=== PATIENT | male | born 1965 | race African-American/Black ===

== ENCOUNTER 2019-07-28 14:30 | Emergency (ER) | payer SELFPAY ==
--- NOTE | ~2019-07-28 | XR_ITS ---
EXAMINATION: XR abdomen obstructive series DATE: 07/28/2019 17:07 INDICATION: Nausea and vomiting TECHNIQUE: Supine and upright views of the abdomen. FINDINGS: No prior studies for comparison. The visualized lung parenchyma is normal.. There is a nonobstructive bowel gas pattern. Gas and stool are seen throughout the colon to the level of the rectum. There is no free air. IMPRESSION: 1. No acute abdominal abnormality. Reviewed, dictated and finalized at location A. [facility]
[2019-07-28 14:32] VITALS: BP 134/88; PULSE 85; RESP 20; TEMP 36.7; O2SAT 99
[2019-07-28 14:47] LABS: Basophils Percent Auto 0.5 % (0.2-1.2); Eosinophils Absolute Auto 0.1 K/mm3 (0-0.3); Eosinophils Percent Auto 2.2 % (0-4.4); Hemoglobin 13.9 g/dL (14.0-18.0); Immature Granulocyte Absolute 0.02 K/mm3 (0.00-0.031); Immature Granulocyte Percent A 0.3 % (0-0.5); Lymphocytes Absolute Auto 1.84 K/mm3 (0.9-3.2); Lymphocytes Percent Auto 28.5 % (18.3-44.2); Mean Corpuscular HGB Conc 33.1 g/dl (32-36); Mean Corpuscular Hemoglobin 27.6 pg (26-34); Mean Corpuscular Volume 83.5 fl (80-100); Mean Platelet Volume 11.1 fl (7.4-10.4); Monocytes Absolute Auto 0.5 K/mm3 (0.1-0.6); Neutrophils Percent Auto 61.5 % (45.5-73.1); Platelet Count Result 258 k/mm3 (150-375); Red Blood Count 5.03 M/mm3 (4.6-6.20); Red Cell Distribution Width 13.1 % (11.5-14.5); White Blood Count 6.5 K/mm3 (4.5-10.0)
[2019-07-28 15:00] LABS: Alanine Aminotransferase 13 U/L (4-50); Albumin Level 4.5 g/dL (3.5-5.1); Alkaline Phosphatase 86 U/L (38-126); Aspartate Amino Transferase 81 U/L (17-59); Bilirubin,Total 0.4 mg/dL (0.2-1.3); Blood Urea Nitrogen 22 mg/dL (9-20); Calcium 9.4 mg/dL (8.4-10.2); Carbon Dioxide 24 mmol/L (22-30); Chloride 97 mmol/L (98-107); Estimated CRCL calculation 64 ml/min; Estimated Glomerular Filt Rate 53; Glucose 100 mg/dL (75-110); Lipase 19 U/L (23-300); Potassium 3.5 mmol/L (3.4-5.0); Sodium 138 mmol/L (137-145)
--- NOTE | 2019-07-28 16:30 | ED.GENADULT ---
HPI - General Adult General Chief complaint: Nausea/Vomiting/Diarrhea <Erica Crews PA-C - Last Filed: 07/28/19 18:17> Stated complaint: nausea/vomiting <Erica Crews PA-C - Last Filed: 07/28/19 18:17> Time Seen by Provider: 07/28/19 16:27 <Erica Crews PA-C - Last Filed: 07/28/19 18:17> Source: patient <GLENNA Kathleen Last Filed: 07/28/19 18:17> Mode of arrival: ambulatory <GLENNA Kathleen Last Filed: 07/28/19 18:17> Limitations: no limitations <Erica Crews PA-C - Last Filed: 07/28/19 18:17> History of Present Illness HPI narrative: Patient is here for evaluation of vomiting, he had one episode after he ate his salad for lunch. He states that last week he had a similar episode, his understanding from his doctor is that his blood pressure medicine may have been causing him to vomit so they changed him to lisinopril. He states that is been his only medication change and he vomited today once. He has no pain, no fever, he is having normal bowel movements the last one was 3 hours prior to coming to the emergency room. He states incidentally that he is also been have any having more trouble with his vision, but he has not seen an eye doctor. <Erica Crews PA-C - Last Filed: 07/28/19 18:17> Onset (ago): hour(s) <Erica Crews PA-C - Last Filed: 07/28/19 18:17> Exacerbating factors: eating <GLENNA Kathleen Last Filed: 07/28/19 18:17> Associated symptoms: denies other symptoms <Erica Crews PA-C - Last Filed: 07/28/19 18:17> Treatments prior to arrival: none <GLENNA Kathleen Last Filed: 07/28/19 18:17> Related Data Home medications: Home Medications Medication Instructions Recorded Confirmed aspirin 81 mg PO DAILY 07/28/19 atorvastatin 07/28/19 hydrochlorothiazide 07/28/19 lisinopril 07/28/19 metformin 1,000 mg PO DAILY 07/28/19 <Erica Crews PA-C - Last Filed: 07/28/19 18:17> Allergies/adverse reactions: Allergies Allergy/AdvReac Type Severity Reaction Status Date / Time No Known Allergies Allergy Verified 07/28/19 17:17 <Erica Crews PA-C - Last Filed: 07/28/19 18:17> Review of Systems Review of Systems: All systems reviewed & are unremarkable except as noted in HPI and below <Erica Crews PA-C - Last Filed: 07/28/19 18:17> [facility] Social History Social History: Social History (Updated 07/28/19 @ 17:58 by Erica Crews PA-C) Smoking status: Never smoker Alcohol intake: never Substance use: never Occupation/Education: occupation 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 <Erica Crews PA-C - Last Filed: 07/28/19 18:17> Exam Const: General: healthy appearing and no acute distress <Erica Crews PA-C - Last Filed: 07/28/19 18:17> HENMT: Head: normal to inspection <Erica Crews PA-C - Last Filed: 07/28/19 18:17> Eyes: Conjunctivae: conjunctivae normal <Erica Crews PA-C - Last Filed: 07/28/19 18:17> Pupils: Equal, round and reactive pupils present <Erica Crews PA-C - Last Filed: 07/28/19 18:17> Neck: Neck: no lymphadenopathy <Erica Crews PA-C - Last Filed: 07/28/19 18:17> Resp: Effort & Inspection: normal respiratory effort <Erica Crews PA-C - Last Filed: 07/28/19 18:17> Auscultation: clear to auscultation bilaterally <Erica Crews PA-C - Last Filed: 07/28/19 18:17> Cardio: Rate: regular rate <Erica Crews PA-C - Last Filed: 07/28/19 18:17> Rhythm: regular rhythm <Erica Crews PA-C - Last Filed: 07/28/19 18:17> GI: Inspection: normal to inspection <Erica Crews PA-C - Last Filed: 07/28/19 18:17> GI Palp: Yes Soft to palpation <Erica Crews PA-C - Last Filed: 07/28/19 18:17> Auscultation: normal bowel sounds <Erica Crews PA-C - Last Filed: 07/28/19 18:17> Skin: General skin exam: normal color <GLENNA Kathleen Last Filed: 07/28
[2019-07-28 16:38] VITALS: BP 143/93; PULSE 89; RESP 18; O2SAT 97
--- NOTE | 2019-07-28 16:38 | PC.NURSE ---
pedro barker at bedside states that she does not want iv placed.
[2019-07-28 16:46] VITALS: BP 125/88; BP 140/91; PULSE 82; PULSE 89
[2019-07-28 16:48] VITALS: BP 143/94; PULSE 91
[2019-07-28 16:49] VITALS: BP 143/94; PULSE 98; RESP 18; O2SAT 97
[2019-07-28 16:59] LABS: Add Urine Microscopic? YES; Appearance Urine Clear (Clear); Bilirubin Urine Negative (Negative); Blood Urine Negative (Negative); Color Urine Yellow (Yellow); Glucose Urine UA Negative (Negative); Ketones Urine Trace mg/dL (Negative); Leukocyte Esterase Ur Negative LEU/UL (Negative); Mucus Urine Rare /lpf; Nitrate Urine Negative (Negative); Protein Urine Negative (Negative); Specific Grav Ur 1.017 (1.001-1.035); Squamous Epithelial Cell Urine Occasional /hpf (Few); Urobilinogen Urine Negative mg/dL (<2.0); WBC Urine 0-3 /hpf
[2019-07-28 17:16] VITALS: BP 147/84; PULSE 90; RESP 18; O2SAT 98
== END 2019-07-28 17:16 | disposition home or self-care (01) ==
PROVIDERS: Family Medicine; Emergency Provider General Practice; PCP Family Medicine
DX: R11.2 Nausea with vomiting, unspecified (principal); T38.3X5A Adverse effect of insulin and oral hypoglycemic [antidiabetic] drugs, initial encounter; Z79.82 Long term (current) use of aspirin; I10 Essential (primary) hypertension
CPT/HCPCS: 36415; 74019; 80053; 81001; 83690; 85025; 99283

== ENCOUNTER 2023-11-25 13:35 | Emergency (ER) | payer BC, SELFPAY ==
[2023-11-25] VITALS (24 sets, daily range): BP systolic 153–166; BP diastolic 92–114; PULSE 97–108; RESP 17–26; TEMP 37.8; O2SAT 92–100
--- NOTE | ~2023-11-25 | XR_ITS ---
XR chest 1V portable Ordering provider: Josh Brown MD History: 58 years Male with . HTN . Comparison: None. FINDINGS: MEDIASTINUM: The cardiac silhouette is slightly enlarged. Slightly prominent left hilum. LUNGS: No infiltrates, effusions or pneumothorax. Prominent markings bilaterally. OTHER: No free air under the diaphragm. Degenerative the spine. IMPRESSION: No acute cardiopulmonary pathology. Reviewed, dictated and finalized at location A.
--- NOTE | 2023-11-25 13:37 | ECG_ITS ---
Test Date: 2023-11-25 13:47:55 Measurements Intervals [place] Rate: 102 P: 59 RI: 152 QRS: 51 QRSD: 73 T: 36 QT: 307 QTc: 400 Interpretive Statements SINUS TACHYCARDIA POSSIBLE LEFT ATRIAL ENLARGEMENT [-0.1mV P WAVE IN V1/V2] LEFT VENTRICULAR HYPERTROPHY AND ST-T CHANGE [VOLTAGE CRITERIA PLUS ST/T ABNORMALITY] ABNORMAL ECG No previous ECG available for comparison Electronically Signed On 11-26-2023 11:28:52 CDT by Keorn Orr M.D.
[2023-11-25] MEDS: ACETAMINOPHEN 500 MG TABLET 1000 MG PO (14:04)
[2023-11-25] MEDS: amLODIPine BESYLATE 5 MG TABLET 10 MG PO (14:05)
[2023-11-25] MEDS: carvediloL 3.125 MG TABLET PO (14:05)
[2023-11-25] MEDS: hydroCHLOROthiazide 25 MG TABLET PO (14:05)
--- NOTE | 2023-11-25 14:05 | ED.GENADULT ---
HPI - General Adult General Chief complaint: Recheck/Abnormal Lab/Rx Stated complaint: high blood pressure Time Seen by Provider: 11/25/23 13:37 History of Present Illness HPI narrative: 58-year-old male present to the emergency department for evaluation of increased generalized weakness cough congestion and hypertension. Patient states he has been out of his blood pressure meds for approximately last 2 weeks. Patient has attempted to reach out to his primary care physician but he has not yet had the meds filled. Patient states over the last few days he has had increasing generalized weakness with worsening cough. Related Data Home Medications Medication Instructions Recorded Confirmed aspirin 81 mg tablet,delayed 81 mg PO DAILY 07/28/19 release atorvastatin 40 mg tablet 07/28/19 hydrochlorothiazide 25 mg tablet 07/28/19 lisinopril 20 mg tablet 07/28/19 metformin 500 mg tablet,extended 1,000 mg PO DAILY 07/28/19 release 24hr (osmotic) amlodipine 10 mg tablet 10 mg PO DAILY 08/18/22 08/18/22 atorvastatin 40 mg tablet 40 mg PO DAILY 08/18/22 08/18/22 carvedilol 3.125 mg tablet 3.125 mg PO Q12H 08/18/22 08/18/22 hydrochlorothiazide 25 mg tablet 25 mg PO DAILY 08/18/22 08/18/22 lisinopril 20 mg tablet 20 mg PO DAILY 08/18/22 08/18/22 pioglitazone 30 mg tablet 30 mg PO DAILY 08/18/22 08/18/22 Allergies Allergy/AdvReac Type Severity Reaction Status Date / Time No Known Allergies Allergy Verified 09/05/22 12:50 Review of Systems Review of Systems: All systems reviewed & are unremarkable except as noted in HPI and below PMFSH Past Medical History Medical History (Updated 11/25/23 @ 15:59 by Josh Brown MD) Atrial fibrillation with rapid ventricular response Benign essential hypertension Hyperlipidemia Morbid obesity Paroxysmal atrial fibrillation Type 2 diabetes mellitus without complications Social History Social History (System 09/05/22 @ 12:50 by Sejal Walter) Smoking status: Never smoker Tobacco type: cigarettes Second hand tobacco smoke exposure: No Alcohol intake: never Substance use: never Substance use type: does not use Lack of Transportation: No Lack of Food: Never True Current Housing: I Have Housing Concerned About Future Housing: No Difficulty Paying Gas/Electric Bills: No Difficulty Paying for Meds: No Currently Unemployed: No Difficulty w/ Childcare or Family Care: No Living arrangements: with family Occupation/Education: occupation 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 EYES: PERRLA/EOMI, conjunctivae clear. NOSE: Normal no drainage EARS:TMS clear with good light reflex. THROAT: Pharynx clear, no exudate. NECK: Supple. No adenopathy, no masses. RESPIRATORY: Airway patent, respirations nonlabored. Clear to auscultation bilaterally, no rales, rhonchi, wheezing. CARDIOVASCULAR: Regular rate and rhythm without murmurs rubs or gallops. ABDOMINAL: Soft, nontender, nondistended, normal bowel sounds MUSCULOSKELETAL: Moves all extremities. Strength/ROM intact, No edema, No calf tenderness. NEURO: Alert. Cranial nerves II through XII intact. Grossly intact SKIN: Warm, dry. Normal Color Course Vital Signs Vital signs: Vital Signs Temperature 100.0 F H 11/25/23 13:39 Pulse Rate 106 H 11/25/23 13:39 Respiratory Rate 20 11/25/23 13:39 Blood Pressure 163/102 H 11/25/23 13:39 Pulse Oximetry 99 11/25/23 13:39 Oxygen Delivery Room Air 11/25/23 13:39 Temperature 100.0 F H 11/25/23 13:39 Pulse Rate 102 H 11/25/23 15:24 Respiratory Rate 20 11/25/23 15:24 Blood Pressure 154/96 H 11/25/23 15:24 Pulse Oximetry 94 11/25/23 15:24 Oxygen Delivery Room
[2023-11-25 14:09] LABS: Basophils Percent Auto 0.3 % (0.2-1.2); Eosinophils Percent Auto 0.3 % (0-4.4); Hematocrit 41.1 % (42.0-52.0); Hemoglobin 13.2 g/dL (14.0-18.0); Immature Granulocyte Absolute 0.02 K/mm3 (0.00-0.031); Immature Granulocyte Percent A 0.3 % (0-0.5); Lymphocytes Absolute Auto 0.29 K/mm3 (0.9-3.2); Lymphocytes Percent Auto 4.7 % (18.3-44.2); Mean Corpuscular HGB Conc 32.1 g/dl (32-36); Mean Corpuscular Hemoglobin 27.6 pg (26-34); Mean Corpuscular Volume 85.8 fl (80-100); Monocytes Absolute Auto 0.7 K/mm3 (0.1-0.6); Monocytes Percent Auto 11.9 % (2.6-8.5); Neutrophils Absolute Auto 5.1 K/mm3 (1.3-6.7); Neutrophils Percent Auto 82.5 % (45.5-73.1); Platelet Count Result 185 k/mm3 (150-375); Red Blood Count 4.79 M/mm3 (4.6-6.20); Red Cell Distribution Width 14.3 % (11.5-14.5); White Blood Count 6.2 K/mm3 (4.5-10.0)
[2023-11-25 14:20] LABS: Alanine Aminotransferase 8 U/L (6-50); Albumin Level 4.7 g/dL (3.5-5.1); Alkaline Phosphatase 101 U/L (38-126); Anion Gap 8 mmol/L (4-12); Aspartate Amino Transferase 40 U/L (17-59); Bilirubin,Total 0.8 mg/dL (0.2-1.3); Blood Urea Nitrogen 9 mg/dL (9-20); Carbon Dioxide 25 mmol/L (22-30); Chloride 104 mmol/L (98-107); Estimated CRCL calculation 61 ml/min; Estimated Glomerular Filt Rate > 60; Glucose 109 mg/dL (65-110); Potassium 3.9 mmol/L (3.4-5.0); Sodium 137 mmol/L (137-145)
[2023-11-25 14:29] LABS: NT Pro B Type Natriuretic Pept 506 pg/mL (19.9-100)
[2023-11-25 14:41] LABS: INR 1.1; Partial Thromboplastin Time 29.1 Seconds (22.3-36.8); Prothrombin Time 14.5 Seconds (11.1-14.7)
[2023-11-25 15:53] LABS: Influenza A QL RT-PCR Negative (Negative); Influenza B QL RT-PCR Negative (Negative); RSV RNA, RT-PCR Negative (Negative); SARS-CoV-2 RNA PCR Positive (Negative)
== END 2023-11-25 16:41 | disposition home or self-care (01) ==
PROVIDERS: Emergency Provider Emergency Medicine; PCP Family Medicine
DX: U07.1 COVID-19 (principal); I48.91 Unspecified atrial fibrillation; E78.5 Hyperlipidemia, unspecified; E11.9 Type 2 diabetes mellitus without complications
CPT/HCPCS: 36415; 71045; 80053; 83880; 85025; 85610; 85730; 87637; 93005; 99283; A9270

== ENCOUNTER 2024-12-26 07:21 | Outpatient (CLI) | payer OTHER, SELFPAY ==
--- NOTE | ~2024-12-26 | MR_ITS ---
MRI of the brain Clinical History: Lack of coordination Technique: Axial and sagittal T1-weighted images were acquired. These were followed by axial T2-weigh wes, diffusion weighted, gradient, and FLAIR images. Findings: There is no acute infarct, intracranial hemorrhage, or mass lesion. Chronic infarct noted i n the right axilla/right posterior temporal lobe. There is extensive chronic white matter ischemic ch amanda at the periventricular white matter bilaterally. Ventricles and subarachnoid spaces are mildly dilated. Orbits are unremarkable. Paranasal sinuses and mastoid air cells are clear. Major intracranial flow voids appear intact. Sagittal midline structures are intact. IMPRESSION: No acute abnormality. Chronic right occipital/right posterior temporal infarct. Extensive chronic microvascular ischemic change and mild to moderate generalized atrophy. Reviewed, dictated and finalized at location . IMPRESSION: No acute abnormality. Chronic right occipital/right posterior temporal infarct. Extensive chronic microvascular ischemic change and mild to moderate generalize d atrophy.
--- OUTSIDE RECORDS SUMMARY | 2024-12-26 07:23 | XMS_ITS | Clinical Summary ---
Author Organization [facility] Address [address] [address] Care Team Providers Care Stone Polisher Hand Name Role Phone Peterson Oneal MD Primary Care Provider [phone] Source Comments [facility],non-owned Affiliates and Associated Physician Practices is amultiple site organization consisting of ambulatory clinics and hospital sitesin [place], [place], [place] and [place]. This disclosure is being madepursuant to the Care Everywhere program and may not contain all information available regarding this patient. Last updated 18.[facility] Allergies No known active allergies Medications * Be aware that medications may not be up to date on this document. Alwaysverify current medications with the patient. HYDROcodone-acet aminophen ([place]) 5-325 MG tablet Take 1 (one) tablet by mouth every 6 hours as needed for Pain 8 tablet 03/01/2022 Active Social History Tobacco Use Types Packs/Day Years Used Date Smoking Tobacco: Never Smokeless Tobacco: Never Alcohol Use Standard Drinks/Week Comments Never 0 (1 standard drink = 0.6 oz pur e alcohol) AUDIT-C Answer Date Recorded Q1: How often do you have a drink containing alcohol? Never 03/01/2022 Q2: How many drinks containi ng alcohol do you have on a typical day when you are drinking? Patient does not drink Frequency of Binge Drinking Not on file 02/10 Sex and Gender Information Value Date Recorded Sex Assigned at Not on file Legal Sex Male 6:24 PM CDT Gender Identity Not on file Sexual Orientation Not on file Last Filed Vital Signs Vital Sign Reading Time Taken Comments Blood Pressure 138/84 03/01/2022 6:29 PM CDT Pulse 90 03/01/2022 6:29 PM CDT Temperature 37.3 C (99.1 F) 03/01/2022 6:29 PM CDT Respiratory Rate 22 03/01/2022 6:29 PM CDT Oxygen Saturation 96% 03/01/2022 6:29 PM CDT Inhaled Oxygen Concentration - - Weight 106.6 kg (235 lb) 03/01/2022 6:29 PM CDT Height 167.6 cm (5' 6) 03/01/2022 6:29 PM CDT Body Mass Index 37.93 03/01/2022 6:29 PM CDT Plan of Treatment Health Maintenance Due Date Last Done Comments COLOGUARD (AGES 45-75) - COL ON CA SCREENING 1966 COLON MONITORING 1966 COLONOSCOPY - COLON CA SCREENING 1966 CT COLONOGRAPHY - COLON CA SCREENING 1966 Colorectal Cancer Screening 1966 FIT - COLON CA SCREENING 1966 FLEX SIG - COLON CA SCREENING 1966 LIPID TESTING 1966 HIV SCREENING 1981 HEPATITIS C SCREENING 09/22/1984 DTAP/TDAP/TD VACCINES (1 - Tdap) 1985 HEPATITIS B VACCINE (1 of 3 - 19+ 3-dose series) 1985 PNEUMOCOCCAL VACCINE 50+ (1 of 1 - PCV) 2016 ZOSTER VACCINE (1 of 2) 2016 COVID-19 VACCINE (2 - 2023-2 5 season) 2024 08/15/2020 DEPRESSION SCREENING 06/11/2024 INFLUENZA VACCINE (#1) 2025 8, 03/11/2014 HIB VACCINE Aged Out No longer eligi ble based on patient's age to complete this topic HPV VACCINE Aged Out No longer eligi ble based on patient's age to complete this topic MENINGOCOCCAL (Group B) VACCINE SHARED DECISION-MAKING Aged Out No longer eligible based on patient's age to complete this topic MENINGOCOCCAL GROUPS A/C/Y/W VACCINE Aged Out No longer eligible b ased on patient's age to complete this topic Insurance ANTHEM PAYOR GENERIC ANTHEM Care Teams Stone Polisher Hand Relationship Specialty Start Date End Date Peterson Oneal MD [address] [place] [id number] PCP - General Family Medicine 03/01/22
--- OUTSIDE RECORDS SUMMARY | 2024-12-26 07:23 | XMS_ITS | Referral Summary ---
Author Organization [facility] [address] Address [address] [place] [address] Care Team Providers Care Mechanical Striper Name Role Phone Peterson Oneal MD Primary Care Provider [phone] Allergies No known active allergies Medications metFORMIN XR (GLUCOPHAGE XR) 500 mg 24 hr tablet TAKE 2 TABLETS BY MOUTH EVERY MORNING AND 1 TABLET EVERY EVENING 07/10/2020 Active hydroCHLOROthia zide (HYDRODIURIL) 25 mg tablet Take 25 mg by mouth every morning 08/16/2020 Active aspirin 81 mg enteric coated tablet aspirin 81 mg tablet,delay ed release One po daily Active lisinopriL (PRINIVIL,ZESTR [place]) 20 mg tablet Take 20 mg by mouth daily 08/16/2020 Active atorvastatin (LIPITOR) 40 mg tablet Take 40 mg by mouth daily 08/16/2020 Active pioglitazone (ACTOS) 30 mg tabletIndicatio ns:type 2 diabetes mellitus Take 30 mg by mouth daily Active apixaban (Eliquis) 5 mg tablet Take 1 tablet (5 mg total) by mouth 2 (two) times a day 180 tablet 1 11/25/2020 Active carvediloL (COREG) 3.125 mg tabletIndicatio ns:PAF (paroxysmal atrial fibrillation) (HCC) Take 1 tablet (3.125 mg total) by mouth 2 (two) times a day with meals 180 tablet 1 11/25/2020 Active Active Problems Problem Noted Date Diagnosed Date Nonrheumatic aortic valve stenosis 11/01/2020 Essential hypertension 09/26/2020 Obesity, Class III, BMI 40-49.9 (morbid obesity) 09/26/2020 Hyperlipidemia associated with type 2 diabetes m ellitus 09/26/2020 PAF (paroxysmal atrial fibrillation) 09/20/2020 Social History Tobacco Use Types Packs/Day Years Used Date Smoking Tobacco: Never Smokeless Tobacco: Never Personal Safety Answer Date Recorded Getting School Help Needed Not on file 08/05 Sex and Gender Information Value Date Recorded Sex Assigned at Not on file Legal 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 Gender Identity Not on file Sexual Orientation Not on file Last Filed Vital Signs Vital Sign Reading Time Taken Comments Blood Pressure 110/70 04/14/2021 7:50 AM CDT Pulse 94 04/14/2021 7:50 AM CDT Temperature - - Respiratory Rate - - Oxygen Saturation 98% 04/14/2021 7:50 AM CDT Inhaled Oxygen Concentration - - Weight 112 kg (246 lb 14.4 oz) 04/14/2021 7:50 A M CDT Height 167.6 cm (5' 6) 04/14/2021 7:50 AM CDT Body Mass Index 39.85 04/14/2021 7:50 AM CDT Plan of Treatment Not on file Insurance Care Teams Mechanical Striper Relationship Specialty Start Date End Date Peterson Oneal MD [address] [place] [id number] PCP - General Family Medicine 09/15/20
--- OUTSIDE RECORDS SUMMARY | 2024-12-26 07:23 | XMS_ITS | Continuity of Care Document ---
Author Organization formerly [facility] Address [address] [place] [address] [place] [address] Phone Care Team Providers Care Decay Control Operator Name Role Phone Justo De La Garza Unavailable Unavailable Procedures Procedure Date Office/outpatient Visit, [facility] Advance Directives Directive Yes / No Effective Date File Name No Information Encounters Encounter Description Practice Location Reason(s) For Visit Diagnoses Date Provider Providers Copied on Encounter Office/outpat ient Visit, [facility], [address], [place], [place], [id number], tel:[phone] [facility] No Information Aug-3 0-201 0 Frederic Justo. [address], [place], [address], [place]. tel:[phone] Family History Family Member Type Diagnosis Age At Onset No Information Payers Payer name Insurance type Covered libertarian ID Authoriza tion(s) No Information Social History Type Description Quantity Date Captured Comments Sex Male Smoking Status No Information Chief Complaint And Reason For Visit No Information Reason For Referral Reason For Referral No Information History Of Present Illness Encounter Date Complaint History Of Prese nt Illness No Information Functional Status Date Functional Assessmen t No Information Instructions Date Instruction Additional Infor mation No Information Assessments Type Assessment Date No Information Patient Care Teams Name Effective Dates (start - stop) Status Members No Information
--- OUTSIDE RECORDS SUMMARY | 2024-12-26 07:24 | XMS_ITS | Clinical Summary ---
Author Organization [facility] [address] Address [address] [place] [address] Care Team Providers Care Manager Fleet Name Role Phone Peterson Oneal MD Primary Care Provider [phone] Allergies No known active allergies Medications metFORMIN [...] Hyperlipidemia associated with type 2 diabetes m nicole 09/26/2020 PAF (paroxysmal atrial fibrillation) 09/20/2020 Medical History Medical History Date Comments Hypertension Diabetes mellitus (HCC) Stroke (HCC) Family History Medical History Relation Name Comments No Known Problems Daughter Diabetes Mother Relation Name Status Comments Daughter Alive Father (Age 84) Mother (Age 68) Social History Tobacco Use Types Packs/Day Years Used Date Smoking Tobacco: Never Smokeless Tobacco: Never Personal Safety Answer Date Recorded Getting School Help Needed Not on file 08/05 Sex and Gender Information Value Date Recorded Sex Assigned at Not on file 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 Care Teams Manager Fleet Relationship Specialty Start Date End Date Peterson Oneal MD [address] [place] [address] PCP - General Family Medicine 09/15/20
--- OUTSIDE RECORDS SUMMARY | 2024-12-26 07:24 | XMS_ITS | Clinical Summary ---
Author Organization [facility] Address [address] [place] [id number] Care Team Providers Care [employer] Designer Name Role Phone None, Provider Primary Care Provider Unavaila ble Allergies No known active allergies Encounters Date Type Department Care Team Description 11/21/2024 10:33 AM CDT - 11/21/2024 6:31 PM CDT Emergency [facility] Emergency Room [place], [place] [id number] Tc Hill, Blurred Vision Discharge Disposition: Home or Self Care (Routine Discharge) 11/21/2024 Travel from Last 3 Months Social History Tobacco Use Types Packs/Day Years Used Date Smoking Tobacco: Former Cigarettes Smokeless Tobacco: Never Tobacco Cessation:Counseling Given: Not Answered Alcohol Use Standard Drinks/Week Comments Not Currently 0 (1 standard drink = 0.6 oz pur e alcohol) Sex and Gender Information Value Date Recorded Sex Assigned at Male 11/21/2024 10:29 AM CDT Legal Sex Male 10:07 AM CDT Gender Identity Not on file Sexual Orientation Not on file Last Filed Vital Signs Vital Sign Reading Time Taken Comments Blood Pressure 174/95 11/21/2024 4:15 PM CDT Pulse 67 11/21/2024 10:11 AM CDT Temperature 36.7 C (98 F) 11/21/2024 10:11 AM CDT Respiratory Rate 16 11/21/2024 10:11 AM CDT Oxygen Saturation 98% 11/21/2024 4:15 PM CDT Inhaled Oxygen Concentration - - Weight 106.6 kg (235 lb) 11/21/2024 10:11 AM CDT Height 170.2 cm (5' 7) 11/21/2024 10:11 AM CDT Body Mass Index 36.81 11/21/2024 10:11 AM CDT Plan of Treatment Health Maintenance Due Date Last Done Comments ASCVD LDL 1966 ASCVD Statin 1965 Colorectal Cancer Screening Colonoscopy (10 Years) 1966 Annual Physical 1969 Hepatitis C 1984 Hepatitis B Vaccines (1 of 3 - 19+ 3-dose series) 1985 Pneumococcal Vaccine: 50+ Years (2 of 2 - PCV) 2016 03/11/2014 Zoster Vaccines (1 of 2) 2016 COVID-19 Vaccine (3 - 2023-2 5 season) 2024 05/15/2021, 08/15/2020 DTaP, Tdap and Td Vaccines ( 3 - Td or Tdap) 05/01/2028 05/01/2018, 04/30/2008 Meningococcal B Vaccine Aged Out No l onger eligible based on patient's age to complete this topic Meningococcal Vaccine Aged Out No tank gisela eligible based on patient's age to complete this topic RSV Immunizations Under 20 Months Aged Out No longer eligible b ased on patient's age to complete this topic Procedures Procedure Name Priority Date/Time Associated Diagnosis Comments CTA HEAD+NECK STAT 11/21/2024 4:[address] HEAD WO CON STAT 11/21/2024 11:21 AM CDT ECG 12-LEAD Routine 11/21/2024 10:51 AM CDT ELECTROCARDIOGRAM REPORT Routine 025 10:51 AM CDT XR CHEST PORTABLE STAT 11/21/2024 10: 43 AM CDT TSH W/REFLEX STAT 11/21/2024 10:41 AM CDT MAGNESIUM STAT 11/21/2024 10:41 AM CDT TROPONIN, QUANT STAT 11/21/2024 10:41 AM CDT COMPREHENSIVE METABOLIC PANEL STAT 11/21/2024 10:41 AM CDT PARTIAL THROMBOPLASTIN TIME,PTT STAT 11/21/2024 10:41 AM CDT PROTHROMBIN TIME, VENOUS STAT 025 10:41 AM CDT CBC W/DIFF AUTOMATED STAT 11/21/2024 10:41 AM CDT from Last 3 Months Results * CTA HEAD+NECK (11/21/2024 4:02 PM CDT) Anatomical Region Laterality Modality Head, Neck Computed Tomogra phy 11/21/2024 4:34 PM CDT Impressions 11/21/2024 4:43 PM CDT IMPRESSION: 1. No evidence of large vessel occlusion identified in the [place]. 2. No significant stenosis in the major neck arteries. Referred By: Interpreted By: Marco Grey MD, 11/21/2024 4:34 PM Narrative 11/21/2024 4:[address]T [address] [address] INDICATION: Blurry vision, ataxia EXAMINATION: CTA HEAD+NECK TECHNIQUE: CT angiography of the head and neck was performed after uneventful intravenous injection of 80mL Isovue 370. Stenoses are graded using NASCET criteria. 3D Post-processed images were reconstructed on an independent workstation. A radiation dose lowering technique was used for this procedure, which may include, but is not limited to, dose reduction technique, automated exposure control, the use of iterative reconstruction, ALARA (As Low As Reasonably Achievable) techniques, and Image Gently techniques. DATE/TIME: 11/21/2024 3:49 PM COMPARISON: Head CT, same date FINDINGS: NECK: There is ectasia of the ascending thoracic aorta, 3.9 cm. Coronary artery calcifications are noted. Normal 3 vessel aortic arch anatomy. No significant stenosis in the great vessel origins. No significant stenosis in either common carotid artery or internal carotid artery. No significant stenosis identified in either vertebral artery. No evidence of arterial dissection. Cervical spondylosis is noted with bridging anterior osteophytes. HEAD: Basilar artery is patent. Intracranial ICA segments are patent. No definite significant stenosis or occlusion identified in the major proximal portions of the anterior, middle or posterior cerebral arteries. No intracranial aneurysm identified. Procedure Note Marco Grey MD - 11/21/2024 [facility] [address] [place], [place] [address] INDICATION: Blurry vision, ataxia EXAMINATION: CTA HEAD+NECK TECHNIQUE: CT angiography of the head and neck was performed after uneventfulintravenous injection of 80mL Isovue 370. Stenoses are graded using NASCETcriteria. 3D Post-processed images were reconstructed on an independentworkstation. A radiation dose lowering technique was used for thisprocedure, which may include, but is not limited to, dose reductiontechnique, automated exposure control, the use of iterativereconstruction, ALARA (As Low As Reasonably Achievable) techniques, andImage Gently techniques. DATE/TIME: 11/21/2024 3:49 PM COMPARISON: Head CT, same date FINDINGS: NECK: There is ectasia of the ascending thoracic aorta, 3.9 cm. Coronary arterycalcifications are noted. Normal 3 vessel aortic arch anatomy. Nosignificant stenosis in the great vessel origins. No significant stenosisin either common carotid artery or internal carotid artery. Nosignificant stenosis identified in either vertebral artery. No evidenceof arterial dissection. Cervical spondylosis is noted with bridginganterior osteophytes. HEAD: Basilar artery is patent. Intracranial ICA segments are patent. Nodefinite significant stenosis or occlusion identified in the majorproximal portions of the anterior, middle or posterior cerebral arteries.No intracranial aneurysm identified. IMPRESSION: 1. No evidence of large vessel occlusion identified in the [place]. 2. No significant stenosis in the major neck arteries. Referred By: Interpreted By: Marco Grey MD, 11/21/2024 4:34 PM us Tc Catalina Heberer DO CT Final Res ult * CT HEAD WO CON (11/21/2024 11:21 AM CDT) Anatomical Region Laterality Modality Head Computed Tomogra phy 11/21/2024 11:2 6 AM CDT Impressions 11/21/2024 11:30 AM CDT IMPRESSION: 1. No acute intracranial process identified. 2. Moderate global volume loss and moderately severe chronic small vessel ischemic change. Superimposed small vessel ischemic change cannot be excluded. 3. Chronic right occipital infarct. (CT has limited sensitivity for detection of acute ischemia). If acute ischemia is of clinical concern MRI can be considered. Ordered By: CATALINA HALL Interpreted By: Kaveh Kapadia MD, 11/21/2024 11:26 AM Narrative 11/21/2024 11:30 AM CDT [address] [address] Exam: CT head without contrast Exam Date/Time: 11/21/2024 11:14 AM Indication: 59 male. Pleural effusion. Confusion Comparison: No existing relevant imaging study available. Technique: Computed tomography of the head performed without contrast from the vertex to the skull base. A dose lowering technique was used for this procedure, which may include, but is not limited to, dose reduction technique, automated exposure control, the use of iterative reconstruction, and ALARA (As Low As Reasonably Achievable) / Image Gently techniques. CT findings: Moderate global volume loss with commensurate prominence of the ventricles and sulci.. No intracranial hemorrhage, extra-axial collection, mass effect or midline shift. The right occipital chronic infarct related encephalomalacia in the right posterior tibial artery distribution. No other established cortical or vascular territorial infarct. Pepper-white association elsewhere is preserved. Bilateral cerebral periventricular and patchy and confluent subcortical white matter prominent hypoattenuation the, nonspecific but likely related to moderately severe chronic small vessel ischemic change. Superimposed acute ischemia cannot be excluded. Couple of prominent focal hypodensities left basal ganglia may represent prominent perivascular spaces versus a lacunar infarcts. Patent basilar cisterns. Visualized posterior fossa is grossly unremarkable. Visualized orbits and orbital structures are unremarkable. Imaged portions of the paranasal sinuses and mastoid air cells are clear. No scalp soft tissue swelling or hematoma identified. Calvarium is unremarkable. Procedure Note Kaveh Kapadia MD - 11/21/[address] [address] Exam: CT head without contrast Exam Date/Time: 11/21/2024 11:14 AM Indication: 59 male. Pleural effusion. Confusion Comparison: No existing relevant imaging study available. Technique: Computed tomography of the head performed without contrast fromthe vertex to the skull base. A dose lowering technique was used for thisprocedure, which may include, but is not limited to, dose reductiontechnique, automated exposure control, the use of iterativereconstruction, and ALARA (As Low As Reasonably Achievable) / Image Gentlytechniques. CT findings: Moderate global volume loss with commensurate prominence of the ventriclesand sulci.. No intracranial hemorrhage, extra-axial collection, mass effect or midlineshift. The right occipital chronic infarct related encephalomalacia in the rightposterior tibial artery distribution. No other established cortical orvascular territorial infarct. Pepper-white association elsewhere ispreserved. Bilateral cerebral periventricular and patchy and confluent subcorticalwhite matter prominent hypoattenuation the, nonspecific but likely relatedto moderately severe chronic small vessel ischemic change. Superimposedacute ischemia cannot be excluded. Couple of prominent focal hypodensities left basal ganglia may representprominent perivascular spaces versus a lacunar infarcts. Patent basilar cisterns. Visualized posterior fossa is grosslyunremarkable. Visualized orbits and orbital structures are unremarkable. Imaged portionsof the paranasal sinuses and mastoid air cells are clear. No scalp soft tissue swelling or hematoma identified. Calvarium isunremarkable. IMPRESSION: 1. No acute intracranial process identified. 2. Moderate global volume loss and moderately severe chronic small vesselischemic change. Superimposed small vessel ischemic change cannot beexcluded. 3. Chronic right occipital infarct. (CT has limited sensitivity for detection of acute ischemia). If acuteischemia is of clinical concern MRI can be considered. 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: : 1965 Requested By: CATALINA HALL Order Number: [id number] Reading : Girma Yuan Measurements Intervals [place] Rate: 73 P: 57 CA: 153 QRS: 40 QRSD: 75 T: 27 QT: 375 QTc: 415 Interpretive Statements SINUS RHYTHM WITH OCCASIONAL SUPRAVENTRICULAR PREMATURE COMPLEXES NONSPECIFIC T-WAVE ABNORMALITY No previous ECG available for comparison Other ischemic changes, not STEMI Preliminary EKG Interpretation by Hermilo Amezquita Procedure Note Girma Yuan MD - 11/21/[address] Test Date: 2024-11-21 Pat Name: TAI RAY Department: 41 Room: EXAM14 Gender: M Mortgage Specialist: : 1965 Requested By: CATALINA HALL Order Number: [id number] Reading BRITNEY Yuan Measurements Intervals [place] Rate: 73 P: 57 CA: 153 QRS: 40 QRSD: 75 T: 27 QT: 375 QTc: 415 Interpretive Statements SINUS RHYTHM WITH OCCASIONAL SUPRAVENTRICULAR PREMATURE COMPLEXES NONSPECIFIC T-WAVE ABNORMALITY No previous ECG available for comparison Other ischemic changes, not STEMI Preliminary EKG Interpretation by Hermilo Amezquita Catalina Hall PA-C ECG ORDERABLES Final Resul t [facility] * EKG Reading (11/21/2024 10:51 AM CDT) Narrative Tc Hill DO - 11/21/2024 10:51 AM CDT Tc Hill DO 11/21/2024 7:44 PM EKG Reading Date/Time: 11/21/2024 10:51 AM Performed by: Tc Hill DO Authorized by: Tc Hill DO Interpreted by ED physician Rhythm: sinus rhythm Rate: normal BPM: 73 QRS axis: normal Conduction: conduction normal Clinical impression: non-specific ECG Comments: Nonspecific ST segment changes Tc Hill DO [facility] Final Result * XR CHEST PORTABLE (11/21/2024 10:43 AM CDT) Anatomical Region Laterality Modality Chest Radiographic Ashley ging 11/21/2024 10:4 5 AM CDT Impressions 11/21/2024 10:45 AM CDT IMPRESSION: No acute findings Ordered By: CATALINA HALL Interpreted By: Gavin Fowler MD, 11/21/2024 10:45 AM Narrative 11/21/2024 10:45 AM CDT [address] [address] SINGLE VIEW OF THE CHEST Clinical history: Confusion Comparison: None A single view of the chest demonstrates the cardiac silhouette to be normal in size and appearance. The pulmonary vessels appear normal. The Lungs are clear. No consolidations or effusions are seen. Procedure Note Gavin Fowler MD - 11/21/2024 [facility] [address] [place], [place] [address] SINGLE VIEW OF THE CHEST Clinical history: Confusion Comparison: None A single view of the chest demonstrates the cardiac silhouette to benormal in size and appearance. The pulmonary vessels appear normal. TheLungs are clear. No consolidations or effusions are seen. IMPRESSION: No acute findings Ordered By: CATALINA HALL Interpreted By: Gavin Fowler MD, 11/21/2024 10:45 AM Catalina Hall PA-C GENERAL IMAGING Final Resul t * TSH W/REFLEX (11/21/2024 10:41 AM CDT) TSH 1.200 0.358 - 3.74 uIU/ML 11/21/2024 11:20 AM CDT [facility] Comment: HIGH DOSES OF BIOTIN MAY INTERFERE WITH THIS TEST RESULT. CORRELATION TO CLINICAL HISTORY AND PRESENTATION RECOMMENDED. FREE T4 NOT INDICATED 11/21/2024 10:4 1 AM CDT Catalina Hall PA-C LABORATORY Final Resul t [facility] [address] [place] [address], [place] [phone] * (ABNORMAL) PARTIAL THROMBOPLASTIN TIME,PTT (11/21/2024 10:41 AM CDT) PTT 37.1(H) 25.1 - 36.5 SEC 11/21/2024 11:14 AM CDT [facility] 11/21/2024 10:4 1 AM CDT Catalina Hall PA-C LABORATORY Final Resul t Performing Organization Address [facility] Co de Phone Number [facility] [address] [place] [address], [place] [phone] * (ABNORMAL) PROTIME/INR, VENOUS (11/21/2024 10:41 AM CDT) PROTIME 14.7(H) 10.2 - 12.9 SEC 11/21/2024 11:14 AM CDT [facility] INR 1.3 11/21/2024 11:14 AM CDT [facility] Comment: Recommended INR Therapeutic Goals: 2.0-3.0 Routine Therapy 2.5-3.5 Mechanical Prosthetic Valves (High Risk) 11/21/2024 10:4 1 AM CDT Catalina Hall PA-C LABORATORY Final Resul t Performing Organization Address [facility] Co de Phone Number [facility] [address] [place] [address], [place] [phone] * (ABNORMAL) COMPREHENSIVE METABOLIC PANEL (11/21/2024 10:41 AM CDT) GLUCOSE 121(H) 70 - 99 MG/DL 11/21/2024 11:20 AM CDT [facility] BUN 13 7 - 18 MG/DL 11/21/2024 11:20 AM CDT [facility] CREATININE S/P/B 1.26 0.7 - 1.3 MG/DL 11/21/2024 11:20 AM CDT [facility] SODIUM S/P/B 138 136 - 145 MMOL/L 11/21/2024 11:20 AM CDT [facility] POTASSIUM S/P/B 3.8 3.5 - 5.1 MMOL/L 11/21/2024 11:20 AM CDT [facility] CHLORIDE S/P/B 109 97 - 115 MMOL/L 11/21/2024 11:20 AM T [facility] CO2 23.9 21 - 32 MMOL/L 11/21/2024 11:20 AM T [facility] CALCIUM S/P/B 9.1 8.5 - 10.1 MG/DL 11/21/2024 11:20 AM CDT [facility] BILIRUBIN TOTAL S/P/B 0.7 0.2 - 1.2 MG/DL 11/21/2024 11:20 AM T [facility] Comment: THIS ASSAY IS NOT RECOMMENDED FOR PATIENTS UNDERGOING TREATMENT WITH ELTROMBOPAG DUE TO THE POTENTIAL FOR FALSELY ELEVATED RESULTS. TOTAL PROTEIN S/P/B 7.4 6.4 - 8.2 G/DL 11/21/2024 11:20 AM T [facility] ALBUMIN S/P/B 3.6 3.4 - 5.0 G/DL 11/21/2024 11:20 AM T [facility] AST 37 15 - 37 U/L 11/21/2024 11:20 AM T [facility] ALT 12(L) 16 - 60 U/L 11/21/2024 11:20 AM T [facility] ALKALINE PHOSPHATASE S/P/B 78 50 - 136 U/L 11/21/2024 11:20 AM T [facility] ANION GAP 5.1 2 - 10 MMOL/L 11/21/2024 11:20 AM T [facility] BUN CREATININE RATIO 10.3 6 - 26 11/21/2024 11:20 AM T [facility] A/G RATIO 0.9(L) 1.0 - 2.0 RATIO 11/21/2024 11:20 AM CDT [facility] GFR ESTIMATE 66(L) >90 ML/MIN/1.7 3 M2 11/21/2024 11:20 AM CDT [facility] Comment: NOTE: eGFR is not calculated for patients <18 years of age or gender unknown. This is an estimated GFR calculation using the new CKD EPI creatinine equation without race and so does not require a correction factor for race. This estimated GFR should not be used for calculating drug doses. 11/21/2024 10:4 1 AM CDT us Catalina Hall PA-C LABORATORY Final Resul t [facility] [address] [place] [address], [place] [phone] * (ABNORMAL) CBC W/DIFF AUTOMATED (11/21/2024 10:41 AM CDT) WBC 4.79 4.5 - 11.0 x10'3/uL 11/21/2024 10:57 AM CDT [facility] RBC 4.73 4.70 - 6.10 x10'6/uL 11/21/2024 10:57 AM CDT [facility] HGB 13.0(L) 14.0 - 18.0 G/DL 11/21/2024 10:57 AM CDT [facility] HCT 40.0(L) 43.0 - 54.0 % 11/21/2024 10:57 AM CDT [facility] MCV 84.6 80.0 - 94.0 FL 11/21/2024 10:57 AM CDT [facility] MCH 27.5 27.0 - 31.0 PG 11/21/2024 10:57 AM CDT [facility] MCHC 32.5 32.0 - 36.0 G/DL 11/21/2024 10:57 AM CDT [facility] RDW 13.7 11.5 - 14.5 % 11/21/2024 10:57 AM CDT [facility] PLT 190 130 - 400 x10'3/uL 11/21/2024 10:57 AM CDT [facility] MPV 10.8 9.3 - 12.2 FL 11/21/2024 10:57 AM CDT [facility] DIFFERENTIAL TYPE AUTOMATED DIFFERENTIAL 11/21/2024 10:57 AM CDT [facility] NEUTROPHILS % 64.1 % 11/21/2024 10:57 AM CDT [facility] LYMPHOCYTES % 25.7 % 11/21/2024 10:57 AM CDT [facility] MONOCYTES % 7.3 % 11/21/2024 10:57 AM CDT [facility] EOSINOPHILS 2.3 % 11/21/2024 10:57 AM CDT [facility] BASOPHILS 0.2 % 11/21/2024 10:57 AM CDT [facility] IMMATURE GRANS % 0.4 % 11/22/19 10:57 AM CDT [facility] ABS. NEUTROPHILS 3.07 1.80 - 7.70 x10'3/uL 11/21/2024 10:57 AM CDT [facility] ABS. LYMPHOCYTES 1.23 1.00 - 4.80 x10'3/uL 11/21/2024 10:57 AM CDT [facility] ABS. MONOCYTES 0.35 0.30 - 0.82 x10'3/uL 11/21/2024 10:57 AM CDT [facility] ABS. EOSINOPHILS 0.11 0.04 - 0.54 x10'3/uL 11/21/2024 10:57 AM CDT [facility] ABS. BASOPHILS 0.01 0.01 - 0.08 x10'3/uL 11/21/2024 10:57 AM CDT [facility] ABS. IMMATURE GRANULOCYTES 0.02 0.00 - 0.49 x10'3/uL 11/21/2024 10:57 AM CDT [facility] 11/21/2024 10:4 1 AM CDT us Catalina Hall PA-C LABORATORY Final Resul t Performing Organization Address City/[facility]/ZIP Co de Phone Number [facility] [address] [place] [address], [place] [phone] * TROPONIN, QUANT (11/21/2024 10:41 AM CDT) TROPONIN I HIGH SENSITIVITY 28 <79 ng/L 11/21/2024 11:20 AM CDT [facility] Comment: HIGH DOSES OF BIOTIN, TROPONIN-SPECIFIC AUTOANTIBODIES, AND ANTIBODY THERAPY CONTAINING HAMA MAY INTERFERE WITH THIS TEST RESULT. CORRELATION TO CLINICAL HISTORY AND PRESENTATION RECOMMENDED. 11/21/2024 10:4 1 AM CDT us Catalina Hall PA-C LABORATORY Final Resul t [facility] [address] [place] [address], [place] [phone] * MAGNESIUM (11/21/2024 10:41 AM CDT) MAGNESIUM 2.2 1.8 - 2.4 MG/DL 11/21/2024 11:20 AM CDT [facility] 11/21/2024 10:4 1 AM CDT us Catalina Hall PA-C LABORATORY Final Resul t [facility] [address] [place] [address], [place] [phone] from Last 3 Months Insurance [facility] Care Teams [employer] Designer Relationship Specialty Start Date End Date None, Provider, PCP - General UNKNOWN PHYSICIAN SPECIALTY 11/21/24
== END 2024-12-26 07:22 | disposition home or self-care (01) ==
PROVIDERS: PCP Family Medicine; Visit Provider Family Medicine
DX: R27.9 Unspecified lack of coordination (principal); Z86.73 Personal history of transient ischemic attack (TIA), and cerebral infarction without residual deficits
CPT/HCPCS: 70551

== ENCOUNTER 2025-05-22 14:17 | Inpatient (IN) | payer OTHER, SELFPAY ==
[2025-05-22] VITALS (33 sets, daily range): BP systolic 98–159; BP diastolic 61–126; PULSE 82–173; RESP 15–31; TEMP 36.3–36.8; O2SAT 88–100; BMI 39.6
--- NOTE | ~2025-05-22 | XR_ITS ---
EXAMINATION: XR chest 1V portable DATE: 05/22/2025 15:23 INDICATION: Shortness of breath TECHNIQUE: A single frontal view of the chest was obtained. COMPARISON: November 25, 2023 FINDINGS: Consolidative changes in the left upper lobe with bibasilar infiltrates also possibly developing. Small left base effusion may also be present. Heart shadow upper limits normal. No pneumothorax or subphrenic free air seen. IMPRESSION: 1. Findings suggest multi lobar pneumonia. Findings should be followed radiographically until clear. Reviewed, dictated and finalized at location A. STAINER IMPRESSION: 1. Findings suggest multi lobar pneumonia. Findings should be followed radiogra phically until clear.
--- NOTE | 2025-05-22 14:22 | ECG_ITS ---
Test Date: 2025-05-22 14:25:22 Measurements Intervals [place] Rate: 145 P: 0 DC: 0 QRS: 34 QRSD: 78 T: 181 QT: 291 QTc: 453 Interpretive Statements ATRIAL FIBRILLATION WITH RAPID VENTRICULAR RESPONSE WITH ABERRANT CONDUCTION OR VENTRICULAR PREMATURE COMPLEXES LEFT VENTRICULAR HYPERTROPHY WITH ST-T CHANGE NONSPECIFIC T-WAVE ABNORMALITY- INF/LAT LEADS BASELINE ARTIFACT- I, II, III, AVR, AVL, AVF, V1, V4-V6 ABNORMAL ECG Compared to ECG 11/25/2023 13:47:55 Sinus tachycardia no longer present Electronically Signed On 05-22-2025 14:28:44 LUSTER REPAIRER by Aneudy Flor D.O.
[2025-05-22 14:35] LABS: Hematocrit 40.7 % (42.0-52.0); Hemoglobin 12.9 g/dL (14.0-18.0); Immature Granulocyte Percent A 0.3 % (0-0.5); Lymphocytes Absolute Auto 1.81 K/mm3 (0.9-3.2); Mean Corpuscular HGB Conc 31.7 g/dl (32-36); Mean Corpuscular Hemoglobin 28.7 pg (26-34); Mean Corpuscular Volume 90.4 fl (80-100); Nucleated Red Blood Cells Absolute Auto 0.000 K/mm3 (0.0-0.012); Nucleated Red Blood Cells Perc 0.0 % (0.0-0.2); Platelet Count Result 216 k/mm3 (150-375); Red Blood Count 4.50 M/mm3 (4.6-6.20); White Blood Count 6.7 K/mm3 (4.5-10.0)
[2025-05-22 14:44] LABS: INR 1.4; Prothrombin Time 17.0 Seconds (11.1-14.7)
[2025-05-22 14:45] LABS: Partial Thromboplastin Time 30.6 Seconds (22.3-36.8)
--- NOTE | 2025-05-22 14:45 | ECG_ITS ---
Test Date: 2025-05-22 14:48:05 Measurements Intervals [place] Rate: 91 P: 0 CT: 0 QRS: 40 QRSD: 77 T: 180 QT: 365 QTc: 451 Interpretive Statements ATRIAL FIBRILLATION LEFT VENTRICULAR HYPERTROPHY WITH ST-T CHANGE BORDERLINE T WAVE ABNORMALITY- INFERIOR LEADS BASELINE ARTIFACT- I, II, III ABNORMAL ECG Compared to ECG 05/22/2025 14:25:22 HEART RATE HAS DECREASED Electronically Signed On 05-22-2025 15:05:41 POCKETS AND PIECES NECKTIE OPERATOR by Aneudy Flor D.O.
[2025-05-22 14:52] LABS: Alanine Aminotransferase 20 U/L (6-50); Albumin Level 3.8 g/dL (3.5-5.1); Alkaline Phosphatase 79 U/L (38-126); Anion Gap 6 mmol/L (4-12); Aspartate Amino Transferase 95 U/L (17-59); Bilirubin,Total 0.6 mg/dL (0.2-1.3); Blood Urea Nitrogen 14 mg/dL (9-20); Calcium 8.8 mg/dL (8.4-10.2); Carbon Dioxide 21 mmol/L (22-30); Chloride 112 mmol/L (98-107); Estimated CRCL calculation 61 ml/min; Estimated Glomerular Filt Rate 52; Glucose 125 mg/dL (65-110); Lipase 17 U/L (23-300); Potassium 4.2 mmol/L (3.4-5.0); Sodium 139 mmol/L (137-145); Total Protein 6.8 g/dL (6.3-8.2)
[2025-05-22 15:03] LABS: Troponin I 0.081 ng/mL (0.000-0.034)
[2025-05-22 15:12] LABS: Magnesium 2.2 mg/dL (1.6-2.3)
[2025-05-22] MEDS: ASPIRIN 81 MG CHEWABLE TABLET 324 MG PO (15:13)
[2025-05-22 15:16] LABS: NT Pro B Type Natriuretic Pept 6370 pg/mL (19.9-100)
--- NOTE | 2025-05-22 15:47 | ED_ITS ---
HPI - General Adult General Chief complaint: Shortness of Breath/Dyspnea Stated complaint: SOB Time Seen by Provider: 05/22/25 14:34 History of Present Illness HPI narrative: Patient 59-year-old gentleman presents emergency department chief complaint of shortness of breath and palpitations. Patient reports that he has history of stroke and reports that he takes anticoagulants the patient states that 2 days ago started having shortness of breath and reports that his heart was beating fast. The patient does report that he has had a nonproductive cough with this but denies fever Related Data Allergies Allergy/AdvReac Type Severity Reaction Status Date / Time No Known Allergies Allergy Verified 05/22/25 14:22 Review of Systems 2 Review of Systems: A 10 system review of systems was completed on the patient and is negative except for what is stated in the HPI. Nursing and ancillary documentation was reviewed. [facility] Past Medical History Medical History Myelopathy History of cerebrovascular accident with current residual effects Morbid obesity Paroxysmal atrial fibrillation Atrial fibrillation with rapid ventricular response Hyperlipidemia Benign essential hypertension Type 2 diabetes mellitus without complications Social History Social History Smoking status: Never smoker Tobacco type: cigarettes Second hand tobacco smoke exposure: No Alcohol intake: never Substance use: never Substance use type: does not use Lack of Transportation: No Lack of Food: Never True Current Housing: I Have Housing Concerned About Future Housing: No Difficulty Paying Gas/Electric Bills: No Difficulty Paying for Meds: No Currently Unemployed: No Education: High School Diploma/GED Difficulty w/ Childcare or Family Care: No Living arrangements: with family Occupation/Education: occupation 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 HEAD: Normocephalic, atraumatic. EYES: PERRLA and EOMI. ENT: Nares clear, no rhinorrhea or epistaxis. Mucous membranes moist. NECK: Supple. CHEST: Clear to auscultation. No respiratory distress. HEART: Irregular tachycardic rate and rhythm. No murmur heard. Normal peripheral pulses. ABDOMEN: Soft, nontender, nondistended, normal active bowel sounds. EXTREMITIES: Normal range of motion. 1+ edema. SKIN: Warm, dry, no rash. NEURO: No focal deficits. Alert and oriented x3. PSYCH: Normal mood and affect. Course Vital Signs Vital signs: Vital Signs Temperature 36.8 C 05/22/25 14:23 Pulse Rate 160 H 05/22/25 14:23 Respiratory Rate 23 H 05/22/25 14:23 Blood Pressure 144/109 H 05/22/25 14:23 Pulse Oximetry 96 05/22/25 14:23 Oxygen Delivery Room Air 05/22/25 14:23 Temperature 36.8 C 05/22/25 14:23 Pulse Rate 82 05/22/25 15:07 Respiratory Rate 20 05/22/25 15:07 Blood Pressure 132/93 H 05/22/25 15:07 Pulse Oximetry 96 05/22/25 15:07 Oxygen Delivery Room Air 05/22/25 14:36 [facility] Differential Diagnosis Differential Diagnosis: Differential diagnosis includes pneumonia, AFib RVR, CHF, ACS, EKG showed AFib with RVR patient was given a Cardizem bolus and heart rate has come down to 101 Laboratory studies showed white count of 6.7 creatinine was 1.4 troponin was 0.081 BNP was 6370 Chest x-ray showed 1. Findings suggest multi lobar pneumonia. Findings should be followed radiographically until clear. To the patient having an elevated troponin new onset AFib patient will be admitted Lab Data [facility] Lab Attestation statement: I personally reviewed the patient's lab results. 05/22/25 14:27 05/22/25 14:27 Labs: Lab Results 05/22/25 Range/Units 14:27 WBC 6.7 (4.5-10.0) K/mm3 RBC 4.50 L (4.6-6.20) M/mm3 Hgb 12.9 L (14.0-18.0) g/dL Hct 40.7 L (42.0-52.0) % MCV 90.4 (80-100) fl MCH 28.7 (26-34) pg MCHC 31.7 L (32-36) g/dl RDW 14.7 H (11.5-14.5) % Plt Count 216 (150-375) k/mm3 MPV 11.7 H (7.4-10.4) fl Immature Gran % (Auto) 0.3 (0-0.5) % Neut % (Auto) 62.4 (45.5-73.1) % Lymph % (Auto) 26.9 (18.3-44.2) % [place] % (Auto) 8.2 (2.6-8.5) % Eos % (Auto) 1.8 (0-4.4) % Baso % (Auto) 0.4 (0.2-1.2) % Lymph # (Auto) 1.81 (0.9-3.2) K/mm3 [place] # (Auto) 0.6 (0.1-0.6) K/mm3 Eos # (Auto) 0.1 (0-0.3) K/mm3 Baso # (Auto) 0.0 (0.0-0.1) K/mm3 Abs Immat Gran (auto) 0.02 (0.00-0.031) K/mm3 Absolute Neuts (auto) 4.2 (1.3-6.7) K/mm3 Absolute Nucleated RBC 0.000 (0.0-0.012) K/mm3 Nucleated RBC % 0.0 (0.0-0.2) % PT 17.0 H (11.1-14.7) Seconds INR 1.4 APTT 30.6 (22.3-36.8) Seconds Sodium 139 (137-145) mmol/L Potassium 4.2 (3.4-5.0) mmol/L Chloride 112 H (98-107) mmol/L Carbon Dioxide 21 L (22-30) mmol/L Anion Gap 6 (4-12) mmol/L BUN 14 D (9-20) mg/dL Creatinine 1.40 H (0.7-1.3) mg/dL Estim Creat Clear Calc 61 ml/min Estimated GFR 52 L (59 - ) Glucose 125 H (65-110) mg/dL Calcium 8.8 (8.4-10.2) mg/dL Magnesium 2.2 (1.6-2.3) mg/dL Total Bilirubin 0.6 (0.2-1.3) mg/dL AST 95 H (17-59) U/L ALT 20 (6-50) U/L Alkaline Phosphatase 79 (38-126) U/L Troponin I 0.081 H* (0.000-0.034) ng/mL NT-Pro-B Natriuret Pep 6370 H (19.9-100) pg/mL Total Protein 6.8 (6.3-8.2) g/dL Albumin 3.8 (3.5-5.1) g/dL Lipase 17 L (23-300) U/L Imaging Data Radiologist's impression: ITS Impressions Chest X-Ray 05/22/25 15:25 IMPRESSION: 1. Findings suggest multi lobar pneumonia. Findings should be followed radiographically until clear. Critical Care Time Critical Care Time Critical Care Time: Yes Indication: Atrial fibrillation with rapid ventricular response Time Type: Intermittent Initial evaluation, discuss w/ involved parties, attempting to gather old records: 10 minutes Documenting medical record: 5 minutes Review of results (EKG's, labs, imaging): 5 minutes Serial repeat bedside evaluation: 10 minutes Discussing case with multiple memebers of the care team and consultants: 5 minutes Total Critical Care Time: 35 Discharge Plan Discharge Clinical Impression: Atrial fibrillation with rapid ventricular response, Elevated troponin, Pneumonia Patient Disposition: Still a Patient Condition: Stable Patient Language: Czech Prescriptions: No Action amlodipine 10 mg tablet 10 mg PO DAILY Qty: 90 1RF Eliquis 5 mg tablet 5 mg PO BID Qty: 180 1RF atorvastatin 40 mg tablet 40 mg PO DAILY Qty: 90 1RF carvedilol 3.125 mg tablet 3.125 mg PO Q12H Qty: 180 1RF Rx Instructions: must administer with a meal/food lisinopril 20 mg tablet 20 mg PO DAILY Qty: 90 1RF metformin 500 mg tablet extended release 24hr 1,000 mg PO DAILY Qty: 180 1RF pioglitazone 30 mg tablet 30 mg PO DAILY Qty: 90 1RF Follow-up/Referrals: Peterson Oneal MD [Primary Care Provider, [facility]]
[2025-05-22] MEDS: METOPROLOL TARTRATE 25 MG TABLET PO ×2 (16:30→20:23)
--- NOTE | 2025-05-22 16:33 | PM.IMHP2 ---
H&P: HPI History of Present Illness Date/Time: 05/22/25 16:33 Chief Complaint: Shortness of Breath Narrative: 59 y/o M with PMH of pAfib, myelopathy, CVA, HLD, HTN, and diabetes on oral medications presents here with shortness of breath. The patient presents here from home on 05/22 for further evaluation of shortness of breath. He reports onset of shortness of breath approximately 2-3 days ago. Shortness of breath is accompanied by a nonproductive cough, palpitation, and cold-like symptoms. He reports that his shortness of breath was precipitated by cold-like symptoms had started sometime mid last week. He reports his was also sick with cold-like symptoms. He denies weight gain, worsening peripheral edema, chest pain, fever, chills, body aches or abdominal pain. He initially denied a history of AFib, however documented previously and is currently on anticoagulation. Initial VS at presentation: 98.3? F, HR 160, R 23, 144/109, and 96% on RA. ED workup showed: No leukocytosis, hemoglobin 12.9 (at baseline), creatinine 1.4 and GFR 52 (at baseline), glucose 125, initial troponin 0.081, BNP 6370. CXR showed multilobar pneumonia. Initial EKG showed AFib RVR with a brain conduction or ventricular premature complexes, rate 145, LVH with ST-T change, nonspecific T-wave abnormality (when compared to previous sinus tachycardia no longer present). Review of Systems Review of Systems: All systems reviewed & are unremarkable except as noted in HPI and below [facility] Past Medical History Medical History Type 2 diabetes mellitus without complications Benign essential hypertension Myelopathy History of cerebrovascular accident with current residual effects Morbid obesity Paroxysmal atrial fibrillation Hyperlipidemia Social History Social History Smoking packs per day: 2 Smoking cigarettes per day: 40.0 Years smoked: 20 Smoking pack-years: 40.00 Smoking status: Former smoker Tobacco type: cigarettes Second hand tobacco smoke exposure: No Smoking end date: 05/22/05 Alcohol intake: unknown Substance use: never Substance use type: does not use Lack of Transportation: No Lack of Food: Never True Current Housing: I Have Housing Concerned About Future Housing: No Difficulty Paying Gas/Electric Bills: No Difficulty Paying for Meds: No Currently Unemployed: No Education: High School Diploma/GED Difficulty w/ Childcare or Family Care: No Living arrangements: with family Occupation/Education: occupation 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 Gender identity (if verbalized by the patient): Male Sexual Orientation (if Verbalized by the Patient): Straight or Heterosexual Spiritual care concerns: No Meds Home Medications and Allergies Home Medications ?Medication ?Instructions ?Recorded ?Confirmed ?Type amlodipine 10 mg tablet 10 mg PO DAILY #90 tabs 12/19/24 05/22/25 Rx apixaban 5 mg tablet (Eliquis) 5 mg PO BID #180 tabs 12/19/24 05/22/25 Rx atorvastatin 40 mg tablet 40 mg PO DAILY #90 tabs 12/19/24 05/22/25 Rx carvedilol 3.125 mg tablet 3.125 mg PO Q12H #180 tabs 12/19/24 05/22/25 Rx lisinopril 20 mg tablet 20 mg PO DAILY #90 tabs 12/19/24 05/22/25 Rx metformin 500 mg tablet,extended 1,000 mg (2 x 500 mg) PO DAILY 12/19/24 05/22/25 Rx release 24hr (osmotic) #180 tabs pioglitazone 30 mg tablet 30 mg PO DAILY #90 tabs 12/19/24 05/22/25 Rx Allergies Allergy/AdvReac Type Severity Reaction Status Date / Time No Known Allergies Allergy Verified 05/22/25 18:50 Vital Signs Vital Signs - 24 hr 05/22/25 14:23 05/22/25 14:36 05/22/25 14:40 Temperature 98.3 F Pulse Rate 160 H 111 H Respiratory Rate 23 H 29 H Blood Pressure 144/109 H 137/103 H Pulse Oximetry 96 97 90 Oxygen Delivery Room Air Room Air 05/22/25 15:01 05/22/25 15:07 05/22/25 15:30 Temperature Pulse Rate 98 82 95 Respiratory Rate 28 H 20 23 H Blood Pressure 132/93 H 132/93 H Pulse Oximetry 94 96 90 Oxygen Delivery 05/22/25 15:31 05/22/25 15:46 05/22/25 16:01 Temperature Pulse Rate 101 H 105 H Respiratory Rate 17 27 H Blood Pressure 122/93 H 121/100 H 159/126 H Pulse Oximetry 94 88 L Oxygen Delivery 05/22/25 16:30 Temperature Pulse Rate 97 Respiratory Rate Blood Pressure Pulse Oximetry Oxygen Delivery Exam Const: General: comfortable and no acute distress Other: , male, nontoxic appearance HENMT: Face/Nose/Sinus: Normal nares present Mouth: Yes moist mucous membranes Eyes: General: appearance normal, both eyes and all related structures Sclera: sclerae normal Pupils: Equal, round and reactive pupils present EOM: EOMs intact bilaterally Resp: Other: Crackles in mid and lower lung brownlee bilaterally. No wheezing. No respiratory distress, mild tachypnea. Cardio: Rate: tachycardic Rhythm: abnormal rhythm (Consistent with AFib) Other: S1-S2 present without murmur, rub, ectopy GI: Other: Abdomen soft, nondistended, nontender. Normoactive bowel sounds in all quadrants. Skin: General skin exam: normal color and no rashes or lesions noted Wounds: no wounds Neuro: Speech: normal speech Motor exam (neuro): 5/5 motor strength present throughout Sensory Exam: normal sensation Other: A&O x4 Extrem: Other: 1+ edema to the bilateral ankles, symmetric Psych: Mental Status: mental status grossly normal Affect: normal affect Other: Good insight and judgment, very pleasant Results Labs Labs: Short CBC 05/22/25 Range/Units 14:27 WBC 6.7 (4.5-10.0) K/mm3 Hgb 12.9 L (14.0-18.0) g/dL Hct 40.7 L (42.0-52.0) % Plt Count 216 (150-375) k/mm3 [facility] 05/22/25 14:27 Sodium 139 Potassium 4.2 Chloride 112 H Carbon Dioxide 21 L BUN 14 D Creatinine 1.40 H Glucose 125 H Calcium 8.8 Cardiac Enzymes 05/22/25 Range/Units 14:27 Troponin I 0.081 H* (0.000-0.034) ng/mL Liver Function 05/22/25 Range/Units 14:27 Total Bilirubin 0.6 (0.2-1.3) mg/dL AST 95 H (17-59) U/L ALT 20 (6-50) U/L Alkaline Phosphatase 79 (38-126) U/L Albumin 3.8 (3.5-5.1) g/dL Quality VTE Prophylaxis VTE prophylaxis: pharmacologic ordered Assessment and Plan Assessment and plan (1) Sepsis: Qualifiers: Sepsis type: sepsis due to unspecified organism Sepsis acute organ dysfunction status: without acute organ dysfunction Qualified Code(s): A41.9 - Sepsis, unspecified organism Code(s): A41.9 - Sepsis, unspecified organism Status: Acute Assessment and Plan: Patient met sepsis criteria due to heart rate and respiratory rate. No leukocytosis. CXR concerning for multilobar pneumonia. Reporting SOB/cough. Extremities well perfused and warm. No acute hypotension or hypoxia. - blood cultures obtained on 05/22, follow - check lactic and procalcitonin >> 1.2 and procal still pending - BNP elevated, will start with 1L bolus. Assess toleration, if tolerated will give second L bolus. - monitor hemodynamic stability (2) Pneumonia: Qualifiers: Laterality: bilateral Lung location: unspecified part of lung Pneumonia type: due to unspecified organism Qualified Code(s): J18.9 - Pneumonia, unspecified organism Code(s): J18.9 - Pneumonia, unspecified organism Status: Acute Assessment and Plan: CXR concerning for multilobar pneumonia. Patient endorsing shortness of breath and cough x2 days prior to evaluation. Met sepsis criteria, see above. - check viral PCR - started on ceftriaxone and azithromycin on 05/22, continued inpatient - supportive care: Tylenol p.r.n., Mucinex chery, Tessalon Perles p.r.n., incentive spirometer - sputum culture if obtainable (3) Atrial fibrillation with rapid ventricular response: Code(s): I48.91 - Unspecified atrial fibrillation Status: Acute Assessment and Plan: Patient has history of paroxysmal AFib and AFib RVR. On Coreg and Eliquis outpatient. - continue apixaban - given diltiazem 20 mg IV, initially rate controlled. Started on metoprolol 25 mg b.i.d. in the ED given he was rate controlled, however post-transfer to the floor he is now back in AFib RVR. Will try metoprolol 5 mg IVP x3, if patient fails to be rate controlled with d/c oral metoprolol and transition back to Cardizem. Hold coreg. - no previous TSH on file, ordered - no previous echo on file and BNP elevated, ordered - telemetry monitoring (4) Elevated troponin: Code(s): R79.89 - Other specified abnormal findings of blood chemistry Status: Acute Assessment and Plan: Initial troponin elevated at 0.081 > 0.073. Given 324 of ASA in the ED, continued is 81 daily. Elevation in troponin likely secondary to AFib RVR/demand ischemia as well as demand secondary to active infection (multilobar pneumonia). Denies chest pain. - nitro SL p.r.n. - EKGs reviewed, no significant ST depressions or elevations. Does have T-wave inversions. - trend troponin (5) Diabetes: Qualifiers: Diabetes mellitus complication status: without complication Diabetes mellitus assisted insulin use: without assisted use Diabetes mellitus type: type 2 Qualified Code(s): E11.9 - Type 2 diabetes mellitus without complications Code(s): E11.9 - Type 2 diabetes mellitus without complications Status: Chronic Assessment and Plan: - hypoglycemia protocol - POC blood glucose ACHS - home medication: hold metformin and pioglitazone - correct regimen ordered - high dose TIDWM, based off BMI - A1C 6.3% on 03/17/2025 (6) Hypertension: Qualifiers: Hypertension type: primary hypertension Qualified Code(s): I10 - Essential (primary) hypertension Code(s): I10 - Essential (primary) hypertension Status: Chronic Assessment and Plan: - chronic, currently 110/85 - hold home medications as his pressure has been intermittently soft. home medications include Lisinopril, Coreg, amlodipine - monitor (7) Hyperlipidemia: Qualifiers: Hyperlipidemia type: pure hypercholesterolemia Qualified Code(s): E78.00 - Pure hypercholesterolemia, unspecified Code(s): E78.5 - Hyperlipidemia, unspecified Status: Acute Assessment and Plan: - continue home medication: Atorvastatin 40 mg daily Plan Diet: Heart healthy GI Prophylaxis: N/a DVT Prophylaxis: Apixaban IV fluids: 1L bolus Lines/Tubes: pIV Code Status: Full code Prior Studies I have reviewed the following patient records and this information was taken into consideration when formulating the assessment and plan.: previous labs, previous ER visits, previous hospitalizations and previous clinic visits Time Spent with Patient Time with patient: less than 45 minutes Hospitalist MIPS Advance Care Plan I have confirmed that the patient's Advanced Care Plan is present, code status is documented, or surrogate decision maker is listed in patient medical record.: Yes Medication Reconciliation I have utilized all available resources to obtain, update and review the patients current medications (includes all prescriptions, OTC, herbals, cannabis, and nutritional supplements).: Yes
[2025-05-22] MEDS: cefTRIAXone 1 GM in SODIUM CHLORIDE 0.9% IV 50 ML 100 ML IVPB (17:07)
--- NOTE | 2025-05-22 17:32 | ECG_ITS ---
Test Date: 2025-05-22 17:38:16 Measurements Intervals [place] Rate: 112 P: 0 [place]: 0 QRS: 47 QRSD: 81 T: 180 QT: 344 QTc: 470 Interpretive Statements ATRIAL FIBRILLATION WITH RAPID VENTRICULAR RESPONSE NONSPECIFIC T-WAVE ABNORMALITY- DIFFUSE LEADS BASELINE ARTIFACT- II, III, AVL, AVF ABNORMAL ECG Compared to ECG 05/22/2025 14:48:05 HEART RATE HAS INCREASED Electronically Signed On 05-22-2025 18:54:39 BRANCH COORDINATOR by Aneudy Flor D.O.
[2025-05-22] MEDS: AZITHROMYCIN IV 500 MG in SODIUM CHLORIDE 0.9% IV 250 ML IVPB (17:33)
--- NOTE | 2025-05-22 17:56 | WPCEDHO ---
ED Hand Off Checklist All vitals saved:yes IV Site documented:yes All med administrations documented:yes Triage Note Triage Note Pt to ED co SOB that he states 05/22/25 14:34 started 2 days ago. Pt denies cp and denies palpitations, pt denies any significant cardiac hx at this time. Pt endorses nonproductive cough. Allergies No Known Allergies Allergy (Verified 05/22/25 14:22) Active Medications including assessments/comments Metoprolol Tartrate (Metoprolol Tartrate 25 Mg Tablet) 25 mg PO Q12HR NATHALY Last Admin: 05/22/25 16:30 Dose: 25 mg Documented By: GARCÍA MAR Pulse Assessment Document 05/22/25 16:30 ANT (Rec: 05/22/25 16:30 ANT [id number]) Pulse Pulse Rate (60-100) 97 Rhythm Irregular Administered/Completed Medications Discontinued Medications Aspirin (Aspirin 81 Mg Chewable Tablet) 324 mg PO ONCE STA Stop: 05/22/25 14:23 Last Admin: 05/22/25 15:13 Dose: 324 mg Documented By: TLB Diltiazem HCl (Diltiazem Hcl Inj 25 Mg/5 Ml Vial) 20 mg IV PUSH ONCE STA Stop: 05/22/25 14:35 Last Admin: 05/22/25 14:41 Dose: 20 mg Documented By: ANT Ceftriaxone Sodium 1 gm/ (Sodium Chloride) 50 mls @ 100 mls/hr IVPB ONCE STA Stop: 05/22/25 16:36 Last Infusion: 05/22/25 17:32 Dose: Infused Documented By: Admin: 05/22/25 17:07 Dose: 100 mls/hr Documented By: ANT Azithromycin 500 mg/ Sodium (Chloride) 250 mls @ 250 mls/hr IVPB ONCE STA Stop: 05/22/25 17:06 Last Admin: 05/22/25 17:33 Dose: 250 mls/hr Documented By: ANT Interventions/Assessments IV / Saline Lock, Insert Start: 05/22/25 14:22 Freq: STAT Status: Active Protocol: Document 05/22/25 14:26 RAMA (Rec: 05/22/25 14:27 KEDaja [id number]) IV Assessment Peripheral Access Right Antecubital IV Catheter Access Initiated IV Insertion Date 05/22/25 IV Insertion Time 14:27 Catheter Gauge 20 IV Insertion 1 Attempts Ultrasound Used for No Placement IV Site Assessment WNL IV Care and WNL Maintenance PA: Cardiovascular Assessment Start: 05/22/25 14:17 Freq: Status: Active Protocol: Document 05/22/25 14:36 ANT (Rec: 05/22/25 14:37 ANT [id number]) Cardiovascular Assessment Cardiovascular None Symptoms Skin Description Normal Color Jugular Vein None Distention PA: Respiratory Assessment Start: 05/22/25 14:17 Freq: Status: Active Protocol: Document 05/22/25 14:36 ANT (Rec: 05/22/25 14:37 ANT [id number]) Respiratory Assessment Symptoms None Effort Normal Oxygen Delivery Oxygen Delivery Room Air Pulse Oximetry (90- 97 100) Last Vital Signs Temperature 98.3 F 05/22/25 14:23 Pulse Rate 104 H 05/22/25 17:31 Respiratory Rate 29 H 05/22/25 17:31 Pulse Oximetry 96 05/22/25 17:31 Blood Pressure 122/103 H 05/22/25 17:31 Blood Pressure Mean 111 05/22/25 17:31 Oxygen Delivery Room Air 05/22/25 14:36 Weight 111.3 kg 05/22/25 14:34 Last Result - Abnormals Only RBC 4.50 M/mm3 (4.6-6.20) L 05/22/25 14:27 Hgb 12.9 g/dL (14.0-18.0) L 05/22/25 14:27 Hct 40.7 % (42.0-52.0) L 05/22/25 14:27 MCHC 31.7 g/dl (32-36) L 05/22/25 14:27 RDW 14.7 % (11.5-14.5) H 05/22/25 14:27 MPV 11.7 fl (7.4-10.4) H 05/22/25 14:27 PT 17.0 Seconds (11.1-14.7) H 05/22/25 14:27 Chloride 112 mmol/L (98-107) H 05/22/25 14:27 Carbon Dioxide 21 mmol/L (22-30) L 05/22/25 14:27 Creatinine 1.40 mg/dL (0.7-1.3) H 05/22/25 14:27 Estimated GFR 52 (59-) L 05/22/25 14:27 Glucose 125 mg/dL (65-110) H 05/22/25 14:27 AST 95 U/L (17-59) H 05/22/25 14:27 Troponin I 0.081 ng/mL (0.000-0.034) H* 05/22/25 14:27 NT-Pro-B Natriuret Pep 6370 pg/mL (19.9-100) H 05/22/25 14:27 Lipase 17 U/L (23-300) L 05/22/25 14:27 Most Recent Suicide Severity Rating Suicide Severity Rating NO RISK INDICATED 05/22/25 14:34
[2025-05-22 18:08] LABS: Troponin I 0.073 ng/mL (0.000-0.034)
[2025-05-22] MEDS: LACTATED RINGERS 1,000 ML 999 ML IV CONT (18:10)
--- NOTE | 2025-05-22 18:39 | ADMGEN ---
This patient, Vishal Ray Jr., was admitted to IMU Room 203-01. Patient/family oriented to hospital policies and general routines including ID bracelet, bed and alarms, visiting hours, pain management, procedures, bathroom and other care routines, personal items, smoking policy, room service/diet, and visiting hours. Information on how to activate the Rapid Response Team has been discussed. Patient/Family are encouraged to report perceived risks to care and to ask questions if they do not understand what they are told or what they should do.
[2025-05-22] MEDS: METOPROLOL TARTRATE INJ 5 MG/5 ML VIAL IV PUSH ×3 (20:07→21:50)
[2025-05-22] MEDS: guaiFENesin 12 HR 600 MG TABCR PO (20:23)
[2025-05-22 20:39] LABS: Procalcitonin 0.1 ng/mL
--- NOTE | 2025-05-22 20:45 | ECG_ITS ---
Test Date: 2025-05-22 20:55:45 Measurements Intervals [place] Rate: 120 P: 0 [place]: 0 QRS: 41 QRSD: 73 T: 173 QT: 404 QTc: 571 Interpretive Statements ATRIAL FIBRILLATION WITH RAPID VENTRICULAR RESPONSE T WAVE ABNORMALITY IN ANTEROLAT/HIGH LAT LEADS- CONSIDER ISCHEMIA BASELINE WANDER- I, AVF, V1, V3-V6 ABNORMAL ECG Compared to ECG 05/22/2025 17:38:16 T-wave abnormality now present Possible ischemia now present Electronically Signed On 05-23-2025 08:08:37 DRIVE THRU ORDER TAKER by Aneudy Flor D.O.
[2025-05-22] MEDS: IPRATROPIUM 0.5 MG/ALBUTEROL SULFATE 2.5 MG (BASE) AMPUL.NEB 3 ML INHALATION (20:47)
[2025-05-22 21:27] LABS: Troponin I 0.071 ng/mL (0.000-0.034)
[2025-05-22] MEDS: dilTIAZem 100 MG/100 ML 100 MG/100 ML BAG IV CONT (23:43)
[2025-05-23] VITALS (22 sets, daily range): BP systolic 102–145; BP diastolic 59–99; PULSE 76–159; RESP 16–30; TEMP 36.3–36.9; O2SAT 95–100
--- NOTE | 2025-05-23 | ECHO_ITS ---
Patient Info Name: Vishal Ray Age: 59 years : 1965 Gender: Male Ht: 66 in Wt: 251 lbs BSA: 2.36 m2 HR: 115 bpm BP: 124 / 96 mmHg Heart Rhythm: Atrial Fibrillation Technical Quality: Fair Exam Date: 05/23/2025 7:07 AM Patient Status: I Admit Date: 05/23/2025 Exam Type: CA echo dop color flow w con Complete two-dimensional, color flow and Doppler transthoracic echocardiogram is performed with contrast to opacify the left ventricle and to improve the deliniation of the left ventricle endocardial borders. Staff Referring Physician: René Quevedo MD Mortuary Operations Manager: Mary Dumont Attending Provider: Fuad Noyola Contrast/Agitated Saline Contrast/Ag. Saline: Definity Amount: 3.00 ml Administered By: Mary Dumont Existing IV Access: Yes IV Access Condition: patent with no signs of infiltration Summary 1. Left ventricular chamber dimension is mildly enlarged. 2. Left ventricular systolic function is normal, estimated at 30-35. 3. There is mildly increased left ventricular wall thickness. 4. The left ventricular diastolic function is abnormal. 5. Left atrial chamber dimension is mildly enlarged. 6. There is mild mitral valve regurgitation. 7. There is severe aortic valve stenosis. Mean gradient 7 mm Hg aortic valve area calculated 0.7 cm2, DVI 0.25. Given discrepancy between pressure gradients and valve area consider other modalities visualizing the aortic valve. Consider repeating echo when atrial fibrillation is better controlled. 8. There is mild aortic valve regurgitation. 9. Moderate pulmonary hypertension, estimated pulmonary arterial systolic pressure is 46 mmHg. 10. There is mild tricuspid valve regurgitation. 11. Large pleural effusion. Left Ventricle Left ventricular chamber dimension is mildly enlarged. Left ventricular systolic function is normal, estimated at 30-35. There is mildly increased left ventricular wall thickness. Left ventricular septal wall motion is normal. The left ventricular diastolic function is abnormal. Right Ventricle Right ventricular chamber dimension is normal. Right ventricular systolic function is normal. Left Atria Left atrial chamber dimension is mildly enlarged. Right Atria Right atrial chamber dimension is normal. Aortic Valve The aortic valve is not well visualized. There is severe aortic valve stenosis. Mean gradient 7 mm Hg aortic valve area calculated 0.7 cm2, DVI 0.25. Given discrepancy between pressure gradients and valve area consider other modalities visualizing the aortic valve. Consider repeating echo when atrial fibrillation is better controlled. There is mild aortic valve regurgitation. Pulmonic Valve The pulmonic valve is normal. There is no pulmonic valve stenosis. There is no pulmonic regurgitation. Mitral Valve The mitral valve has normal leaflets. There is no mitral valve stenosis. There is mild mitral valve regurgitation. Tricuspid Valve The tricuspid valve leaflets are normal. There is no significant tricuspid valve stenosis. There is mild tricuspid valve regurgitation. Moderate pulmonary hypertension, estimated pulmonary arterial systolic pressure is 46 mmHg. Pericardium/Pleural The pericardium appears normal. There is no pericardial effusion. Inferior Vena Cava Dilated inferior vena cava with <50% collapse upon inspiration consistent with elevated right atrial pressure, 15 mmHg. Aorta The aortic root size at the sinus of Valsalva is normal. The prox ascending aorta size is normal. Left Ventricular Outflow Tract Name Value Normal LVOT 2D LVOT Diameter 2.0 cm LVOT Doppler LVOT Peak Velocity 48 cm/s LVOT Peak Gradient 1 mmHg LVOT Mean Gradient 1 mmHg LVOT VTI 8 cm LVOT VTI/AV VTI Ratio 0.2 LVOT Stroke Volume 24 ml LVOT CO 2.0 l/min LVOT CI 0.9 l/min/m2 Pulmonic Valve Name Value Normal RVOT Doppler RVOT Peak Velocity 56 cm/s RVOT Peak Gradient 1 mmHg PV Doppler PV Peak Velocity 80 cm/s PV Peak Gradient 2 mmHg Mitral Valve Name Value Normal MV Regurgitation Doppler MR Peak Gradient 62 mmHg MV Diastolic Function MV E Peak Velocity 104 cm/s MV A Peak Velocity 2 cm/s MV E/A 47.8 MV Decel Time (PW) 136 ms MV Annular TDI MV E/e' (Septal) 16.7 MV E/e' (Lateral) 13.3 MV E/e' (Average) 15.0 Tricuspid Valve Name Value Normal TV Regurgitation Doppler TR Peak Velocity 278 cm/s TR Peak Gradient 19 mmHg Estimated PAP/RSVP RA Pressure 15 mmHg <=5 PA Systolic Pressure 46 mmHg <36 RV Systolic Pressure 46 mmHg <36 TV Annular TDI TV Lateral Liz s' Velocity 7.6 cm/s >=9.5 Aorta Name Value Normal Ascending Aorta Ao Root Diameter (MM) 3.4 cm Ao Root Diam Index (MM) 1.5 cm/m2 Aortic Valve Name Value Normal AV Doppler AV Peak Velocity 210 cm/s AV Peak Gradient 12 mmHg AV Mean Gradient 7 mmHg AV VTI 33 cm AV Area (Cont Eq VTI) 0.7 cm2 >=3.0 AV Area (Cont Eq Omar) 0.7 cm2 AV DI (Omar) 0.23 AV Regurgitation 2D LVOT Area 3.1 cm2 Ventricles Name Value Normal LV Dimensions 2D/MM IVS Diastolic Thickness (2D) 1.1 cm 0.6-1.0 LVID Diastole (2D) 5.6 cm 4.2-5.8 LVIW Diastolic Thickness (2D) 1.1 cm 0.6-1.0 LVID Systole (2D) 4.9 cm 2.5-4.0 LVOT Diameter 2.0 cm LV Mass (2D Cubed) 248.46 g 88.00-224.00 LV Mass Index (2D Cubed) 105 g/m2 49-115 Relative Wall Thickness (2D) 0.38 <=0.42 LV Fractional Shortening/Ejection Fraction 2D/MM LV Fractional Shortening (2D) 12 % 25-43 LV EF (2D Teichholz) 26 % LV Diastolic Volume (4C MOD) 147 ml LV EF (4C MOD) 18 % LV Diastolic Volume (2C MOD) 131 ml LV EF (2C MOD) 19 % LV Diastolic Volume (BP MOD) 141 ml 62-150 LV Diastolic Volume Index (BP MOD) 60 ml/m2 34-74 LV Systolic Volume (BP MOD) 117 ml 21-61 LV Systolic Volume Index (BP MOD) 50 ml/m2 11-31 LV EF (BP MOD) 17 % 52-72 LV Diastolic Length (4C) 8.9 cm LV Systolic Length (4C) 8.6 cm LV Stroke Volume (4C MOD) 27 ml Atria Name Value Normal LA Dimensions LA Dimension (MM) 4.0 cm 3.0-4.0 LA Volume (4C A-L) 149 ml LA Volume (BP A-L) 145 ml RA Dimensions RA Area (4C) 19.9 cm2 <=18.0 Report Signatures
[2025-05-23] MEDS: FUROSEMIDE INJ 40 MG/4 ML VIAL 20 MG IV PUSH (00:11)
[2025-05-23 04:46] LABS: Hematocrit 39.4 % (42.0-52.0); Hemoglobin 12.3 g/dL (14.0-18.0); Immature Granulocyte Percent A 0.1 % (0-0.5); Lymphocytes Absolute Auto 1.80 K/mm3 (0.9-3.2); Mean Corpuscular HGB Conc 31.2 g/dl (32-36); Mean Corpuscular Hemoglobin 28.9 pg (26-34); Mean Corpuscular Volume 92.7 fl (80-100); Nucleated Red Blood Cells Absolute Auto 0.000 K/mm3 (0.0-0.012); Nucleated Red Blood Cells Perc 0.0 % (0.0-0.2); Platelet Count Result 201 k/mm3 (150-375); Red Blood Count 4.25 M/mm3 (4.6-6.20); White Blood Count 6.9 K/mm3 (4.5-10.0)
[2025-05-23 05:06] LABS: Anion Gap 6 mmol/L (4-12); Blood Urea Nitrogen 17 mg/dL (9-20); Calcium 8.8 mg/dL (8.4-10.2); Carbon Dioxide 23 mmol/L (22-30); Chloride 110 mmol/L (98-107); Estimated CRCL calculation 57 ml/min; Estimated Glomerular Filt Rate 48; Glucose 107 mg/dL (65-110); Potassium 4.2 mmol/L (3.4-5.0); Sodium 139 mmol/L (137-145)
[2025-05-23 05:35] LABS: Thyroid Stimulating Hormone Reflex 0.853 uIU/mL (0.465-4.68)
[2025-05-23] MEDS: PERFLUTREN LIPID MICROSPHERES 1.5 ML VIAL DILUTED TO 10 ML TOTAL VOLUME IV PUSH (07:15)
--- NOTE | 2025-05-23 07:55 | PM.CNCAR ---
Assessment and Plan Assessment and plan (1) Atrial fibrillation with rapid ventricular response: Code(s): I48.91 - Unspecified atrial fibrillation Status: Acute (2) Pneumonia: Qualifiers: Laterality: bilateral Lung location: unspecified part of lung Pneumonia type: due to unspecified organism Qualified Code(s): J18.9 - Pneumonia, unspecified organism Code(s): J18.9 - Pneumonia, unspecified organism Status: Acute (3) Hypertension: Qualifiers: Hypertension type: primary hypertension Qualified Code(s): I10 - Essential (primary) hypertension Code(s): I10 - Essential (primary) hypertension Status: Chronic (4) Hyperlipidemia: Qualifiers: Hyperlipidemia type: pure hypercholesterolemia Qualified Code(s): E78.00 - Pure hypercholesterolemia, unspecified Code(s): E78.5 - Hyperlipidemia, unspecified Status: Acute Plan -AFib with RVR -pneumonia -hypertension -hyperlipidemia -history of CVA -chronic kidney disease stage IIIA -in regards to atrial fibrillation with RVR, patient presented to the hospital with shortness of breath, lower extremity edema and cough. Chest x-ray showed pneumonia. Currently on IV diltiazem drip 5 mg an hour and remains tachycardiac. Start p.o. diltiazem 60 mg q.6 hours with holding parameters. Wean off diltiazem drip. Continue Eliquis. Obtain echocardiogram to assess cardiac structure and function -in regards to pneumonia, continue antibiotics. -regards to hypertension, re-evaluate after starting diltiazem. At home he takes amlodipine 10 mg daily and carvedilol 3.125 mg b.i.d.. Lisinopril 20 mg daily -in regards to diabetes at home he is on metformin and pioglitazone. History of Present Illness History of Present Illness Consult date/time: 05/23/25 07:55 Requesting physician: Kelly Yanez APRN Consult reason: atrial fibrillation Reason For Visit: Afib with RVR, elevated troponin, pneumonia Narrative: 59-year-old patient with history of paroxysmal atrial fibrillation, hypertension, diabetes, hyperlipidemia presents to the hospital shortness of breath for 2-3 days. Associated with cold-like symptoms. Also lower extremity edema. Denies chest pain, syncope. Was found to be in AFib with RVR. He is on diltiazem drip 5 mg an hour and heart rates 120 he has. Feels better today. White cell count 6.7 Chest x-ray reviewed and denies months of reported as multilobar pneumonia. Creatinine 1.4, troponins 0.08, 0.073, 0.071 EKG reviewed as well esophageal fibrillation with RVR. Review of Systems Review of Systems: All systems reviewed & are unremarkable except as noted in HPI and below Constitutional: Comments: Tired Eyes: Comments: No discharge ENT: Comments: No nasal bleed Cardiovascular: Comments: Admits to shortness of breath and dyspnea on exertion, lower extremity edema but denies chest pain Respiratory: Comments: Dyspnea on exertion cough Gastrointestinal: Comments: Denies abdominal pain nausea vomiting Genitourinary: Comments: Denies dysuria Musculoskeletal: Comments: Denies joint swelling Integumentary/Breasts: Comments: No rash Neurologic: Comments: Denies focal deficit Psychiatric: Comments: No depression Endocrine: Comments: Denies polyuria Hematologic/Lymphatic: Comments: Denies bleeding Allergic/Immunologic: Comments: Denies hives PMFSH Past Medical History Medical History Type 2 diabetes mellitus without complications Benign essential hypertension Myelopathy History of cerebrovascular accident with current residual effects Morbid obesity Paroxysmal atrial fibrillation Hyperlipidemia Social History Social History Smoking packs per day: 2 Smoking cigarettes per day: 40.0 Years smoked: 20 Smoking pack-years: 40.00 Smoking status: Former smoker Tobacco type: cigarettes Second hand tobacco smoke exposure: No Smoking end date: 05/22/05 Alcohol intake: unknown Substance use: never Substance use type: does not use Lack of Transportation: No Lack of Food: Never True Current Housing: I Have Housing Concerned About Future Housing: No Difficulty Paying Gas/Electric Bills: No Difficulty Paying for Meds: No Currently Unemployed: No Education: High School Diploma/GED Difficulty w/ Childcare or Family Care: No Living arrangements: with family Occupation/Education: occupation 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 Gender identity (if verbalized by the patient): Male Sexual Orientation (if Verbalized by the Patient): Straight or Heterosexual Spiritual care concerns: No Meds Home Medications and Allergies Home Medications ?Medication ?Instructions ?Recorded ?Confirmed ?Type amlodipine 10 mg tablet 10 mg PO DAILY #90 tabs 12/19/24 05/22/25 Rx apixaban 5 mg tablet (Eliquis) 5 mg PO BID #180 tabs 12/19/24 05/22/25 Rx atorvastatin 40 mg tablet 40 mg PO DAILY #90 tabs 12/19/24 05/22/25 Rx carvedilol 3.125 mg tablet 3.125 mg PO Q12H #180 tabs 12/19/24 05/22/25 Rx lisinopril 20 mg tablet 20 mg PO DAILY #90 tabs 12/19/24 05/22/25 Rx metformin 500 mg tablet,extended 1,000 mg (2 x 500 mg) PO DAILY 12/19/24 05/22/25 Rx release 24hr (osmotic) #180 tabs pioglitazone 30 mg tablet 30 mg PO DAILY #90 tabs 12/19/24 05/22/25 Rx Allergies Allergy/AdvReac Type Severity Reaction Status Date / Time No Known Allergies Allergy Verified 05/22/25 18:50 Vital Signs Vital Signs - 24 hr 05/22/25 14:23 05/22/25 14:36 05/22/25 14:40 Temperature 36.8 C Pulse Rate 160 H 111 H Respiratory Rate 23 H 29 H Blood Pressure 144/109 H 137/103 H Pulse Oximetry 96 97 90 Oxygen Delivery Room Air Room Air Oxygen Flow Rate 05/22/25 15:01 05/22/25 15:07 05/22/25 15:30 Temperature Pulse Rate 98 82 95 Respiratory Rate 28 H 20 23 H Blood Pressure 132/93 H 132/93 H Pulse Oximetry 94 96 90 Oxygen Delivery Oxygen Flow Rate 05/22/25 15:31 05/22/25 15:46 05/22/25 16:01 Temperature Pulse Rate 101 H 105 H Respiratory Rate 17 27 H Blood Pressure 122/93 H 121/100 H 159/126 H Pulse Oximetry 94 88 L Oxygen Delivery Oxygen Flow Rate 05/22/25 16:16 05/22/25 16:30 05/22/25 16:32 Temperature Pulse Rate 106 H 97 97 Respiratory Rate 26 H 29 H Blood Pressure 136/103 H 131/96 H Pulse Oximetry 97 99 Oxygen Delivery Oxygen Flow Rate 05/22/25 16:45 05/22/25 16:46 05/22/25 17:00 Temperature Pulse Rate 99 105 H 106 H Respiratory Rate 26 H 16 24 H Blood Pressure 140/100 H Pulse Oximetry 100 100 Oxygen Delivery Oxygen Flow Rate 05/22/25 17:01 05/22/25 17:15 05/22/25 17:16 Temperature Pulse Rate 100 116 H 99 Respiratory Rate 15 31 H 25 H Blood Pressure 150/114 H 133/103 H Pulse Oximetry Oxygen Delivery Oxygen Flow Rate 05/22/25 17:30 05/22/25 17:31 05/22/25 20:00 Temperature 36.3 C L Pulse Rate 110 H 104 H 130 H Respiratory Rate 28 H 29 H 29 H Blood Pressure 122/103 H 98/61 L Pulse Oximetry 95 96 91 Oxygen Delivery Oxygen Flow Rate 05/22/25 20:00 05/22/25 20:00 05/22/25 20:07 Temperature Pulse Rate 133 H 173 H 170 H Respiratory Rate 30 H Blood Pressure Pulse Oximetry 95 Oxygen Delivery Nasal Cannula Oxygen Flow Rate 4 05/22/25 20:23 05/22/25 20:50 05/22/25 20:51 Temperature Pulse Rate 140 H 99 Respiratory Rate 20 Blood Pressure Pulse Oximetry 91 Oxygen Delivery Nasal Cannula Oxygen Flow Rate 2 05/22/25 20:55 05/22/25 20:58 05/22/25 21:36 Temperature Pulse Rate 94 130 H Respiratory Rate 20 Blood Pressure 120/97 H Pulse Oximetry Oxygen Delivery Oxygen Flow Rate 05/22/25 21:50 05/22/25 22:00 05/22/25 22:16 Temperature Pulse Rate 143 H 143 H Respiratory Rate Blood Pressure 110/85 Pulse Oximetry Oxygen Delivery Oxygen Flow Rate 05/22/25 23:43 05/22/25 23:46 05/23/25 00:00 Temperature 36.4 C L Pulse Rate 107 H 89 94 Respiratory Rate 24 H 28 H Blood Pressure 110/85 112/87 Pulse Oximetry 91 99 Oxygen Delivery Nasal Cannula Oxygen Flow Rate 2 05/23/25 00:00 05/23/25 01:59 05/23/25 02:00 Temperature Pulse Rate 82 97 85 Respiratory Rate Blood Pressure 102/78 Pulse Oximetry Oxygen Delivery Oxygen Flow Rate 05/23/25 03:15 05/23/25 04:00 05/23/25 04:00 Temperature Pulse Rate 107 H 76 88 Respiratory Rate 20 Blood Pressure 124/96 H Pulse Oximetry 95 Oxygen Delivery Nasal Cannula Oxygen Flow Rate 2 05/23/25 04:00 05/23/25 06:00 05/23/25 06:00 Temperature 36.3 C L Pulse Rate 90 115 H 103 H Respiratory Rate 28 H Blood Pressure 124/96 H 118/88 Pulse Oximetry 96 Oxygen Delivery Oxygen Flow Rate Exam Narrative: Comfortable not in distress Const: Other: Comfortable not in distress HENMT: Other: No epistaxis Eyes: Other: No discharge. Neck: Other: Supple Chest: Other: Symmetric lung expansion Resp: Other: Clear to auscultation Cardio: Other: AFib with RVR. Esteban a GI: Other: No distention or tenderness Skin: Other: No rash Neuro: Other: Alert oriented x3. Moving all extremities Extrem: Other: Plus one edema Psych: Other: Normal mood Results Labs and Meds 05/23/25 04:10 05/23/25 04:10 Lab results: Cardiac Enzymes 05/22/25 05/22/25 05/22/25 Range/Units 14:27 17:26 20:52 AST 95 H (17-59) U/L Troponin I 0.081 H* 0.073 H* 0.071 H* (0.000-0.034) ng/mL Coagulation 05/22/25 Range/Units 14:27 PT 17.0 H (11.1-14.7) Seconds APTT 30.6 (22.3-36.8) Seconds CBC 05/22/25 05/23/25 Range/Units 14:27 04:10 WBC 6.7 6.9 (4.5-10.0) K/mm3 RBC 4.50 L 4.25 L (4.6-6.20) M/mm3 Hgb 12.9 L 12.3 L (14.0-18.0) g/dL Hct 40.7 L 39.4 L (42.0-52.0) % Plt Count 216 201 (150-375) k/mm3 Lymph # (Auto) 1.81 1.80 (0.9-3.2) K/mm3 [place] # (Auto) 0.6 0.6 (0.1-0.6) K/mm3 Eos # (Auto) 0.1 0.0 (0-0.3) K/mm3 Baso # (Auto) 0.0 0.0 (0.0-0.1) K/mm3 Comprehensive Metabolic Panel 05/22/25 05/23/25 Range/Units 14:27 04:10 Sodium 139 139 (137-145) mmol/L Potassium 4.2 4.2 (3.4-5.0) mmol/L Chloride 112 H 110 H (98-107) mmol/L Carbon Dioxide 21 L 23 (22-30) mmol/L BUN 14 D 17 (9-20) mg/dL Creatinine 1.40 H 1.50 H (0.7-1.3) mg/dL Glucose 125 H 107 (65-110) mg/dL Calcium 8.8 8.8 (8.4-10.2) mg/dL AST 95 H (17-59) U/L ALT 20 (6-50) U/L Alkaline Phosphatase 79 (38-126) U/L Total Protein 6.8 (6.3-8.2) g/dL Albumin 3.8 (3.5-5.1) g/dL Intake and Output 05/22/25 05/22/25 05/23/25 15:59 23:59 07:59 Intake Total 50 31.4 Balance 50 31.4 Intake: IV 50 31.4 dilTIAZem 100 MG/100 ML 100 mg 31.4 In 100 ml @ 5 MG/HR 5 mls/hr IV CONT .Q20H [facility] [place] Rx#:[id number] cefTRIAXone 1 gm In Sodium 50 Chloride 0.9% IV 50 ml @ 100 mls/hr IVPB ONCE STA Rx#: [id number] Patient Weight 05/23/25 23:59 Weight 114.3 kg
--- NOTE | 2025-05-23 09:11 | IVDEFINITY ---
Prior to administration of IV Definity the patient was educated on the risks and benefits of the imaging enhancing agent including potential adverse side effects. The patient verbalized understanding. Allergies were verified. No exclusion criteria were identified and at least one of the following inclusion criteria were met: 1) physician request, 2) patient technically difficult to image (per the [place] [employer] guidelines of two or more segments not discernable within the apical view), or 3) questionable left ventricular function. ?
[2025-05-23] MEDS: guaiFENesin 12 HR 600 MG TABCR PO ×2 (09:17→20:12)
[2025-05-23] MEDS: APIXABAN 5 MG TABLET PO ×2 (09:17→20:12)
[2025-05-23] MEDS: ATORVASTATIN 40 MG TABLET PO (09:17)
[2025-05-23] MEDS: ASPIRIN 81 MG ENTERIC TABLET PO (09:17)
--- NOTE | 2025-05-23 09:35 | P.PNIM_ITS ---
Assessment and Plan Assessment and Plan (1) Sepsis: Qualifiers: Sepsis type: sepsis due to unspecified organism Sepsis acute organ dysfunction status: without acute organ dysfunction Qualified Code(s): A41.9 - Sepsis, unspecified organism Code(s): A41.9 - Sepsis, unspecified organism Status: Acute Assessment and Plan: Patient met sepsis criteria due to heart rate and respiratory rate. No leukocytosis. CXR concerning for multilobar pneumonia. Reporting SOB/cough. E xtremities well perfused and warm. No acute hypotension or hypoxia. - blood cultures obtained on 05/22, follow - check lactic and procalcitonin >> 1.2 and procal still pending - IV fluids - monitor hemodynamic stability (2) Pneumonia: Qualifiers: Laterality: bilateral Lung location: unspecified part of lung Pneumonia type: due to unspecified organism Qualified Code(s): J18.9 - Pneumonia, unspecified organism Code(s): J18.9 - Pneumonia, unspecified organism Status: Acute Assessment and Plan: CXR concerning for multilobar pneumonia. Patient endorsing shortness of breath and cough x2 days prior to evaluation. Met sepsis criteria, see above. - check viral PCR - started on ceftriaxone and azithromycin on 05/22, continued inpatient - supportive care: Tylenol p.r.n., Mucinex chery, Tessalon Perles p.r.n., incentive spirometer - sputum culture if obtainable (3) Atrial fibrillation with rapid ventricular response: Code(s): I48.91 - Unspecified atrial fibrillation Status: Acute Assessment and Plan: Patient has history of paroxysmal AFib and AFib RVR. On Coreg and Eliquis outpatient. - continue apixaban - given diltiazem 20 mg IV, initially rate controlled. Started on metoprolol 25 mg b.i.d. in the ED given he was rate controlled, however post-transfer to the floor he is now back in AFib RVR. Will try metoprolol 5 mg IVP x3, if patient fails to be rate controlled with d/c oral metoprolol and transition back to Cardizem. Hold coreg. - no previous TSH on file, ordered - no previous echo on file and BNP elevated, ordered - telemetry monitoring - now on cardizem drip - cardiology consulted (4) Elevated troponin: Code(s): R79.89 - Other specified abnormal findings of blood chemistry Status: Acute Assessment and Plan: Initial troponin elevated at 0.081 > 0.073. Given 324 of ASA in the ED, continued is 81 daily. Elevation in troponin likely secondary to AFib RVR/demand ischemia as well as demand secondary to active infection (multilobar pneumonia). Denies chest pain. - nitro SL p.r.n. - EKGs reviewed, no significant ST depressions or elevations. Does have T-wave inversions. 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 Diabetes mellitus complication status: without complication Qualified Code(s): E11.9 - Type 2 diabetes mellitus without complications Code(s): E11.9 - Type 2 diabetes mellitus without complications Status: Chronic Assessment and Plan: - hypoglycemia protocol - POC blood glucose ACHS - home medication: hold metformin and pioglitazone - correct regimen ordered - high dose TIDWM, based off BMI - A1C 6.3% on 03/17/2025 (6) Hypertension: Qualifiers: Hypertension type: primary hypertension Qualified Code(s): I10 - Essential (primary) hypertension Code(s): I10 - Essential (primary) hypertension Status: Chronic Assessment and Plan: - chronic, currently 110/85 - hold home medications as his pressure has been intermittently soft. home medi cations include Lisinopril, Coreg, amlodipine - monitor (7) Hyperlipidemia: Qualifiers: Hyperlipidemia type: pure hypercholesterolemia Qualified Code(s): E78.00 - Pure hypercholesterolemia, unspecified Code(s): E78.5 - Hyperlipidemia, unspecified Status: Acute Assessment and Plan: - continue home medication: Atorvastatin 40 mg daily Subjective Date/time seen: 05/23/25 09:35 Interval history: Patient seen for a follow up visit. Patient sitting in bed, in no acute distress. Patient reports he feels better. He is wearing oxygen by NC. HR on the monitor between 95-110 during visit. Patient denies dyspnea or chest pain. Cardiology is consulted. Patient continues on a diltiazem drip for rate control. Review of Systems Review of Systems: All systems reviewed & are unremarkable except as noted in HPI and below Exam Const: General: comfortable and no acute distress Other: , male, nontoxic appearance HENMT: Face/Nose/Sinus: Normal nares present Mouth: Yes moist mucous membranes Eyes: General: appearance normal, both eyes and all related structures Sclera: sclerae normal Pupils: Equal, round and reactive pupils present EOM: EOMs intact bilaterally Resp: Other: Crackles in mid and lower lung brownlee bilaterally. No wheezing. No respiratory distress, mild tachypnea. Cardio: Rate: tachycardic Rhythm: abnormal rhythm (Consistent with AFib) Other: S1-S2 present without murmur, rub, ectopy GI: Other: Abdomen soft, nondistended, nontender. Normoactive bowel sounds in all quadrants. Skin: General skin exam: normal color and no rashes or lesions noted Wounds: no wounds Neuro: Cranial nerves: Yes Equal, round and reactive pupils present Speech: normal speech Motor exam (neuro): 5/5 motor strength present throughout Sensory Exam: normal sensation Other: A&O x4 Extrem: Other: 1+ edema to the bilateral ankles, symmet velia Psych: Mental Status: mental status grossly normal Affect: normal affect Other: Good insight and judgment, very pleasant Objective Data Vital Signs Vital Signs: Vital Signs - 24 hr 05/22/25 14:23 05/22/25 14:36 05/22/25 14:40 Temperature 98.3 F Pulse Rate 160 H 111 H Respiratory Rate 23 H 29 H Blood Pressure 144/109 H 137/103 H Pulse Oximetry 96 97 90 Oxygen Delivery Room Air Room Air Oxygen Flow Rate 05/22/25 15:01 05/22/25 15:07 05/22/25 15:30 Temperature Pulse Rate 98 82 95 Respiratory Rate 28 H 20 23 H Blood Pressure 132/93 H 132/93 H Pulse Oximetry 94 96 90 Oxygen Delivery Oxygen Flow Rate 05/22/25 15:31 05/22/25 15:46 05/22/25 16:01 Temperature Pulse Rate 101 H 105 H Respiratory Rate 17 27 H Blood Pressure 122/93 H 121/100 H 159/126 H Pulse Oximetry 94 88 L Oxygen Delivery Oxygen Flow Rate 05/22/25 16:16 05/22/25 16:30 05/22/25 16:32 Temperature Pulse Rate 106 H 97 97 Respiratory Rate 26 H 29 H Blood Pressure 136/103 H 131/96 H Pulse Oximetry 97 99 Oxygen Delivery Oxygen Flow Rate 05/22/25 16:45 05/22/25 16:46 05/22/25 17:00 Temperature Pulse Rate 99 105 H 106 H Respiratory Rate 26 H 16 24 H Blood Pressure 140/100 H Pulse Oximetry 100 100 Oxygen Delivery Oxygen Flow Rate 05/22/25 17:01 05/22/25 17:15 05/22/25 17:16 Temperature Pulse Rate 100 116 H 99 Respiratory Rate 15 31 H 25 H Blood Pressure 150/114 H 133/103 H Pulse Oximetry Oxygen Delivery Oxygen Flow Rate 05/22/25 17:30 05/22/25 17:31 05/22/25 20:00 Temperature 97.4 F L Pulse Rate 110 H 104 H 130 H Respiratory Rate 28 H 29 H 29 H Blood Pressure 122/103 H 98/61 L Pulse Oximetry 95 96 91 Oxygen Delivery Oxygen Flow Rate 05/22/25 20:00 05/22/25 20:00 05/22/25 20:07 Temperature Pulse Rate 133 H 173 H 170 H Respiratory Rate 30 H Blood Pressure Pulse Oximetry 95 Oxygen Delivery Nasal Cannula Oxygen Flow Rate 4 05/22/25 20:23 05/22/25 20:50 05/22/25 20:51 Temperature Pulse Rate 140 H 99 Respiratory Rate 20 Blood Pressure Pulse Oximetry 91 Oxygen Delivery Nasal Cannula Oxygen Flow Rate 2 05/22/25 20:55 05/22/25 20:58 05/22/25 21:36 Temperature Pulse Rate 94 130 H Respiratory Rate 20 Blood Pressure 120/97 H Pulse Oximetry Oxygen Delivery Oxygen Flow Rate 05/22/25 21:50 05/22/25 22:00 05/22/25 22:16 Temperature Pulse Rate 143 H 143 H Respiratory Rate Blood Pressure 110/85 Pulse Oximetry Oxygen Delivery Oxygen Flow Rate 05/22/25 23:43 05/22/25 23:46 05/23/25 00:00 Temperature 97.5 F L Pulse Rate 107 H 89 94 Respiratory Rate 24 H 28 H Blood Pressure 110/85 112/87 Pulse Oximetry 91 99 Oxygen Delivery Nasal Cannula Oxygen Flow Rate 2 05/23/25 00:00 05/23/25 01:59 05/23/25 02:00 Temperature Pulse Rate 82 97 85 Respiratory Rate Blood Pressure 102/78 Pulse Oximetry Oxygen Delivery Oxygen Flow Rate 05/23/25 03:15 05/23/25 04:00 05/23/25 04:00 Temperature Pulse Rate 107 H 76 88 Respiratory Rate 20 Blood Pressure 124/96 H Pulse Oximetry 95 Oxygen Delivery Nasal Cannula Oxygen Flow Rate 2 05/23/25 04:00 05/23/25 06:00 05/23/25 06:00 Temperature 97.4 F L Pulse Rate 90 115 H 103 H Respiratory Rate 28 H Blood Pressure 124/96 H 118/88 Pulse Oximetry 96 Oxygen Delivery Oxygen Flow Rate 05/23/25 08:00 05/23/25 08:00 Temperature 98.3 F Pulse Rate 123 H 123 H Respiratory Rate 16 Blood Pressure 145/99 H 145/99 H Pulse Oximetry 96 Oxygen Delivery Oxygen Flow Rate Intake/Output Intake/Output: Intake & Output 05/20/25 05/21/25 05/22/25 05/23/25 23:59 23:59 23:59 23:59 Intake Total 50 41.4 Balance 50 41.4 Meds/Results Medications: Active Medications Generic Name Dose Route Start Last Admin Trade Name Freq PRN Reason Stop Dose Admin Acetaminophen 650 mg 05/22/25 16:11 Acetaminophen 325 Mg Tablet PO Q6H PRN Pain Rated 1-3, Fever Albuterol/Ipratropium 3 ml 05/22/25 16:11 05/22/25 20:47 Ipratropium 0.5 Mg/Albuterol Sulfate 2.5 Mg (Base) Ampul.Neb 3 Ml INHALATION 3 ml Q6HRT PRN Administration Shortness Of Breath Or Wheezing Apixaban 5 mg 05/23/25 09:00 05/23/25 09:17 Apixaban 5 Mg Tablet PO 5 mg Q12HR CHERY Administration Aspirin 81 mg 05/23/25 09:00 05/23/25 09:17 Aspirin 81 Mg Enteric Tablet PO 81 mg QAM CHERY Administration Atorvastatin Calcium 40 mg 05/23/25 09:00 05/23/25 09:17 Atorvastatin 40 Mg Tablet PO 40 mg DAILY CHERY Administration Benzonatate 100 mg 05/22/25 16:11 Benzonatate 100 Mg Capsule PO TID PRN Cough Dextrose 12.5 gm 05/22/25 16:41 Dextrose 50% 25 Gm/50 Ml Syringe IV PUSH PRN PRN Hypoglycemia Protocol Diltiazem HCl 60 mg 05/23/25 12:00 Diltiazem Hcl 60 Mg Tablet PO Q6HR CHERY Glucagon 1 mg 05/22/25 16:41 Glucagon For Inj 1 Mg Vial IM PRN PRN Hypoglycemia Protocol Glucose 15 gm 05/22/25 16:41 Glucose Oral Gel 15 Gm Of Glucse In 37.5 Gm Tube PO PRN PRN Hypoglycemia Protocol Guaifenesin 600 mg 05/22/25 21:00 05/23/25 09:17 Guaifenesin 12 Hr 600 Mg Tabcr PO 600 mg Q12HR CHERY Administration Ceftriaxone Sodium 1 gm/ 50 mls @ 100 mls/hr 05/23/25 17:00 Sodium Chloride IVPB Q24H CHERY Azithromycin 500 mg/ Sodium 250 mls @ 250 mls/hr 05/23/25 18:00 Chloride IVPB 05/26/25 18:59 Q24H CHERY Dextrose 1,000 mls @ 100 mls/hr 05/22/25 16:41 Dextrose 5% 1,000 Ml IVPB PRN PRN Hypoglycemia Protocol Diltiazem HCl 100 mg in 100 mls @ 5 mls/hr 05/22/25 22:15 05/23/25 08:00 Cardizem 100 Mg/100 Ml IV CONT 5 mg/hr .Q20H CHERY 5 mls/hr 5 MG/HR Infusion Insulin Aspart 4 - 8 units 05/22/25 17:00 05/23/25 08:10 Insulin Aspart (*Bkc) 100 Units/Ml SUB-Q Not Given TIDWM COUNTS INCLUDE 234 BEDS AT THE [facility] Protocol Nitroglycerin 0.4 mg 05/22/25 16:12 Nitroglycerin Sl 0.4 Mg Tablet SUBLINGUAL Q5M PRN Chest Pain Radiology Results: ITS Impressions Chest X-Ray 05/22/25 15:25 IMPRESSION: 1. Findings suggest multi lobar pneumonia. Findings should be followed radiographically until clear. Labs Labs: Laboratory Results - last 24 hr 05/22/25 05/22/25 05/22/25 14:27 17:26 20:19 WBC 6.7 RBC 4.50 L Hgb 12.9 L Hct 40.7 L MCV 90.4 MCH 28.7 MCHC 31.7 L RDW 14.7 H Plt Count 216 MPV 11.7 H Immature Gran % (Auto) 0.3 Neut % (Auto) 62.4 Lymph % (Auto) 26.9 Victoria % (Auto) 8.2 Eos % (Auto) 1.8 Baso % (Auto) 0.4 Lymph # (Auto) 1.81 Victoria # (Auto) 0.6 Eos # (Auto) 0.1 Baso # (Auto) 0.0 Abs Immat Gran (auto) 0.02 Absolute Neuts (auto) 4.2 Absolute Nucleated RBC 0.000 Nucleated RBC % 0.0 PT 17.0 H INR 1.4 APTT 30.6 Sodium 139 Potassium 4.2 Chloride 112 H Carbon Dioxide 21 L Anion Gap 6 BUN 14 D Creatinine 1.40 H Estim Creat Clear Calc 61 Estimated GFR 52 L Glucose 125 H POC Capillary Glucose 142 H Lactic Acid 1.2 Calcium 8.8 Magnesium 2.2 Total Bilirubin 0.6 AST 95 H ALT 20 Alkaline Phosphatase 79 Troponin I 0.081 H* 0.073 H* NT-Pro-B Natriuret Pep 6370 H Total Protein 6.8 Albumin 3.8 Lipase 17 L Procalcitonin 0.1 TSH (Reflex) 05/22/25 05/23/25 05/23/25 20:52 04:10 08:07 WBC 6.9 RBC 4.25 L Hgb 12.3 L Hct 39.4 L MCV 92.7 MCH 28.9 MCHC 31.2 L RDW 14.7 H Plt Count 201 MPV 11.9 H Immature Gran % (Auto) 0.1 Neut % (Auto) 65.0 Lymph % (Auto) 26.0 Victoria % (Auto) 8.2 Eos % (Auto) 0.3 Baso % (Auto) 0.4 Lymph # (Auto) 1.80 Victoria # (Auto) 0.6 Eos # (Auto) 0.0 Baso # (Auto) 0.0 Abs Immat Gran (auto) 0.01 Absolute Neuts (auto) 4.5 Absolute Nucleated RBC 0.000 Nucleated RBC % 0.0 PT INR APTT Sodium 139 Potassium 4.2 Chloride 110 H Carbon Dioxide 23 Anion Gap 6 BUN 17 Creatinine 1.50 H Estim Creat Clear Calc 57 Estimated GFR 48 L Glucose 107 POC Capillary Glucose 99 Lactic Acid Calcium 8.8 Magnesium Total Bilirubin AST ALT Alkaline Phosphatase Troponin I 0.071 H* NT-Pro-B Natriuret Pep Total Protein Albumin Lipase Procalcitonin TSH (Reflex) 0.853 Quality VTE Prophylaxis VTE prophylaxis: pharmacologic ordered
[2025-05-23] MEDS: FUROSEMIDE INJ 40 MG/4 ML VIAL IV PUSH (16:51)
[2025-05-23] MEDS: cefTRIAXone 1 GM in SODIUM CHLORIDE 0.9% IV 50 ML 100 ML IVPB (16:52)
[2025-05-23] MEDS: AZITHROMYCIN IV 500 MG in SODIUM CHLORIDE 0.9% IV 250 ML IVPB (17:44)
[2025-05-23] MEDS: DIGOXIN INJ 250 MCG/ML 2 ML AMP (*BKC) IV PUSH (19:07)
--- NOTE | 2025-05-23 20:16 | PC.NURSE ---
Patient put Bailey on the phone with this RN. Bailey updated on patient condition and plan of care at patient's request. All questions answered.
[2025-05-23] MEDS: METOPROLOL TARTRATE INJ 5 MG/5 ML VIAL IV PUSH (21:45)
[2025-05-24] VITALS (21 sets, daily range): BP systolic 101–147; BP diastolic 68–107; PULSE 76–147; RESP 12–24; TEMP 36.4–37.6; O2SAT 96–100
[2025-05-24] MEDS: DIGOXIN INJ 250 MCG/ML 2 ML AMP (*BKC) IV PUSH (01:32)
--- NOTE | 2025-05-24 08:02 | P.PNCA_ITS ---
Progress Note: A&P Assessment and Plan (1) Atrial fibrillation with rapid ventricular response: Code(s): I48.91 - Unspecified atrial fibrillation Status: Acute (2) Pneumonia: Qualifiers: Laterality: bilateral Lung location: unspecified part of lung Pneumonia type: due to unspecified organism Qualified Code(s): J18.9 - Pneumonia, unspecified organism Code(s): J18.9 - Pneumonia, unspecified organism Status: Acute (3) Hypertension: Qualifiers: Hypertension type: primary hypertension Qualified Code(s): I10 - Essential (primary) hypertension Code(s): I10 - Essential (primary) hypertension Status: Chronic (4) Hyperlipidemia: Qualifiers: Hyperlipidemia type: pure hypercholesterolemia Qualified Code(s): E78.00 - Pure hypercholesterolemia, unspecified Code(s): E78.5 - Hyperlipidemia, unspecified Status: Acute Plan -AFib with RVR -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 Patient presented to the hospital with shortness of breath, lower extremity edema and cough and cold-like symptoms.. Chest x-ray showed multilobar pneumonia. Echocardiogram during this admission ejection fraction 30-35% with possible mean significant underlying ao rtic stenosis. He was started on IV amiodarone drip. He remains tachycardic. Start metoprolol 25 mg q.6 hours with holding parameters. Keep NPO after midnight except for medications for possible cardioversion if remains tachycardic. Continue Eliquis. Acute-combined systolic and diastolic heart failure exacerbation, start Lasix 40 mg IV b.i.d.. Patient has large pleural effusion and peripheral edema. Obtain basic metabolic panel today. -in regards to aortic stenosis, the echo that was done during this admission of poor quality. It seems that there is significant aortic stenosis which needs to be reassessed as an outpatient home once the AFib is under control. I will follow up this patient as an outpatient. -in regards to pneumonia, continue antibiotics. -regards to hypertension, re-evaluate after starting metoprolol after achieving adequate diuresis.. At home he takes amlodipine 10 mg daily and carvedilol 3.125 mg b.i.d.. Lisinopril 20 mg daily -in regards to diabetes at home he is on metformin and pioglitazone. Pioglitazone is contraindicated in CHF patients and would not restart it as an outpatient. Subjective Date/time seen: Date of service 05/24/25 08:02 Interval history: 59-year-old patient with history of paroxysmal atrial fibrillation, hypertension, diabetes, hyperlipidemia presents to the hospital shortness of breath for 2-3 days. Associated with cold-like symptoms. Also lower extremity edema. Denies chest pain, syncope. Was found to be in AFib with RVR. He is on diltiazem drip 5 mg an hour and heart rates 120 he has. Feels better today.White cell count 6.7 Chest x-ray reviewed and denies months of reported as multilobar pneumonia.Creatinine 1.4, troponins 0.08, 0.073, 0.071.EKG reviewed as well esophageal fibrillation with RVR. Date of service 05/24/2025: Remains in AFib with RVR and tachycardic despite receiving IV amiodarone. 2 L nasal cannula. Review of Systems Review of Systems: All systems reviewed & are unremarkable except as noted in HPI and below Exam Narrative: Comfortable not in distress Const: Other: Comfortable not in distress HENMT: Other: No epistaxis Eyes: Other: No discharge. Neck: Other: Supple Chest: Other: Symmetric lung expansion Resp: Other: Clear to auscultation Cardio: Other: AFib with RVR. Esteban a GI: Other: No distention or tenderness Skin: Other: No rash Neuro: Other: Alert oriented x3. Moving all extremities Extrem: Other: Plus one edema Psych: Other: Normal mood Objective Data Vital Signs Vital Signs: Vital Signs - 24 hr 05/23/25 10:00 05/23/25 10:00 05/23/25 10:00 Temperature Pulse Rate 97 114 H 114 H Respiratory Rate Blood Pressure 124/89 124/89 Pulse Oximetry Oxygen Delivery Oxygen Flow Rate Fraction of Inspired Oxygen 05/23/25 12:00 05/23/25 12:00 05/23/25 12:00 Temperature 36.4 C Pulse Rate 103 H 159 H 103 H Respiratory Rate 20 Blood Pressure 113/86 113/86 Pulse Oximetry 97 Oxygen Delivery Oxygen Flow Rate Fraction of Inspired Oxygen 05/23/25 13:35 05/23/25 14:00 05/23/25 14:00 Temperature Pulse Rate 122 H 138 H 138 H Respiratory Rate Blood Pressure 113/86 118/96 H Pulse Oximetry Oxygen Delivery Oxygen Flow Rate Fraction of Inspired Oxygen 05/23/25 15:04 05/23/25 15:19 05/23/25 16:00 Temperature 36.9 C Pulse Rate 104 H 110 H 103 H Respiratory Rate 24 H Blood Pressure 118/59 L 110/81 Pulse Oximetry 96 Oxygen Delivery Oxygen Flow Rate Fraction of Inspired Oxygen 05/23/25 16:00 05/23/25 16:00 05/23/25 17:58 Temperature Pulse Rate 103 H 125 H 137 H Respiratory Rate Blood Pressure 110/83 Pulse Oximetry Oxygen Delivery Oxygen Flow Rate Fraction of Inspired Oxygen 05/23/25 17:58 05/23/25 19:00 05/23/25 19:02 Temperature 36.7 C Pulse Rate 135 H 136 H 136 H Respiratory Rate 30 H Blood Pressure 118/92 H 102/74 102/74 Pulse Oximetry 100 Oxygen Delivery Oxygen Flow Rate Fraction of Inspired Oxygen 05/23/25 19:53 05/23/25 20:00 05/23/25 20:00 Temperature 36.5 C Pulse Rate 104 H 133 H 133 H Respiratory Rate 20 24 H Blood Pressure 121/82 121/82 Pulse Oximetry 96 97 Oxygen Delivery Nasal Cannula Oxygen Flow Rate 3 Fraction of Inspired Oxygen 32 05/23/25 20:00 05/23/25 20:00 05/23/25 21:42 Temperature Pulse Rate 114 H 138 H Respiratory Rate Blood Pressure 133/99 H Pulse Oximetry 97 Oxygen Delivery Nasal Cannula Oxygen Flow Rate 2 Fraction of Inspired Oxygen 05/23/25 21:42 05/23/25 21:45 05/23/25 22:00 Temperature Pulse Rate 138 H 143 H 89 Respiratory Rate Blood Pressure 133/99 H Pulse Oximetry Oxygen Delivery Oxygen Flow Rate Fraction of Inspired Oxygen 05/23/25 22:00 05/23/25 22:00 05/24/25 00:00 Temperature Pulse Rate 89 89 106 H Respiratory Rate Blood Pressure 116/83 116/83 Pulse Oximetry Oxygen Delivery Oxygen Flow Rate Fraction of Inspired Oxygen 05/24/25 00:00 05/24/25 00:00 05/24/25 00:00 Temperature 36.6 C Pulse Rate 88 88 Respiratory Rate 21 H Blood Pressure 131/85 131/85 Pulse Oximetry 97 97 Oxygen Delivery Nasal Cannula Oxygen Flow Rate 2 Fraction of Inspired Oxygen 05/24/25 01:32 05/24/25 02:00 05/24/25 02:00 Temperature Pulse Rate 119 H 98 98 Respiratory Rate Blood Pressure 128/92 H Pulse Oximetry Oxygen Delivery Oxygen Flow Rate Fraction of Inspired Oxygen 05/24/25 02:00 05/24/25 04:00 05/24/25 04:00 Temperature 36.4 C L Pulse Rate 98 85 109 H Respiratory Rate 23 H Blood Pressure 128/92 H 146/107 H Pulse Oximetry 97 Oxygen Delivery Oxygen Flow Rate Fraction of Inspired Oxygen 05/24/25 04:00 05/24/25 04:00 05/24/25 06:00 Temperature Pulse Rate 109 H 110 H Respiratory Rate Blood Pressure 146/107 H Pulse Oximetry 97 Oxygen Delivery Nasal Cannula Oxygen Flow Rate 2 Fraction of Inspired Oxygen 05/24/25 06:00 05/24/25 06:00 Temperature Pulse Rate 110 H 110 H Respiratory Rate Blood Pressure 142/87 H 142/87 H Pulse Oximetry Oxygen Delivery Oxygen Flow Rate Fraction of Inspired Oxygen Intake/Output Intake/Output: Intake & Output 05/21/25 05/22/25 05/23/25 05/24/25 23:59 23:59 23:59 23:59 Intake Total 50 1544.3 643.2 Output Total 600 1000 Balance 50 944.3 -356.8 Meds/Results Medications: Active Medications Generic Name Dose Route Start Last Admin Trade Name Freq PRN Reason Stop Dose Admin Acetaminophen 650 mg 05/22/25 16:11 Acetaminophen 325 Mg Tablet PO Q6H PRN Pain Rated 1-3, Fever Albuterol/Ipratropium 3 ml 05/22/25 16:11 05/22/25 20:47 Ipratropium 0.5 Mg/Albuterol Sulfate 2.5 Mg (Base) Ampul.Neb 3 Ml INHALATION 3 ml Q6HRT PRN Administration Shortness Of Breath Or Wheezing Apixaban 5 mg 05/23/25 09:00 05/23/25 20:12 Apixaban 5 Mg Tablet PO 5 mg Q12HR NATHALY Administration Aspirin 81 mg 05/23/25 09:00 05/23/25 09:17 Aspirin 81 Mg Enteric Tablet PO 81 mg QAM NATHALY Administration Atorvastatin Calcium 40 mg 05/23/25 09:00 05/23/25 09:17 Atorvastatin 40 Mg Tablet PO 40 mg DAILY NATHALY Administration Benzonatate 100 mg 05/22/25 16:11 Benzonatate 100 Mg Capsule PO TID PRN Cough Dextrose 12.5 gm 05/22/25 16:41 Dextrose 50% 25 Gm/50 Ml Syringe IV PUSH PRN PRN Hypoglycemia Protocol Furosemide 40 mg 05/23/25 17:00 05/23/25 16:51 Furosemide Inj 40 Mg/4 Ml Vial IV PUSH 40 mg BID NATHALY Administration Glucagon 1 mg 05/22/25 16:41 Glucagon For Inj 1 Mg Vial IM PRN PRN Hypoglycemia Protocol Glucose 15 gm 05/22/25 16:41 Glucose Oral Gel 15 Gm Of Glucse In 37.5 Gm Tube PO PRN PRN Hypoglycemia Protocol Guaifenesin 600 mg 05/22/25 21:00 05/23/25 20:12 Guaifenesin 12 Hr 600 Mg Tabcr PO 600 mg Q12HR NATHALY Administration Ceftriaxone Sodium 1 gm/ 50 mls @ 100 mls/hr 05/23/25 17:00 05/23/25 17:22 Sodium Chloride IVPB Infused Q24H NATHALY Infusion Azithromycin 500 mg/ Sodium 250 mls @ 250 mls/hr 05/23/25 18:00 05/23/25 17:44 Chloride IVPB 05/26/25 18:59 250 mls/hr Q24H NATHALY Administration Dextrose 1,000 mls @ 100 mls/hr 05/22/25 16:41 Dextrose 5% 1,000 Ml IVPB PRN PRN Hypoglycemia Protocol Amiodarone HCl/Dextrose 360 mg in 200 mls @ 16.667 mls/hr 05/23/25 20:40 05/24/25 06:00 Nexterone 360 Mg/D5w 200 Ml IV CONT 0.5 mg/min .Q12H NATHALY 16.67 mls/hr 0.5 MG/MIN Infusion Insulin Aspart 4 - 8 units 05/22/25 17:00 05/23/25 16:52 Insulin Aspart (*Bkc) 100 Units/Ml SUB-Q Not Given TIDWM NATHALY Protocol Metoprolol Tartrate 5 mg 05/23/25 18:20 05/23/25 21:45 Metoprolol Tartrate Inj 5 Mg/5 Ml Vial IV PUSH 5 mg Q6HR PRN Administration Tachycardia Nitroglycerin 0.4 mg 05/22/25 16:12 Nitroglycerin Sl 0.4 Mg Tablet SUBLINGUAL Q5M PRN Chest Pain Radiology Results: ITS Impressions Chest X-Ray 05/22/25 15:25 IMPRESSION: 1. Findings suggest multi lobar pneumonia. Findings should be followed radiographically until clear. Labs Labs: Laboratory Results - last 24 hr 05/23/25 05/23/25 05/23/25 08:07 11:28 16:04 POC Capillary Glucose 99 117 H 114 H 05/23/25 05/24/25 19:59 06:54 POC Capillary Glucose 173 H 101
[2025-05-24] MEDS: ATORVASTATIN 40 MG TABLET PO (08:35)
[2025-05-24] MEDS: FUROSEMIDE INJ 40 MG/4 ML VIAL IV PUSH ×2 (08:35→17:39)
[2025-05-24] MEDS: APIXABAN 5 MG TABLET PO ×2 (08:35→20:21)
[2025-05-24] MEDS: ASPIRIN 81 MG ENTERIC TABLET PO (08:35)
[2025-05-24] MEDS: guaiFENesin 12 HR 600 MG TABCR PO ×2 (08:35→20:22)
[2025-05-24] MEDS: METOPROLOL TARTRATE 25 MG TABLET PO ×3 (08:35→20:22)
[2025-05-24 10:18] LABS: Anion Gap 7 mmol/L (4-12); Blood Urea Nitrogen 19 mg/dL (9-20); Calcium 8.7 mg/dL (8.4-10.2); Carbon Dioxide 23 mmol/L (22-30); Chloride 107 mmol/L (98-107); Estimated CRCL calculation 56 ml/min; Estimated Glomerular Filt Rate 47; Glucose 179 mg/dL (65-110); Magnesium 2.2 mg/dL (1.6-2.3); Potassium 3.8 mmol/L (3.4-5.0); Sodium 137 mmol/L (137-145)
--- NOTE | 2025-05-24 10:49 | P.PNIM_ITS ---
Assessment and Plan Assessment and Plan (1) Sepsis: Qualifiers: Sepsis acute organ dysfunction status: without acute organ dysfunction Sepsis type: sepsis due to unspecified organism Qualified Code(s): A41.9 - Sepsis, unspecified organism Code(s): A41.9 - Sepsis, unspecified organism Status: Acute Assessment and Plan: Patient met sepsis criteria due to heart rate and respiratory rate. No leukocytosis. CXR concerning for multilobar pneumonia. Reporting SOB/cough. E xtremities well perfused and warm. No acute hypotension or hypoxia. - blood cultures obtained on 05/22, follow - check lactic and procalcitonin >> 1.2 and procal still pending - s/p IV fluids - monitor hemodynamic stability (2) Pneumonia: Qualifiers: Laterality: bilateral Lung location: unspecified part of lung Pneumonia type: due to unspecified organism Qualified Code(s): J18.9 - Pneumonia, unspecified organism Code(s): J18.9 - Pneumonia, unspecified organism Status: Acute Assessment and Plan: CXR concerning for multilobar pneumonia. Patient endorsing shortness of breath and cough x2 days prior to evaluation. Met sepsis criteria, see above. - check viral PCR - started on ceftriaxone and azithromycin on 05/22, continued inpatient - supportive care: Tylenol p.r.n., Mucinex chery, Tessalon Perles p.r.n., incentive spirometer - sputum culture if obtainable (3) Atrial fibrillation with rapid ventricular response: Code(s): I48.91 - Unspecified atrial fibrillation Status: Acute Assessment and Plan: Patient has history of paroxysmal AFib and AFib RVR. On Coreg and Eliquis outpatient. - continue apixaban - given diltiazem 20 mg IV, initially rate controlled. Started on metoprolol 25 mg b.i.d. in the ED given he was rate controlled, however post-transfer to the floor he is now back in AFib RVR. Will try metoprolol 5 mg IVP x3, if patient fails to be rate controlled with d/c oral metoprolol and transition back to Cardizem. Hold coreg. - no previous TSH on file, ordered - no previous echo on file and BNP elevated, ordered - telemetry monitoring - s/p cardizem drip - cardiology consulted -s/p IV digoxin -now on amiodarone drip - ECHO with EF 30-355 -cardiology plans for cardioversion tomorrow AM if still not rate controlled -NPO after midnight (4) Elevated troponin: Code(s): R79.89 - Other specified abnormal findings of blood chemistry Status: Acute Assessment and Plan: Initial troponin elevated at 0.081 > 0.073. Given 324 of ASA in the ED, continued is 81 daily. Elevation in troponin likely secondary to AFib RVR/demand ischemia as well as demand secondary to active infection (multilobar pneumonia). Denies chest pain. - nitro SL p.r.n. - EKGs reviewed, no significant ST depressions or elevations. Does have T-wave inversions. 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 Diabetes mellitus type: type 2 Qualified Code(s): E11.9 - Type 2 diabetes mellitus without complications Code(s): E11.9 - Type 2 diabetes mellitus without complications Status: Chronic Assessment and Plan: - hypoglycemia protocol - POC blood glucose ACHS - home medication: hold metformin and pioglitazone - correct regimen ordered - high dose TIDWM, based off BMI - A1C 6.3% on 03/17/2025 (6) Hypertension: Qualifiers: Hypertension type: primary hypertension Qualified Code(s): I10 - Esse ntial (primary) hypertension Code(s): I10 - Essential (primary) hypertension Status: Chronic Assessment and Plan: - chronic, currently 110/85 - hold home medications as his pressure has been intermittently soft. home medications include Lisinopril, Coreg, amlodipine - monitor (7) Hyperlipidemia: Qualifiers: Hyperlipidemia type: pure hypercholesterolemia Qualified Code(s): E78.00 - Pure hypercholesterolemia, unspecified Code(s): E78.5 - Hyperlipidemia, unspecified Status: Acute Assessment and Plan: - continue home medication: Atorvastatin 40 mg daily Subjective Date/time seen: 05/24/25 10:49 Interval history: Patient seen for a follow up visit. Patient sitting on the side of the bed, in no acute distress. Patient denies acute pain. Patient denies dyspnea. Patient is using oxygen per NC. Cardiology is following patient. Patient remains in a-fib with RVR. Patient was given IV digoxin and changed to an amiodarone drip yesterday and HR still remain high 120-150. Per cardiology if HR's are this high patient will be cardioverted tomorrow AM. Patient continues on IV furosemide and IV antibiotics. Review of Systems Review of Systems: All systems reviewed & are unremarkable except as noted in HPI and below Exam Const: General: comfortable and no acute distress Other: , male, nontoxic appearance HENMT: Face/Nose/Sinus: Normal nares present Mouth: Yes moist mucous membranes Eyes: General: appearance normal, both eyes and all related structures Sclera: sclerae normal Pupils: Equal, round and reactive pupils present EOM: EOMs intact bilaterally Resp: Other: diminished breath sounds . No wheezing. No respiratory distress, mild tachypnea. Cardio: Rate: tachycardic Rhythm: abnormal rhythm (Consistent with AFib) Other: S1-S2 present without murmur, rub, ectopy GI: Other: Abdomen soft, nondistended, nontender. Normoactive bowel sounds in all quadrants. Skin: General skin exam: normal color and no rashes or lesions noted Wounds: no wounds Neuro: Cranial nerves: Yes Equal, round and reactive pupils present Speech: normal speech Motor exam (neuro): 5/5 motor strength present throughout Sensory Exam: normal sensation Other: A&O x4 Extrem: Other: 1+ edema to the bilateral ankles, symmet velia Psych: Mental Status: mental status grossly normal Affect: normal affect Other: Good insight and judgment, very pleasant Objective Data Vital Signs Vital Signs: Vital Signs - 24 hr 05/23/25 12:00 05/23/25 12:00 05/23/25 12:00 Temperature 97.6 F Pulse Rate 103 H 159 H 103 H Respiratory Rate 20 Blood Pressure 113/86 113/86 Pulse Oximetry 97 Oxygen Delivery Oxygen Flow Rate Fraction of Inspired Oxygen 05/23/25 13:35 05/23/25 14:00 05/23/25 14:00 Temperature Pulse Rate 122 H 138 H 138 H Respiratory Rate Blood Pressure 113/86 118/96 H Pulse Oximetry Oxygen Delivery Oxygen Flow Rate Fraction of Inspired Oxygen 05/23/25 15:04 05/23/25 15:19 05/23/25 16:00 Temperature 98.4 F Pulse Rate 104 H 110 H 103 H Respiratory Rate 24 H Blood Pressure 118/59 L 110/81 Pulse Oximetry 96 Oxygen Delivery Oxygen Flow Rate Fraction of Inspired Oxygen 05/23/25 16:00 05/23/25 16:00 05/23/25 17:58 Temperature Pulse Rate 103 H 125 H 137 H Respiratory Rate Blood Pressure 110/83 Pulse Oximetry Oxygen Delivery Oxygen Flow Rate Fraction of Inspired Oxygen 05/23/25 17:58 05/23/25 19:00 05/23/25 19:02 Temperature 98.1 F Pulse Rate 135 H 136 H 136 H Respiratory Rate 30 H Blood Pressure 118/92 H 102/74 102/74 Pulse Oximetry 100 Oxygen Delivery Oxygen Flow Rate Fraction of Inspired Oxygen 05/23/25 19:53 05/23/25 20:00 05/23/25 20:00 Temperature 97.7 F Pulse Rate 104 H 133 H 133 H Respiratory Rate 20 24 H Blood Pressure 121/82 121/82 Pulse Oximetry 96 97 Oxygen Delivery Nasal Cannula Oxygen Flow Rate 3 Fraction of Inspired Oxygen 32 05/23/25 20:00 05/23/25 20:00 05/23/25 21:42 Temperature Pulse Rate 114 H 138 H Respiratory Rate Blood Pressure 133/99 H Pulse Oximetry 97 Oxygen Delivery Nasal Cannula Oxygen Flow Rate 2 Fraction of Inspired Oxygen 05/23/25 21:42 05/23/25 21:45 05/23/25 22:00 Temperature Pulse Rate 138 H 143 H 89 Respiratory Rate Blood Pressure 133/99 H Pulse Oximetry Oxygen Delivery Oxygen Flow Rate Fraction of Inspired Oxygen 05/23/25 22:00 05/23/25 22:00 05/24/25 00:00 Temperature Pulse Rate 89 89 106 H Respiratory Rate Blood Pressure 116/83 116/83 Pulse Oximetry Oxygen Delivery Oxygen Flow Rate Fraction of Inspired Oxygen 05/24/25 00:00 05/24/25 00:00 05/24/25 00:00 Temperature 97.9 F Pulse Rate 88 88 Respiratory Rate 21 H Blood Pressure 131/85 131/85 Pulse Oximetry 97 97 Oxygen Delivery Nasal Cannula Oxygen Flow Rate 2 Fraction of Inspired Oxygen 05/24/25 01:32 05/24/25 02:00 05/24/25 02:00 Temperature Pulse Rate 119 H 98 98 Respiratory Rate Blood Pressure 128/92 H Pulse Oximetry Oxygen Delivery Oxygen Flow Rate Fraction of Inspired Oxygen 05/24/25 02:00 05/24/25 04:00 05/24/25 04:00 Temperature 97.5 F L Pulse Rate 98 85 109 H Respiratory Rate 23 H Blood Pressure 128/92 H 146/107 H Pulse Oximetry 97 Oxygen Delivery Oxygen Flow Rate Fraction of Inspired Oxygen 05/24/25 04:00 05/24/25 04:00 05/24/25 06:00 Temperature Pulse Rate 109 H 110 H Respiratory Rate Blood Pressure 146/107 H Pulse Oximetry 97 Oxygen Delivery Nasal Cannula Oxygen Flow Rate 2 Fraction of Inspired Oxygen 05/24/25 06:00 05/24/25 06:00 05/24/25 08:00 Temperature 98.5 F Pulse Rate 110 H 110 H 120 H Respiratory Rate 16 Blood Pressure 142/87 H 142/87 H 116/99 H Pulse Oximetry 97 Oxygen Delivery Oxygen Flow Rate Fraction of Inspired Oxygen 05/24/25 08:00 05/24/25 08:00 05/24/25 08:31 Temperature Pulse Rate 135 H 116 H 147 H Respiratory Rate Blood Pressure Pulse Oximetry Oxygen Delivery Oxygen Flow Rate Fraction of Inspired Oxygen 05/24/25 08:35 05/24/25 10:00 05/24/25 10:00 Temperature 97.8 F Pulse Rate 110 H 94 138 H Respiratory Rate 24 H Blood Pressure 139/99 H Pulse Oximetry 99 Oxygen Delivery Oxygen Flow Rate Fraction of Inspired Oxygen Intake/Output Intake/Output: Intake & Output 05/21/25 05/22/25 05/23/25 05/24/25 23:59 23:59 23:59 23:59 Intake Total 50 1544.3 916.5 Output Total 600 1425 Balance 50 944.3 -508.5 Meds/Results Medications: Active Medications Generic Name Dose Route Start Last Admin Trade Name Freq PRN Reason Stop Dose Admin Acetaminophen 650 mg 05/22/25 16:11 Acetaminophen 325 Mg Tablet PO Q6H PRN Pain Rated 1-3, Fever Albuterol/Ipratropium 3 ml 05/22/25 16:11 05/22/25 20:47 Ipratropium 0.5 Mg/Albuterol Sulfate 2.5 Mg (Base) Ampul.Neb 3 Ml INHALATION 3 ml Q6HRT PRN Administration Shortness Of Breath Or Wheezing Apixaban 5 mg 05/23/25 09:00 05/24/25 08:35 Apixaban 5 Mg Tablet PO 5 mg Q12HR CHERY Administration Aspirin 81 mg 05/23/25 09:00 05/24/25 08:35 Aspirin 81 Mg Enteric Tablet PO 81 mg QAM CHERY Administration Atorvastatin Calcium 40 mg 05/23/25 09:00 05/24/25 08:35 Atorvastatin 40 Mg Tablet PO 40 mg DAILY CHERY Administration Benzonatate 100 mg 05/22/25 16:11 Benzonatate 100 Mg Capsule PO TID PRN Cough Dextrose 12.5 gm 05/22/25 16:41 Dextrose 50% 25 Gm/50 Ml Syringe IV PUSH PRN PRN Hypoglycemia Protocol Furosemide 40 mg 05/23/25 17:00 05/24/25 08:35 Furosemide Inj 40 Mg/4 Ml Vial IV PUSH 40 mg BID CHERY Administration Furosemide 40 mg 05/24/25 09:00 05/24/25 08:35 Furosemide Inj 40 Mg/4 Ml Vial IV PUSH Not Given BID CHERY Glucagon 1 mg 05/22/25 16:41 Glucagon For Inj 1 Mg Vial IM PRN PRN Hypoglycemia Protocol Glucose 15 gm 05/22/25 16:41 Glucose Oral Gel 15 Gm Of Glucse In 37.5 Gm Tube PO PRN PRN Hypoglycemia Protocol Guaifenesin 600 mg 05/22/25 21:00 05/24/25 08:35 Guaifenesin 12 Hr 600 Mg Tabcr PO 600 mg Q12HR CHERY Administration Ceftriaxone Sodium 1 gm/ 50 mls @ 100 mls/hr 05/23/25 17:00 05/23/25 17:22 Sodium Chloride IVPB Infused Q24H CHERY Infusion Azithromycin 500 mg/ Sodium 250 mls @ 250 mls/hr 05/23/25 18:00 05/23/25 17:44 Chloride IVPB 05/26/25 18:59 250 mls/hr Q24H CHERY Administration Dextrose 1,000 mls @ 100 mls/hr 05/22/25 16:41 Dextrose 5% 1,000 Ml IVPB PRN PRN Hypoglycemia Protocol Amiodarone HCl/Dextrose 360 mg in 200 mls @ 16.667 mls/hr 05/23/25 20:40 05/24/25 08:31 Nexterone 360 Mg/D5w 200 Ml IV CONT 0.5 mg/min .Q12H CHERY 16.67 mls/hr 0.5 MG/MIN Administration Insulin Aspart 4 - 8 units 05/22/25 17:00 05/24/25 08:36 Insulin Aspart (*Bkc) 100 Units/Ml SUB-Q Not Given TIDWM CHERY Protocol Metoprolol Tartrate 5 mg 05/23/25 18:20 05/23/25 21:45 Metoprolol Tartrate Inj 5 Mg/5 Ml Vial IV PUSH 5 mg Q6HR PRN Administration Tachycardia Metoprolol Tartrate 25 mg 05/24/25 09:00 05/24/25 08:35 Metoprolol Tartrate 25 Mg Tablet PO 25 mg Q6H CHERY Administration Nitroglycerin 0.4 mg 05/22/25 16:12 Nitroglycerin Sl 0.4 Mg Tablet SUBLINGUAL Q5M PRN Chest Pain Radiology Results: ITS Impressions Chest X-Ray 05/22/25 15:25 IMPRESSION: 1. Findings suggest multi lobar pneumonia. Findings should be followed radiographically until clear. Labs Labs: Laboratory Results - last 24 hr 05/23/25 05/23/25 05/23/25 11:28 16:04 19:59 Sodium Potassium Chloride Carbon Dioxide Anion Gap BUN Creatinine Estim Creat Clear Calc Estimated GFR Glucose POC Capillary Glucose 117 H 114 H 173 H Calcium Magnesium 05/24/25 05/24/25 06:54 09:51 Sodium 137 Potassium 3.8 Chloride 107 Carbon Dioxide 23 Anion Gap 7 BUN 19 Creatinine 1.54 H Estim Creat Clear Calc 56 Estimated GFR 47 L Glucose 179 H POC Capillary Glucose 101 Calcium 8.7 Magnesium 2.2 Quality VTE Prophylaxis VTE prophylaxis: pharmacologic ordered
[2025-05-24] MEDS: cefTRIAXone 1 GM in SODIUM CHLORIDE 0.9% IV 50 ML 100 ML IVPB (17:40)
[2025-05-24] MEDS: AZITHROMYCIN IV 500 MG in SODIUM CHLORIDE 0.9% IV 250 ML IVPB (18:20)
[2025-05-25] VITALS (23 sets, daily range): BP systolic 106–147; BP diastolic 80–98; PULSE 56–123; RESP 16–26; TEMP 36.4–36.7; O2SAT 93–98
[2025-05-25] MEDS: METOPROLOL TARTRATE 25 MG TABLET PO ×4 (03:54→20:49)
[2025-05-25 07:57] LABS: Hematocrit 40.1 % (42.0-52.0); Hemoglobin 12.7 g/dL (14.0-18.0); Immature Granulocyte Percent A 0.2 % (0-0.5); Lymphocytes Absolute Auto 1.27 K/mm3 (0.9-3.2); Mean Corpuscular HGB Conc 31.7 g/dl (32-36); Mean Corpuscular Hemoglobin 28.8 pg (26-34); Mean Corpuscular Volume 90.9 fl (80-100); Nucleated Red Blood Cells Absolute Auto 0.000 K/mm3 (0.0-0.012); Nucleated Red Blood Cells Perc 0.0 % (0.0-0.2); Platelet Count Result 189 k/mm3 (150-375); Red Blood Count 4.41 M/mm3 (4.6-6.20); White Blood Count 5.9 K/mm3 (4.5-10.0)
[2025-05-25 08:21] LABS: Anion Gap 6 mmol/L (4-12); Blood Urea Nitrogen 15 mg/dL (9-20); Calcium 8.5 mg/dL (8.4-10.2); Carbon Dioxide 26 mmol/L (22-30); Chloride 104 mmol/L (98-107); Estimated CRCL calculation 58 ml/min; Estimated Glomerular Filt Rate 50; Glucose 124 mg/dL (65-110); Potassium 3.7 mmol/L (3.4-5.0); Sodium 136 mmol/L (137-145)
[2025-05-25] MEDS: ATORVASTATIN 40 MG TABLET PO (08:55)
[2025-05-25] MEDS: guaiFENesin 12 HR 600 MG TABCR PO ×2 (08:55→20:50)
[2025-05-25] MEDS: ASPIRIN 81 MG ENTERIC TABLET PO (08:56)
[2025-05-25] MEDS: APIXABAN 5 MG TABLET PO ×2 (08:56→20:50)
[2025-05-25] MEDS: FUROSEMIDE INJ 40 MG/4 ML VIAL IV PUSH ×2 (08:58→17:15)
[2025-05-25 10:00] LABS: Influenza A QL RT-PCR Negative (Negative); Influenza B QL RT-PCR Negative (Negative); RSV RNA, RT-PCR Negative (Negative); SARS-CoV-2 RNA PCR Negative (Negative)
--- NOTE | 2025-05-25 12:01 | P.PNCA_ITS ---
Progress Note: A&P Assessment and Plan (1) Atrial fibrillation with rapid ventricular response: Code(s): I48.91 - Unspecified atrial fibrillation Status: Acute (2) Pneumonia: Qualifiers: Laterality: bilateral Lung location: unspecified part of lung Pneumonia type: due to unspecified organism Qualified Code(s): J18.9 - Pneumonia, unspecified organism Code(s): J18.9 - Pneumonia, unspecified organism Status: Acute (3) Hypertension: Qualifiers: Hypertension type: primary hypertension Qualified Code(s): I10 - Essential (primary) hypertension Code(s): I10 - Essential (primary) hypertension Status: Chronic (4) Hyperlipidemia: Qualifiers: Hyperlipidemia type: pure hypercholesterolemia Qualified Code(s): E78.00 - Pure hypercholesterolemia, unspecified Code(s): E78.5 - Hyperlipidemia, unspecified Status: Acute Plan -AFib with RVR -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 Patient presented to the hospital with shortness of breath, lower extremity edema and cough and cold-like symptoms.. Chest x-ray showed multilobar pneumonia. Echocardiogram during this admission ejection fraction 30-35% with possible mean significant underlying ao rtic stenosis. He was started on IV amiodarone drip and heart rate has improved. Will shift to p.o. amiodarone this evening - 400mg b.i.d. for one week, followed by 200mg daily. Continue metoprolol 25 mg q.6 hours with holding parameters. Continue Eliquis. Acute-combined systolic and diastolic heart failure exacerbation, improving. Continue Lasix 40 mg IV b.i.d. for today, probably shift to p.o. tomorrow. Check BMP in a.m. -in regards to aortic stenosis, the echo that was done during this admission is of poor quality. It seems that there is significant aortic stenosis which needs to be reassessed as an outpatient home once the AFib is under control. Dr. Reynolds will follow up with this patient as an outpatient. -in regards to pneumonia, continue antibiotics. -regards to hypertension, re-evaluate after starting metoprolol after achieving adequate diuresis.. At home he takes amlodipine 10 mg daily and carvedilol 3.125 mg b.i.d.. Lisinopril 20 mg daily -in regards to diabetes at home he is on metformin and pioglitazone. Pioglitazone is contraindicated in CHF patients and would not restart it as an outpatient. Subjective Date/time seen: 05/25/25 12:01 Interval history: 59-year-old patient with history of paroxysmal atrial fibrillation, hypertens ion, diabetes, hyperlipidemia presents to the hospital shortness of breath for 2-3 days. Associated with cold-like symptoms. Also lower extremity edema. Denies chest pain, syncope. Was found to be in AFib with RVR. He is on diltiazem drip 5 mg an hour and heart rates 120 he has. Feels better today.White cell count 6.7 Chest x-ray reviewed and denies months of reported as multilobar pneumonia .Creatinine 1.4, troponins 0.08, 0.073, 0.071.EKG reviewed as well esophageal fibrillation with RVR. Date of service 05/24/2025: Remains in AFib with RVR and tachycardic despite receiving IV amiodarone. 2 L nasal cannula. Date of service 05/25/2025: Remains in atrial fibrillation but heart rate is now controlled. Does have tachycardia with minimal activity, however. Shortness of breath has improved, now on room air. Swelling nearly resolved. Review of Systems Review of Systems: All systems reviewed & are unremarkable except as noted in HPI and below Exam Narrative: Comfortable not in distress Const: General: comfortable and no acute distress HENMT: Head: normal to inspection Eyes: General: appearance normal, both eyes and all related structures Chest: Other: Symmetric lung expansion Resp: Effort & Inspection: normal respiratory effort Other: Clear to auscultation Cardio: Rate: regular rate Rhythm: abnormal rhythm irregularly irregular Heart sounds: Murmur heart sound present GI: Inspection: normal to inspection Skin: Other: No rash Neuro: Other: Alert oriented x3. Moving all extremities Extrem: Other: mild, non-pitting bilateral lower extremity edema Psych: Appearance: grossly normal Other: Normal mood Objective Data Vital Signs Vital Signs: Vital Signs - 24 hr 05/24/25 14:00 05/24/25 14:00 05/24/25 14:00 Temperature 36.6 C Pulse Rate 111 H 130 H 130 H Respiratory Rate 12 Blood Pressure 136/88 Pulse Oximetry 98 Oxygen Delivery Oxygen Flow Rate Fraction of Inspired Oxygen 05/24/25 14:28 05/24/25 16:00 05/24/25 16:00 Temperature 36.8 C Pulse Rate 104 H 88 Respiratory Rate 24 H Blood Pressure 138/83 Pulse Oximetry 98 98 Oxygen Delivery Nasal Cannula Oxygen Flow Rate 2 Fraction of Inspired Oxygen 05/24/25 16:00 05/24/25 16:00 05/24/25 18:00 Temperature Pulse Rate 83 99 108 H Respiratory Rate Blood Pressure Pulse Oximetry Oxygen Delivery Oxygen Flow Rate Fraction of Inspired Oxygen 05/24/25 18:00 05/24/25 18:00 05/24/25 19:53 Temperature 36.6 C 36.4 C L Pulse Rate 108 H 82 110 H Respiratory Rate 24 H 21 H Blood Pressure 101/68 130/93 H Pulse Oximetry 98 99 Oxygen Delivery Oxygen Flow Rate Fraction of Inspired Oxygen 05/24/25 20:00 05/24/25 20:00 05/24/25 20:00 Temperature Pulse Rate 110 H 118 H Respiratory Rate Blood Pressure 130/93 H Pulse Oximetry 99 Oxygen Delivery Nasal Cannula Oxygen Flow Rate 2 Fraction of Inspired Oxygen 05/24/25 20:22 05/24/25 20:25 05/24/25 20:25 Temperature Pulse Rate 110 H 114 H 114 H Respiratory Rate Blood Pressure 127/101 H 127/101 H Pulse Oximetry Oxygen Delivery Oxygen Flow Rate Fraction of Inspired Oxygen 05/24/25 22:00 05/24/25 22:00 05/24/25 22:00 Temperature Pulse Rate 92 91 91 Respiratory Rate Blood Pressure 120/83 120/83 Pulse Oximetry Oxygen Delivery Oxygen Flow Rate Fraction of Inspired Oxygen 05/24/25 23:31 05/24/25 23:59 05/25/25 00:00 Temperature 36.4 C L Pulse Rate 76 88 Respiratory Rate 23 H Blood Pressure 147/96 H Pulse Oximetry 96 96 Oxygen Delivery Nasal Cannula Oxygen Flow Rate 1 Fraction of Inspired Oxygen 05/25/25 00:00 05/25/25 02:00 05/25/25 02:00 Temperature Pulse Rate 88 95 95 Respiratory Rate Blood Pressure 147/96 H 140/88 140/88 Pulse Oximetry Oxygen Delivery Oxygen Flow Rate Fraction of Inspired Oxygen 05/25/25 02:00 05/25/25 03:54 05/25/25 04:00 Temperature 36.5 C Pulse Rate 95 91 97 Respiratory Rate 17 Blood Pressure 147/98 H Pulse Oximetry 97 Oxygen Delivery Oxygen Flow Rate Fraction of Inspired Oxygen 05/25/25 04:00 05/25/25 04:00 05/25/25 04:00 Temperature Pulse Rate 97 99 Respiratory Rate Blood Pressure 147/98 H Pulse Oximetry 97 Oxygen Delivery Nasal Cannula Oxygen Flow Rate 1 Fraction of Inspired Oxygen 05/25/25 06:00 05/25/25 06:00 05/25/25 06:00 Temperature Pulse Rate 99 95 95 Respiratory Rate Blood Pressure 138/95 H 138/95 H Pulse Oximetry Oxygen Delivery Oxygen Flow Rate Fraction of Inspired Oxygen 05/25/25 08:00 05/25/25 08:00 05/25/25 08:00 Temperature 36.4 C L Pulse Rate 106 H 101 H 97 Respiratory Rate 22 H Blood Pressure 130/89 130/89 Pulse Oximetry 98 Oxygen Delivery Oxygen Flow Rate Fraction of Inspired Oxygen 05/25/25 08:14 05/25/25 08:51 05/25/25 08:55 Temperature Pulse Rate 107 H 103 H Respiratory Rate 20 Blood Pressure Pulse Oximetry 98 97 Oxygen Delivery Nasal Cannula Room Air Oxygen Flow Rate 1 Fraction of Inspired Oxygen 24 21 05/25/25 08:58 05/25/25 10:00 05/25/25 10:00 Temperature Pulse Rate 101 H 94 99 Respiratory Rate Blood Pressure 130/80 143/93 H Pulse Oximetry Oxygen Delivery Oxygen Flow Rate Fraction of Inspired Oxygen Intake/Output Intake/Output: Intake & Output 05/22/25 05/23/25 05/24/25 05/25/25 23:59 23:59 23:59 23:59 Intake Total 50 1794.3 2021.0 616.5 Output Total 600 1974 2009 Balance 50 1194.3 46.0 -1393.5 Meds/Results Medications: Active Medications Generic Name Dose Route Start Last Admin Trade Name Freq PRN Reason Stop Dose Admin Acetaminophen 650 mg 05/22/25 16:11 Acetaminophen 325 Mg Tablet PO Q6H PRN Pain Rated 1-3, Fever Albuterol/Ipratropium 3 ml 05/22/25 16:11 05/22/25 20:47 Ipratropium 0.5 Mg/Albuterol Sulfate 2.5 Mg (Base) Ampul.Neb 3 Ml INHALATION 3 ml Q6HRT PRN Administration Shortness Of Breath Or Wheezing Apixaban 5 mg 05/23/25 09:00 05/25/25 08:56 Apixaban 5 Mg Tablet PO 5 mg Q12HR NATHALY Administration Aspirin 81 mg 05/23/25 09:00 05/25/25 08:56 Aspirin 81 Mg Enteric Tablet PO 81 mg QAM NATHALY Administration Atorvastatin Calcium 40 mg 05/23/25 09:00 05/25/25 08:55 Atorvastatin 40 Mg Tablet PO 40 mg DAILY NATHALY Administration Benzonatate 100 mg 05/22/25 16:11 Benzonatate 100 Mg Capsule PO TID PRN Cough Dextrose 12.5 gm 05/22/25 16:41 Dextrose 50% 25 Gm/50 Ml Syringe IV PUSH PRN PRN Hypoglycemia Protocol Furosemide 40 mg 05/24/25 09:00 05/25/25 08:58 Furosemide Inj 40 Mg/4 Ml Vial IV PUSH 40 mg BID NATHALY Administration Glucagon 1 mg 05/22/25 16:41 Glucagon For Inj 1 Mg Vial IM PRN PRN Hypoglycemia Protocol Glucose 15 gm 05/22/25 16:41 Glucose Oral Gel 15 Gm Of Glucse In 37.5 Gm Tube PO PRN PRN Hypoglycemia Protocol Guaifenesin 600 mg 05/22/25 21:00 05/25/25 08:55 Guaifenesin 12 Hr 600 Mg Tabcr PO 600 mg Q12HR NATHALY Administration Ceftriaxone Sodium 1 gm/ 50 mls @ 100 mls/hr 05/23/25 17:00 05/24/25 17:40 Sodium Chloride IVPB 100 mls/hr Q24H NATHALY Administration Azithromycin 500 mg/ Sodium 250 mls @ 250 mls/hr 05/23/25 18:00 05/24/25 18:20 Chloride IVPB 05/26/25 18:59 250 mls/hr Q24H NATHALY Administration Dextrose 1,000 mls @ 100 mls/hr 05/22/25 16:41 Dextrose 5% 1,000 Ml IVPB PRN PRN Hypoglycemia Protocol Amiodarone HCl/Dextrose 360 mg in 200 mls @ 16.667 mls/hr 05/23/25 20:40 05/25/25 08:58 Nexterone 360 Mg/D5w 200 Ml IV CONT 0.5 mg/min .Q12H NATHALY 16.67 mls/hr 0.5 MG/MIN Administration Insulin Aspart 4 - 8 units 05/22/25 17:00 05/25/25 11:47 Insulin Aspart (*Bkc) 100 Units/Ml SUB-Q Not Given TIDWM [facility] Protocol Metoprolol Tartrate 5 mg 05/23/25 18:20 05/23/25 21:45 Metoprolol Tartrate Inj 5 Mg/5 Ml Vial IV PUSH 5 mg Q6HR PRN Administration Tachycardia Metoprolol Tartrate 25 mg 05/24/25 09:00 05/25/25 08:55 Metoprolol Tartrate 25 Mg Tablet PO 25 mg Q6H NATHALY Administration Nitroglycerin 0.4 mg 05/22/25 16:12 Nitroglycerin Sl 0.4 Mg Tablet SUBLINGUAL Q5M PRN Chest Pain Radiology Results: ITS Impressions Chest X-Ray 05/22/25 15:25 IMPRESSION: 1. Findings suggest multi lobar pneumonia. Findings should be followed radiographically until clear. Labs Labs: Laboratory Results - last 24 hr 05/24/25 05/24/25 05/24/25 11:19 15:21 20:04 WBC RBC Hgb Hct MCV MCH MCHC RDW Plt Count MPV Immature Gran % (Auto) Neut % (Auto) Lymph % (Auto) [place] % (Auto) Eos % (Auto) Baso % (Auto) Lymph # (Auto) [place] # (Auto) Eos # (Auto) Baso # (Auto) Abs Immat Gran (auto) Absolute Neuts (auto) Absolute Nucleated RBC Nucleated RBC % Sodium Potassium Chloride Carbon Dioxide Anion Gap BUN Creatinine Estim Creat Clear Calc Estimated GFR Glucose POC Capillary Glucose 131 H 101 141 H Calcium Influenza A (RT-PCR) Influenza B (RT-PCR) RSV (RT-PCR) SARS-CoV-2 RNA (RT-PCR) 05/25/25 05/25/25 05/25/25 07:11 07:50 09:15 WBC 5.9 RBC 4.41 L Hgb 12.7 L Hct 40.1 L MCV 90.9 MCH 28.8 MCHC 31.7 L RDW 14.4 Plt Count 189 MPV 11.1 H Immature Gran % (Auto) 0.2 Neut % (Auto) 67.1 Lymph % (Auto) 21.5 [place] % (Auto) 8.3 Eos % (Auto) 2.4 Baso % (Auto) 0.5 Lymph # (Auto) 1.27 [place] # (Auto) 0.5 Eos # (Auto) 0.1 Baso # (Auto) 0.0 Abs Immat Gran (auto) 0.01 Absolute Neuts (auto) 4.0 Absolute Nucleated RBC 0.000 Nucleated RBC % 0.0 Sodium 136 L Potassium 3.7 Chloride 104 Carbon Dioxide 26 Anion Gap 6 BUN 15 Creatinine 1.45 H Estim Creat Clear Calc 58 Estimated GFR 50 L Glucose 124 H POC Capillary Glucose 107 H Calcium 8.5 Influenza A (RT-PCR) Negative Influenza B (RT-PCR) Negative RSV (RT-PCR) Negative SARS-CoV-2 RNA (RT-PCR) Negative 05/25/25 11:12 WBC RBC Hgb Hct MCV MCH MCHC RDW Plt Count MPV Immature Gran % (Auto) Neut % (Auto) Lymph % (Auto) [place] % (Auto) Eos % (Auto) Baso % (Auto) Lymph # (Auto) [place] # (Auto) Eos # (Auto) Baso # (Auto) Abs Immat Gran (auto) Absolute Neuts (auto) Absolute Nucleated RBC Nucleated RBC % Sodium Potassium Chloride Carbon Dioxide Anion Gap BUN Creatinine Estim Creat Clear Calc Estimated GFR Glucose POC Capillary Glucose 102 Calcium Influenza A (RT-PCR) Influenza B (RT-PCR) RSV (RT-PCR) SARS-CoV-2 RNA (RT-PCR) Quality VTE Prophylaxis VTE prophylaxis: pharmacologic ordered
--- NOTE | 2025-05-25 13:48 | P.PNIM_ITS ---
Assessment and Plan Assessment and Plan (1) Sepsis: Qualifiers: Sepsis type: sepsis due to unspecified organism Sepsis acute organ dysfunction status: without acute organ dysfunction Qualified Code(s): A41.9 - Sepsis, unspecified organism Code(s): A41.9 - Sepsis, unspecified organism Status: Acute Assessment and Plan: Patient met sepsis criteria due to heart rate and respiratory rate. No leukocytosis. CXR concerning for multilobar pneumonia. Reporting SOB/cough. E xtremities well perfused and warm. No acute hypotension or hypoxia. - blood cultures obtained on 05/22, follow - check lactic and procalcitonin >> 1.2 and procal still pending - s/p IV fluids - monitor hemodynamic stability (2) Pneumonia: Qualifiers: Laterality: bilateral Lung location: unspecified part of lung Pneumonia type: due to unspecified organism Qualified Code(s): J18.9 - Pneumonia, unspecified organism Code(s): J18.9 - Pneumonia, unspecified organism Status: Acute Assessment and Plan: CXR concerning for multilobar pneumonia. Patient endorsing shortness of breath and cough x2 days prior to evaluation. Met sepsis criteria, see above. - check viral PCR - started on ceftriaxone and azithromycin on 05/22, continued inpatient - supportive care: Tylenol p.r.n., Mucinex chery, Tessalon Perles p.r.n., incentive spirometer - sputum culture if obtainable (3) Atrial fibrillation with rapid ventricular response: Code(s): I48.91 - Unspecified atrial fibrillation Status: Acute Assessment and Plan: Patient has history of paroxysmal AFib and AFib RVR. On Coreg and Eliquis outpatient. - continue apixaban - given diltiazem 20 mg IV, initially rate controlled. Started on metoprolol 25 mg b.i.d. in the ED given he was rate controlled, however post-transfer to the floor he is now back in AFib RVR. Will try metoprolol 5 mg IVP x3, if patient fails to be rate controlled with d/c oral metoprolol and transition back to Cardizem. Hold coreg. - no previous TSH on file, ordered - no previous echo on file and BNP elevated, ordered - telemetry monitoring - s/p cardizem drip - cardiology consulted -s/p IV digoxin -now on amiodarone drip - ECHO with EF 30-355 -HR appears better controlled, plan to switch to PO amiodarone this evening -possible discharge home tomorrow if rate controlled on PO amiodarone -AM labs (4) Elevated troponin: Code(s): R79.89 - Other specified abnormal findings of blood chemistry Status: Acute Assessment and Plan: Initial troponin elevated at 0.081 > 0.073. Given 324 of ASA in the ED, continued is 81 daily. Elevation in troponin likely secondary to AFib RVR/demand ischemia as well as demand secondary to active infection (multilobar pneumonia). Denies chest pain. - nitro SL p.r.n. - EKGs reviewed, no significant ST depressions or elevations. Does have T-wave inversions. - trend troponin (5) Diabetes: Qualifiers: Diabetes mellitus type: type 2 Diabetes mellitus care home insulin use: without body former use Diabetes mellitus complication status: without complication Qualified Code(s): E11.9 - Type 2 diabetes mellitus without compli cations Code(s): E11.9 - Type 2 diabetes mellitus without complications Status: Chronic Assessment and Plan: - hypoglycemia protocol - POC blood glucose ACHS - home medication: hold metformin and pioglitazone - correct regimen ordered - high dose TIDWM, based off BMI - A1C 6.3% on 03/17/2025 (6) Hypertension: Qualifiers: Hypertension type: primary hypertension Qualified Code(s): I10 - Essential (primary) hypertension Code(s): I10 - Essential (primary) hypertension Status: Chronic Assessment and Plan: - chronic, currently 110/85 - hold home medications as his pressure has been intermittently soft. home medications include Lisinopril, Coreg, amlodipine - monitor (7) Hyperlipidemia: Qualifiers: Hyperlipidemia type: pure hypercholesterolemia Qualified Code(s): E78.00 - Pure hypercholesterolemia, unspecified Code(s): E78.5 - Hyperlipidemia, unspecified Status: Acute Assessment and Plan: - continue home medication: Atorvastatin 40 mg daily Subjective Date/time seen: 05/25/25 13:48 Interval history: patient seen for a f/u visit. Patient denies complaints. Patient is on room air now. Patients hr appears more controlled. Per cardiology will attempt to transition patient from IV amiodarone to PO amiodarone this evening. Possible discharge home tomorrow if successful. Review of Systems Review of Systems: All systems reviewed & are unremarkable except as noted in HPI and below Exam Const: General: comfortable and no acute distress Other: , male, nontoxic appearance HENMT: Face/Nose/Sinus: Normal nares present Mouth: Yes moist mucous membranes Eyes: General: appearance normal, both eyes and all related structures Sclera: sclerae normal Pupils: Equal, round and reactive pupils present EOM: EOMs intact bilaterally Resp: Other: diminished breath sounds . No wheezing. No respiratory distress, mild tachypnea. Cardio: Rate: tachycardic Rhythm: abnormal rhythm (Consistent with AFib) Other: S1-S2 present without murmur, rub, ectopy GI: Other: Abdomen soft, nondistended, nontender. Normoactive bowel sounds in all quadrants. Skin: General skin exam: normal color and no rashes or lesions noted Wounds: no wounds Neuro: Cranial nerves: Yes Equal, round and reactive pupils present Speech: normal speech Motor exam (neuro): 5/5 motor strength present throughout Sensory Exam: normal sensation Other: A&O x4 Extrem: Other: 1+ edema to the bilateral ankles, symmet velia Psych: Mental Status: mental status grossly normal Affect: normal affect Other: Good insight and judgment, very pleasant Objective Data Vital Signs Vital Signs: Vital Signs - 24 hr 05/24/25 14:00 05/24/25 14:00 05/24/25 14:00 Temperature 97.8 F Pulse Rate 111 H 130 H 130 H Respiratory Rate 12 Blood Pressure 136/88 Pulse Oximetry 98 Oxygen Delivery Oxygen Flow Rate Fraction of Inspired Oxygen 05/24/25 14:28 05/24/25 16:00 05/24/25 16:00 Temperature 98.3 F Pulse Rate 104 H 88 Respiratory Rate 24 H Blood Pressure 138/83 Pulse Oximetry 98 98 Oxygen Delivery Nasal Cannula Oxygen Flow Rate 2 Fraction of Inspired Oxygen 05/24/25 16:00 05/24/25 16:00 05/24/25 18:00 Temperature Pulse Rate 83 99 108 H Respiratory Rate Blood Pressure Pulse Oximetry Oxygen Delivery Oxygen Flow Rate Fraction of Inspired Oxygen 05/24/25 18:00 05/24/25 18:00 05/24/25 19:53 Temperature 97.8 F 97.5 F L Pulse Rate 108 H 82 110 H Respiratory Rate 24 H 21 H Blood Pressure 101/68 130/93 H Pulse Oximetry 98 99 Oxygen Delivery Oxygen Flow Rate Fraction of Inspired Oxygen 05/24/25 20:00 05/24/25 20:00 05/24/25 20:00 Temperature Pulse Rate 110 H 118 H Respiratory Rate Blood Pressure 130/93 H Pulse Oximetry 99 Oxygen Delivery Nasal Cannula Oxygen Flow Rate 2 Fraction of Inspired Oxygen 05/24/25 20:22 05/24/25 20:25 05/24/25 20:25 Temperature Pulse Rate 110 H 114 H 114 H Respiratory Rate Blood Pressure 127/101 H 127/101 H Pulse Oximetry Oxygen Delivery Oxygen Flow Rate Fraction of Inspired Oxygen 05/24/25 22:00 05/24/25 22:00 05/24/25 22:00 Temperature Pulse Rate 92 91 91 Respiratory Rate Blood Pressure 120/83 120/83 Pulse Oximetry Oxygen Delivery Oxygen Flow Rate Fraction of Inspired Oxygen 05/24/25 23:31 05/24/25 23:59 05/25/25 00:00 Temperature 97.5 F L Pulse Rate 76 88 Respiratory Rate 23 H Blood Pressure 147/96 H Pulse Oximetry 96 96 Oxygen Delivery Nasal Cannula Oxygen Flow Rate 1 Fraction of Inspired Oxygen 05/25/25 00:00 05/25/25 02:00 05/25/25 02:00 Temperature Pulse Rate 88 95 95 Respiratory Rate Blood Pressure 147/96 H 140/88 140/88 Pulse Oximetry Oxygen Delivery Oxygen Flow Rate Fraction of Inspired Oxygen 05/25/25 02:00 05/25/25 03:54 05/25/25 04:00 Temperature 97.7 F Pulse Rate 95 91 97 Respiratory Rate 17 Blood Pressure 147/98 H Pulse Oximetry 97 Oxygen Delivery Oxygen Flow Rate Fraction of Inspired Oxygen 05/25/25 04:00 05/25/25 04:00 05/25/25 04:00 Temperature Pulse Rate 97 99 Respiratory Rate Blood Pressure 147/98 H Pulse Oximetry 97 Oxygen Delivery Nasal Cannula Oxygen Flow Rate 1 Fraction of Inspired Oxygen 05/25/25 06:00 05/25/25 06:00 05/25/25 06:00 Temperature Pulse Rate 99 95 95 Respiratory Rate Blood Pressure 138/95 H 138/95 H Pulse Oximetry Oxygen Delivery Oxygen Flow Rate Fraction of Inspired Oxygen 05/25/25 08:00 05/25/25 08:00 05/25/25 08:00 Temperature 97.5 F L Pulse Rate 106 H 101 H 97 Respiratory Rate 22 H Blood Pressure 130/89 130/89 Pulse Oximetry 98 Oxygen Delivery Oxygen Flow Rate Fraction of Inspired Oxygen 05/25/25 08:14 05/25/25 08:51 05/25/25 08:55 Temperature Pulse Rate 107 H 103 H Respiratory Rate 20 Blood Pressure Pulse Oximetry 98 97 Oxygen Delivery Nasal Cannula Room Air Oxygen Flow Rate 1 Fraction of Inspired Oxygen 05/25/25 08:58 05/25/25 10:00 05/25/25 10:00 Temperature Pulse Rate 101 H 94 99 Respiratory Rate Blood Pressure 130/80 143/93 H Pulse Oximetry Oxygen Delivery Oxygen Flow Rate Fraction of Inspired Oxygen 05/25/25 10:00 05/25/25 12:00 05/25/25 12:00 Temperature Pulse Rate 94 90 83 Respiratory Rate Blood Pressure 143/93 H 130/83 Pulse Oximetry Oxygen Delivery Oxygen Flow Rate Fraction of Inspired Oxygen 05/25/25 12:00 Temperature 97.9 F Pulse Rate 90 Respiratory Rate 16 Blood Pressure 130/83 Pulse Oximetry 96 Oxygen Delivery Oxygen Flow Rate Fraction of Inspired Oxygen Intake/Output Intake/Output: Intake & Output 05/22/25 05/23/25 05/24/25 05/25/25 23:59 23:59 23:59 23:59 Intake Total 50 1794.3 2021.0 667.0 Output Total 600 1975 4885 Balance 50 1194.3 46.0 -4218.0 Meds/Results Medications: Active Medications Generic Name Dose Route Start Last Admin Trade Name Freq PRN Reason Stop Dose Admin Acetaminophen 650 mg 05/22/25 16:11 Acetaminophen 325 Mg Tablet PO Q6H PRN Pain Rated 1-3, Fever Albuterol/Ipratropium 3 ml 05/22/25 16:11 05/22/25 20:47 Ipratropium 0.5 Mg/Albuterol Sulfate 2.5 Mg (Base) Ampul.Neb 3 Ml INHALATION 3 ml Q6HRT PRN Administration Shortness Of Breath Or Wheezing Amiodarone HCl 400 mg 05/25/25 21:00 Amiodarone Hcl 200 Mg Tablet PO Q12HR CHERY Apixaban 5 mg 05/23/25 09:00 05/25/25 08:56 Apixaban 5 Mg Tablet PO 5 mg Q12HR CHERY Administration Aspirin 81 mg 05/23/25 09:00 05/25/25 08:56 Aspirin 81 Mg Enteric Tablet PO 81 mg QAM CHERY Administration Atorvastatin Calcium 40 mg 05/23/25 09:00 05/25/25 08:55 Atorvastatin 40 Mg Tablet PO 40 mg DAILY CHERY Administration Benzonatate 100 mg 05/22/25 16:11 Benzonatate 100 Mg Capsule PO TID PRN Cough Dextrose 12.5 gm 05/22/25 16:41 Dextrose 50% 25 Gm/50 Ml Syringe IV PUSH PRN PRN Hypoglycemia Protocol Furosemide 40 mg 05/24/25 09:00 05/25/25 08:58 Furosemide Inj 40 Mg/4 Ml Vial IV PUSH 40 mg BID CHERY Administration Glucagon 1 mg 05/22/25 16:41 Glucagon For Inj 1 Mg Vial IM PRN PRN Hypoglycemia Protocol Glucose 15 gm 05/22/25 16:41 Glucose Oral Gel 15 Gm Of Glucse In 37.5 Gm Tube PO PRN PRN Hypoglycemia Protocol Guaifenesin 600 mg 05/22/25 21:00 05/25/25 08:55 Guaifenesin 12 Hr 600 Mg Tabcr PO 600 mg Q12HR CHERY Administration Ceftriaxone Sodium 1 gm/ 50 mls @ 100 mls/hr 05/23/25 17:00 05/24/25 17:40 Sodium Chloride IVPB 100 mls/hr Q24H CHERY Administration Azithromycin 500 mg/ Sodium 250 mls @ 250 mls/hr 05/23/25 18:00 05/24/25 18:20 Chloride IVPB 05/26/25 18:59 250 mls/hr Q24H CHERY Administration Dextrose 1,000 mls @ 100 mls/hr 05/22/25 16:41 Dextrose 5% 1,000 Ml IVPB PRN PRN Hypoglycemia Protocol Amiodarone HCl/Dextrose 360 mg in 200 mls @ 16.667 mls/hr 05/23/25 20:40 05/25/25 12:00 Nexterone 360 Mg/D5w 200 Ml IV CONT 05/25/25 21:00 0.5 mg/min .Q12H CHERY 16.67 mls/hr 0.5 MG/MIN Infusion Insulin Aspart 4 - 8 units 05/22/25 17:00 05/25/25 11:47 Insulin Aspart (*Bkc) 100 Units/Ml SUB-Q Not Given TIDWM CHERY Protocol Metoprolol Tartrate 5 mg 05/23/25 18:20 05/23/25 21:45 Metoprolol Tartrate Inj 5 Mg/5 Ml Vial IV PUSH 5 mg Q6HR PRN Administration Tachycardia Metoprolol Tartrate 25 mg 05/24/25 09:00 05/25/25 08:55 Metoprolol Tartrate 25 Mg Tablet PO 25 mg Q6H CHERY Administration Nitroglycerin 0.4 mg 05/22/25 16:12 Nitroglycerin Sl 0.4 Mg Tablet SUBLINGUAL Q5M PRN Chest Pain Radiology Results: ITS Impressions Chest X-Ray 05/22/25 15:25 IMPRESSION: 1. Findings suggest multi lobar pneumonia. Findings should be followed radiographically until clear. Labs Labs: Laboratory Results - last 24 hr 05/24/25 05/24/25 05/25/25 15:21 20:04 07:11 WBC RBC Hgb Hct MCV MCH MCHC RDW Plt Count MPV Immature Gran % (Auto) Neut % (Auto) Lymph % (Auto) Major % (Auto) Eos % (Auto) Baso % (Auto) Lymph # (Auto) Major # (Auto) Eos # (Auto) Baso # (Auto) Abs Immat Gran (auto) Absolute Neuts (auto) Absolute Nucleated RBC Nucleated RBC % Sodium Potassium Chloride Carbon Dioxide Anion Gap BUN Creatinine Estim Creat Clear Calc Estimated GFR Glucose POC Capillary Glucose 101 141 H 107 H Calcium Influenza A (RT-PCR) Influenza B (RT-PCR) RSV (RT-PCR) SARS-CoV-2 RNA (RT-PCR) 05/25/25 05/25/25 05/25/25 07:50 09:15 11:12 WBC 5.9 RBC 4.41 L Hgb 12.7 L Hct 40.1 L MCV 90.9 MCH 28.8 MCHC 31.7 L RDW 14.4 Plt Count 189 MPV 11.1 H Immature Gran % (Auto) 0.2 Neut % (Auto) 67.1 Lymph % (Auto) 21.5 Major % (Auto) 8.3 Eos % (Auto) 2.4 Baso % (Auto) 0.5 Lymph # (Auto) 1.27 Major # (Auto) 0.5 Eos # (Auto) 0.1 Baso # (Auto) 0.0 Abs Immat Gran (auto) 0.01 Absolute Neuts (auto) 4.0 Absolute Nucleated RBC 0.000 Nucleated RBC % 0.0 Sodium 136 L Potassium 3.7 Chloride 104 Carbon Dioxide 26 Anion Gap 6 BUN 15 Creatinine 1.45 H Estim Creat Clear Calc 58 Estimated GFR 50 L Glucose 124 H POC Capillary Glucose 102 Calcium 8.5 Influenza A (RT-PCR) Negative Influenza B (RT-PCR) Negative RSV (RT-PCR) Negative SARS-CoV-2 RNA (RT-PCR) Negative Quality VTE Prophylaxis VTE prophylaxis: pharmacologic ordered
[2025-05-25] MEDS: AZITHROMYCIN IV 500 MG in SODIUM CHLORIDE 0.9% IV 250 ML IVPB (17:13)
[2025-05-25] MEDS: cefTRIAXone 1 GM in SODIUM CHLORIDE 0.9% IV 50 ML 100 ML IVPB (17:14)
[2025-05-25] MEDS: AMIODARONE HCL 200 MG TABLET 400 MG PO (17:50)
[2025-05-26] VITALS (21 sets, daily range): BP systolic 112–145; BP diastolic 73–100; PULSE 87–123; RESP 16–20; TEMP 36.3–36.8; O2SAT 96–99
[2025-05-26] MEDS: METOPROLOL TARTRATE 25 MG TABLET PO ×4 (01:37→20:06)
[2025-05-26 04:41] LABS: Hematocrit 39.9 % (42.0-52.0); Hemoglobin 12.6 g/dL (14.0-18.0); Immature Granulocyte Percent A 0.5 % (0-0.5); Lymphocytes Absolute Auto 1.60 K/mm3 (0.9-3.2); Mean Corpuscular HGB Conc 31.6 g/dl (32-36); Mean Corpuscular Hemoglobin 28.2 pg (26-34); Mean Corpuscular Volume 89.3 fl (80-100); Nucleated Red Blood Cells Absolute Auto 0.000 K/mm3 (0.0-0.012); Nucleated Red Blood Cells Perc 0.0 % (0.0-0.2); Platelet Count Result 198 k/mm3 (150-375); Red Blood Count 4.47 M/mm3 (4.6-6.20); White Blood Count 6.1 K/mm3 (4.5-10.0)
[2025-05-26 04:59] LABS: Alanine Aminotransferase 14 U/L (6-50); Albumin Level 3.4 g/dL (3.5-5.1); Alkaline Phosphatase 74 U/L (38-126); Anion Gap 5 mmol/L (4-12); Aspartate Amino Transferase 64 U/L (17-59); Bilirubin,Total 0.8 mg/dL (0.2-1.3); Blood Urea Nitrogen 14 mg/dL (9-20); Calcium 8.7 mg/dL (8.4-10.2); Carbon Dioxide 27 mmol/L (22-30); Chloride 105 mmol/L (98-107); Estimated CRCL calculation 60 ml/min; Estimated Glomerular Filt Rate 52; Glucose 99 mg/dL (65-110); Magnesium 2.1 mg/dL (1.6-2.3); Potassium 3.5 mmol/L (3.4-5.0); Sodium 137 mmol/L (137-145); Total Protein 6.5 g/dL (6.3-8.2)
[2025-05-26] MEDS: ASPIRIN 81 MG ENTERIC TABLET PO (07:32)
[2025-05-26] MEDS: AMIODARONE HCL 200 MG TABLET 400 MG PO ×2 (07:32→20:06)
[2025-05-26] MEDS: guaiFENesin 12 HR 600 MG TABCR PO ×2 (07:32→20:06)
[2025-05-26] MEDS: APIXABAN 5 MG TABLET PO ×2 (07:33→20:06)
[2025-05-26] MEDS: ATORVASTATIN 40 MG TABLET PO (07:33)
[2025-05-26] MEDS: FUROSEMIDE INJ 40 MG/4 ML VIAL IV PUSH (07:33)
--- NOTE | 2025-05-26 10:15 | P.PNCA_ITS ---
Progress Note: A&P Assessment and Plan (1) Atrial fibrillation with rapid ventricular response: Code(s): I48.91 - Unspecified atrial fibrillation Status: Acute (2) Pneumonia: Qualifiers: Laterality: bilateral Lung location: unspecified part of lung Pneumonia type: due to unspecified organism Qualified Code(s): J18.9 - Pneumonia, unspecified organism Code(s): J18.9 - Pneumonia, unspecified organism Status: Acute (3) Hypertension: Qualifiers: Hypertension type: primary hypertension Qualified Code(s): I10 - Essential (primary) hypertension Code(s): I10 - Essential (primary) hypertension Status: Chronic (4) Hyperlipidemia: Qualifiers: Hyperlipidemia type: pure hypercholesterolemia Qualified Code(s): E78.00 - Pure hypercholesterolemia, unspecified Code(s): E78.5 - Hyperlipidemia, unspecified Status: Acute Plan -AFib with RVR -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 Patient presented to the hospital with shortness of breath, lower extremity edema and cough and cold-like symptoms.. Chest x-ray showed multilobar pneumonia. Echocardiogram during this admission ejection fraction 30-35% with possible mean significant underlying ao rtic stenosis. He was started on IV amiodarone drip and heart rate improved. Shifted to p.o. amiodarone last evening - 400mg b.i.d. for one week, followed by 200mg daily. He is not intermittently tachycardic. Will kep NPO after midnight and plan for DCCV tomorrow with anesthesia. Continue metoprolol 25 mg q.6 hours with holding parameters. Continue Eliquis. Acute-combined systolic and diastolic heart failure exacerbation, improving. Looks euvolemic at this point. Will shift to p.o. lasix today -in regards to aortic stenosis, the echo that was done during this admission is of poor quality. It seems that there is significant aortic stenosis which needs to be reassessed as an outpatient home once the AFib is under control. Dr. Reynolds will follow up with this patient as an outpatient. -in regards to pneumonia, continue antibiotics. -regards to hypertension, re-evaluate after starting metoprolol after achieving adequate diuresis.. At home he takes amlodipine 10 mg daily and carvedilol 3.125 mg b.i.d.. Lisinopril 20 mg daily -in regards to diabetes at home he is on metformin and pioglitazone. Pioglitazone is contraindicated in CHF patients and would not restart it as an o utpatient. Subjective Date/time seen: 05/26/25 10:15 Interval history: 59-year-old patient with history of paroxysmal atrial fibrillation, hypertension, diabetes, hyperlipidemia presents to the hospital shortness of breath for 2-3 days. Associated with cold-like symptoms. Also lower extremity edema. Denies chest pain, syncope. Was found to be in AFib with RVR. He is on diltiazem drip 5 mg an hour and heart rates 120 he has. Feels better today.White cell count 6.7 Chest x-ray reviewed and denies months of reported as multilobar pneumonia.Creatinine 1.4, troponins 0.08, 0.073, 0.071.EKG reviewed as well esophageal fibrillation with RVR. Date of service 05/24/2025: Remains in AFib with RVR and tachycardic despite receiving IV amiodarone. 2 L nasal cannula. Date of service 05/25/2025: Remains in atrial fibrillation but heart rate is now controlled. Does have tachycardia with minimal activity, however. Shortness of breath has improved, now on room air. Swelling nearly resolved. Date of service 05/26/2025: Feeling well today. His heart rate has increased since shifting from IV to p.o. amiodarone. He does not feel palpitations or shortness of brath. Review of Systems Review of Systems: All systems reviewed & are unremarkable except as noted in HPI and below Exam Narrative: Comfortable not in distress Const: General: comfortable and no acute distress Other: Comfortable not in distress HENMT: Head: normal to inspection Other: No epistaxis Eyes: General: appearance normal, both eyes and all related structures Other: No discharge. Neck: Other: Supple Chest: Other: Symmetric lung expansion Resp: Effort & Inspection: normal respiratory effort Other: Clear to auscultation Cardio: Rate: tachycardic Rhythm: abnormal rhythm irregularly irregular Heart sounds: Murmur heart sound present GI: Inspection: normal to inspection Other: No distention or tenderness Skin: Other: No rash Neuro: Other: Alert oriented x3. Moving all extremities Extrem: Other: mild, non-pitting bilateral lower extremity edema Psych: Appearance: grossly normal Other: Normal mood Objective Data Vital Signs Vital Signs: Vital Signs - 24 hr 05/25/25 12:00 05/25/25 12:00 05/25/25 12:00 Temperature 36.6 C Pulse Rate 90 83 90 Respiratory Rate 16 Blood Pressure 130/83 130/83 Pulse Oximetry 96 Oxygen Delivery 05/25/25 14:00 05/25/25 14:00 05/25/25 14:00 Temperature Pulse Rate 103 H 116 H 116 H Respiratory Rate Blood Pressure 137/81 137/81 Pulse Oximetry Oxygen Delivery 05/25/25 15:04 05/25/25 15:55 05/25/25 16:00 Temperature 36.7 C Pulse Rate 92 123 H Respiratory Rate 18 Blood Pressure 106/80 Pulse Oximetry 97 Oxygen Delivery Room Air 05/25/25 16:00 05/25/25 17:50 05/25/25 17:51 Temperature Pulse Rate 102 H 103 H 77 Respiratory Rate Blood Pressure 106/80 Pulse Oximetry Oxygen Delivery 05/25/25 18:00 05/25/25 20:00 05/25/25 20:00 Temperature 36.7 C Pulse Rate 116 H 88 Respiratory Rate 26 H Blood Pressure 119/90 143/97 H Pulse Oximetry 93 Oxygen Delivery Room Air 05/25/25 20:00 05/25/25 20:49 05/25/25 22:00 Temperature Pulse Rate 110 H 102 H 86 Respiratory Rate Blood Pressure Pulse Oximetry Oxygen Delivery 05/25/25 23:13 05/26/25 00:00 05/26/25 00:00 Temperature 36.5 C Pulse Rate 56 L 87 Respiratory Rate 18 Blood Pressure 132/90 Pulse Oximetry 96 Oxygen Delivery Room Air 05/26/25 01:37 05/26/25 01:37 05/26/25 02:00 Temperature Pulse Rate 93 104 H 106 H Respiratory Rate Blood Pressure 145/96 H Pulse Oximetry Oxygen Delivery 05/26/25 04:00 05/26/25 04:00 05/26/25 04:00 Temperature 36.7 C Pulse Rate 95 102 H Respiratory Rate 18 Blood Pressure 144/100 H Pulse Oximetry 99 Oxygen Delivery Room Air 05/26/25 06:00 05/26/25 07:32 05/26/25 07:33 Temperature Pulse Rate 97 102 H 109 H Respiratory Rate Blood Pressure Pulse Oximetry Oxygen Delivery 05/26/25 08:00 05/26/25 08:00 05/26/25 08:00 Temperature 36.3 C L Pulse Rate 119 H 106 H Respiratory Rate 18 Blood Pressure 125/73 Pulse Oximetry 96 Oxygen Delivery Room Air Intake/Output Intake/Output: Intake & Output 05/23/25 05/24/25 05/25/25 05/26/25 23:59 23:59 23:59 23:59 Intake Total 1794.3 2271.0 1174.4 670 Output Total 600 1975 7335 1150 Balance 1194.3 296.0 -6242.6 480 Meds/Results Medications: Active Medications Generic Name Dose Route Start Last Admin Trade Name Freq PRN Reason Stop Dose Admin Acetaminophen 650 mg 05/22/25 16:11 Acetaminophen 325 Mg Tablet PO Q6H PRN Pain Rated 1-3, Fever Albuterol/Ipratropium 3 ml 05/22/25 16:11 05/22/25 20:47 Ipratropium 0.5 Mg/Albuterol Sulfate 2.5 Mg (Base) Ampul.Neb 3 Ml INHALATION 3 ml Q6HRT PRN Administration Shortness Of Breath Or Wheezing Amiodarone HCl 400 mg 05/25/25 21:00 05/26/25 07:32 Amiodarone Hcl 200 Mg Tablet PO 400 mg Q12HR NATHALY Administration Apixaban 5 mg 05/23/25 09:00 05/26/25 07:33 Apixaban 5 Mg Tablet PO 5 mg Q12HR NATHALY Administration Aspirin 81 mg 05/23/25 09:00 05/26/25 07:32 Aspirin 81 Mg Enteric Tablet PO 81 mg QAM NATHALY Administration Atorvastatin Calcium 40 mg 05/23/25 09:00 05/26/25 07:33 Atorvastatin 40 Mg Tablet PO 40 mg DAILY NATHALY Administration Benzonatate 100 mg 05/22/25 16:11 Benzonatate 100 Mg Capsule PO TID PRN Cough Dextrose 12.5 gm 05/22/25 16:41 Dextrose 50% 25 Gm/50 Ml Syringe IV PUSH PRN PRN Hypoglycemia Protocol Furosemide 40 mg 05/24/25 09:00 05/26/25 07:33 Furosemide Inj 40 Mg/4 Ml Vial IV PUSH 40 mg BID NATHALY Administration Glucagon 1 mg 05/22/25 16:41 Glucagon For Inj 1 Mg Vial IM PRN PRN Hypoglycemia Protocol Glucose 15 gm 05/22/25 16:41 Glucose Oral Gel 15 Gm Of Glucse In 37.5 Gm Tube PO PRN PRN Hypoglycemia Protocol Guaifenesin 600 mg 05/22/25 21:00 05/26/25 07:32 Guaifenesin 12 Hr 600 Mg Tabcr PO 600 mg Q12HR NATHALY Administration Ceftriaxone Sodium 1 gm/ 50 mls @ 100 mls/hr 05/23/25 17:00 05/25/25 17:14 Sodium Chloride IVPB 100 mls/hr Q24H NATHALY Administration Azithromycin 500 mg/ Sodium 250 mls @ 250 mls/hr 05/23/25 18:00 05/25/25 17:13 Chloride IVPB 05/26/25 18:59 250 mls/hr Q24H NATHALY Administration Dextrose 1,000 mls @ 100 mls/hr 05/22/25 16:41 Dextrose 5% 1,000 Ml IVPB PRN PRN Hypoglycemia Protocol Insulin Aspart 4 - 8 units 05/22/25 17:00 05/26/25 07:35 Insulin Aspart (*Bkc) 100 Units/Ml SUB-Q Not Given TIDWM NATHALY Protocol Metoprolol Tartrate 5 mg 05/23/25 18:20 05/23/25 21:45 Metoprolol Tartrate Inj 5 Mg/5 Ml Vial IV PUSH 5 mg Q6HR PRN Administration Tachycardia Metoprolol Tartrate 25 mg 05/24/25 09:00 05/26/25 07:33 Metoprolol Tartrate 25 Mg Tablet PO 25 mg Q6H NATHALY Administration Nitroglycerin 0.4 mg 05/22/25 16:12 Nitroglycerin Sl 0.4 Mg Tablet SUBLINGUAL Q5M PRN Chest Pain Radiology Results: ITS Impressions Chest X-Ray 05/22/25 15:25 IMPRESSION: 1. Findings suggest multi lobar pneumonia. Findings should be followed radiographically until clear. Labs Labs: Laboratory Results - last 24 hr 05/25/25 05/25/25 05/25/25 11:12 16:04 21:49 WBC RBC Hgb Hct MCV MCH MCHC RDW Plt Count MPV Immature Gran % (Auto) Neut % (Auto) Lymph % (Auto) [place] % (Auto) Eos % (Auto) Baso % (Auto) Lymph # (Auto) [place] # (Auto) Eos # (Auto) Baso # (Auto) Abs Immat Gran (auto) Absolute Neuts (auto) Absolute Nucleated RBC Nucleated RBC % Sodium Potassium Chloride Carbon Dioxide Anion Gap BUN Creatinine Estim Creat Clear Calc Estimated GFR Glucose POC Capillary Glucose 102 112 H 105 Calcium Magnesium Total Bilirubin AST ALT Alkaline Phosphatase Total Protein Albumin 05/26/25 05/26/25 04:07 07:17 WBC 6.1 RBC 4.47 L Hgb 12.6 L Hct 39.9 L MCV 89.3 MCH 28.2 MCHC 31.6 L RDW 14.0 Plt Count 198 MPV 11.7 H Immature Gran % (Auto) 0.5 Neut % (Auto) 60.3 Lymph % (Auto) 26.2 [place] % (Auto) 10.2 H Eos % (Auto) 2.3 Baso % (Auto) 0.5 Lymph # (Auto) 1.60 [place] # (Auto) 0.6 Eos # (Auto) 0.1 Baso # (Auto) 0.0 Abs Immat Gran (auto) 0.03 Absolute Neuts (auto) 3.7 Absolute Nucleated RBC 0.000 Nucleated RBC % 0.0 Sodium 137 Potassium 3.5 Chloride 105 Carbon Dioxide 27 Anion Gap 5 BUN 14 Creatinine 1.41 H Estim Creat Clear Calc 60 Estimated GFR 52 L Glucose 99 POC Capillary Glucose 79 Calcium 8.7 Magnesium 2.1 Total Bilirubin 0.8 AST 64 H ALT 14 Alkaline Phosphatase 74 Total Protein 6.5 Albumin 3.4 L Quality VTE Prophylaxis VTE prophylaxis: pharmacologic ordered
--- NOTE | 2025-05-26 14:07 | PM.IMPN2 ---
Assessment and Plan Assessment and Plan (1) Sepsis: Qualifiers: Sepsis type: sepsis due to unspecified organism Sepsis acute organ dysfunction status: without acute organ dysfunction Qualified Code(s): A41.9 - Sepsis, unspecified organism Code(s): A41.9 - Sepsis, unspecified organism Status: Acute Assessment and Plan: Patient met sepsis criteria due to heart rate and respiratory rate. No leukocytosis. CXR concerning for multilobar pneumonia. Reporting SOB/cough. Extremities well perfused and warm. No acute hypotension or hypoxia. - blood cultures obtained on 05/22, follow - check lactic and procalcitonin >> 1.2 and procal still pending - s/p IV fluids - monitor hemodynamic stability (2) Pneumonia: Qualifiers: Laterality: bilateral Lung location: unspecified part of lung Pneumonia type: due to unspecified organism Qualified Code(s): J18.9 - Pneumonia, unspecified organism Code(s): J18.9 - Pneumonia, unspecified organism Status: Acute Assessment and Plan: CXR concerning for multilobar pneumonia. Patient endorsing shortness of breath and cough x2 days prior to evaluation. Met sepsis criteria, see above. - check viral PCR - started on ceftriaxone and azithromycin on 05/22, continued inpatient - supportive care: Tylenol p.r.n., Mucinex chery, Tessalon Perles p.r.n., incentive spirometer - sputum culture if obtainable -patient switched to PO Augmentin and Azithromycin to complete 5 day course (3) Atrial fibrillation with rapid ventricular response: Code(s): I48.91 - Unspecified atrial fibrillation Status: Acute Assessment and Plan: Patient has history of paroxysmal AFib and AFib RVR. On Coreg and Eliquis outpatient. - continue apixaban - given diltiazem 20 mg IV, initially rate controlled. Started on metoprolol 25 mg b.i.d. in the ED given he was rate controlled, however post-transfer to the floor he is now back in AFib RVR. Will try metoprolol 5 mg IVP x3, if patient fails to be rate controlled with d/c oral metoprolol and transition back to Cardizem. Hold coreg. - no previous TSH on file, ordered - no previous echo on file and BNP elevated, ordered - telemetry monitoring - s/p cardizem drip - cardiology consulted -s/p IV digoxin -now on amiodarone drip - ECHO with EF 30-355 -patient has not remained rate controlled and plan is for cardioversion tomorrow AM per cardiology -patient NPO after midnight -AM labs (4) Elevated troponin: Code(s): R79.89 - Other specified abnormal findings of blood chemistry Status: Acute Assessment and Plan: Initial troponin elevated at 0.081 > 0.073. Given 324 of ASA in the ED, continued is 81 daily. Elevation in troponin likely secondary to AFib RVR/demand ischemia as well as demand secondary to active infection (multilobar pneumonia). Denies chest pain. - nitro SL p.r.n. - EKGs reviewed, no significant ST depressions or elevations. Does have T-wave inversions. 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 Diabetes mellitus complication status: without complication Qualified Code(s): E11.9 - Type 2 diabetes mellitus without complications Code(s): E11.9 - Type 2 diabetes mellitus without complications Status: Chronic Assessment and Plan: - hypoglycemia protocol - POC blood glucose ACHS - home medication: hold metformin and pioglitazone - correct regimen ordered - high dose TIDWM, based off BMI - A1C 6.3% on 03/17/2025 (6) Hypertension: Qualifiers: Hypertension type: primary hypertension Qualified Code(s): I10 - Essential (primary) hypertension Code(s): I10 - Essential (primary) hypertension Status: Chronic Assessment and Plan: - chronic, currently 110/85 - hold home medications as his pressure has been intermittently soft. home medications include Lisinopril, Coreg, amlodipine - monitor (7) Hyperlipidemia: Qualifiers: Hyperlipidemia type: pure hypercholesterolemia Qualified Code(s): E78.00 - Pure hypercholesterolemia, unspecified Code(s): E78.5 - Hyperlipidemia, unspecified Status: Acute Assessment and Plan: - continue home medication: Atorvastatin 40 mg daily Subjective Date/time seen: 05/26/25 14:07 Interval history: Patient seen for a follow up visit. Patient denies acute complaints. Patient continues on room air. Patient's IV antibiotics changed to PO to complete the 5 day course for pneumonia. Patient's HR has not remained rate controlled with rates up to the 140s. Plan for cardioversion tomorrow per cardiology. Edema improved in lower extremities. IV furosemide changed to oral per cardiology. Review of Systems Review of Systems: All systems reviewed & are unremarkable except as noted in HPI and below Exam Const: General: comfortable and no acute distress Other: , male, nontoxic appearance HENMT: Face/Nose/Sinus: Normal nares present Mouth: Yes moist mucous membranes Eyes: General: appearance normal, both eyes and all related structures Sclera: sclerae normal Pupils: Equal, round and reactive pupils present EOM: EOMs intact bilaterally Resp: Other: diminished breath sounds . No wheezing. No respiratory distress, mild tachypnea. Cardio: Rate: tachycardic Rhythm: abnormal rhythm (Consistent with AFib) Other: S1-S2 present without murmur, rub, ectopy GI: Other: Abdomen soft, nondistended, nontender. Normoactive bowel sounds in all quadrants. Skin: General skin exam: normal color and no rashes or lesions noted Wounds: no wounds Neuro: Cranial nerves: Yes Equal, round and reactive pupils present Speech: normal speech Motor exam (neuro): 5/5 motor strength present throughout Sensory Exam: normal sensation Other: A&O x4 Extrem: Other: trace edema BLE, improved Psych: Mental Status: mental status grossly normal Affect: normal affect Other: Good insight and judgment, very pleasant Objective Data Vital Signs Vital Signs: Vital Signs - 24 hr 05/25/25 15:04 05/25/25 15:55 05/25/25 16:00 Temperature 98.0 F Pulse Rate 92 123 H Respiratory Rate 18 Blood Pressure 106/80 Pulse Oximetry 97 Oxygen Delivery Room Air 05/25/25 16:00 05/25/25 17:50 05/25/25 17:51 Temperature Pulse Rate 102 H 103 H 77 Respiratory Rate Blood Pressure 106/80 Pulse Oximetry Oxygen Delivery 05/25/25 18:00 05/25/25 20:00 05/25/25 20:00 Temperature 98.0 F Pulse Rate 116 H 88 Respiratory Rate 26 H Blood Pressure 119/90 143/97 H Pulse Oximetry 93 Oxygen Delivery Room Air 05/25/25 20:00 05/25/25 20:49 05/25/25 22:00 Temperature Pulse Rate 110 H 102 H 86 Respiratory Rate Blood Pressure Pulse Oximetry Oxygen Delivery 05/25/25 23:13 05/26/25 00:00 05/26/25 00:00 Temperature 97.7 F Pulse Rate 56 L 87 Respiratory Rate 18 Blood Pressure 132/90 Pulse Oximetry 96 Oxygen Delivery Room Air 05/26/25 01:37 05/26/25 01:37 05/26/25 02:00 Temperature Pulse Rate 93 104 H 106 H Respiratory Rate Blood Pressure 145/96 H Pulse Oximetry Oxygen Delivery 05/26/25 04:00 05/26/25 04:00 05/26/25 04:00 Temperature 98.1 F Pulse Rate 95 102 H Respiratory Rate 18 Blood Pressure 144/100 H Pulse Oximetry 99 Oxygen Delivery Room Air 05/26/25 06:00 05/26/25 07:32 05/26/25 07:33 Temperature Pulse Rate 97 102 H 109 H Respiratory Rate Blood Pressure Pulse Oximetry Oxygen Delivery 05/26/25 08:00 05/26/25 08:00 05/26/25 08:00 Temperature 97.4 F L Pulse Rate 119 H 106 H Respiratory Rate 18 Blood Pressure 125/73 Pulse Oximetry 96 Oxygen Delivery Room Air 05/26/25 10:00 05/26/25 11:25 05/26/25 12:00 Temperature 98.3 F Pulse Rate 92 116 H 103 H Respiratory Rate 20 Blood Pressure 112/76 Pulse Oximetry 96 Oxygen Delivery Intake/Output Intake/Output: Intake & Output 05/23/25 05/24/25 05/25/25 05/26/25 23:59 23:59 23:59 23:59 Intake Total 1794.3 2271.0 1174.4 1150 Output Total 600 1975 7335 2100 Balance 1194.3 296.0 -6160.6 -950 Meds/Results Medications: Active Medications Generic Name Dose Route Start Last Admin Trade Name Freq PRN Reason Stop Dose Admin Acetaminophen 650 mg 05/22/25 16:11 Acetaminophen 325 Mg Tablet PO Q6H PRN Pain Rated 1-3, Fever Albuterol/Ipratropium 3 ml 05/22/25 16:11 05/22/25 20:47 Ipratropium 0.5 Mg/Albuterol Sulfate 2.5 Mg (Base) Ampul.Neb 3 Ml INHALATION 3 ml Q6HRT PRN Administration Shortness Of Breath Or Wheezing Amiodarone HCl 400 mg 05/25/25 21:00 05/26/25 07:32 Amiodarone Hcl 200 Mg Tablet PO 400 mg Q12HR CHERY Administration Amoxicillin/Clavulanate Potassium 1 tablet 05/26/25 18:00 Amoxicillin/Clavulanate K 875-125 Mg Tab PO 05/27/25 09:01 Q12HR CHERY Apixaban 5 mg 05/23/25 09:00 05/26/25 07:33 Apixaban 5 Mg Tablet PO 5 mg Q12HR CHERY Administration Aspirin 81 mg 05/23/25 09:00 05/26/25 07:32 Aspirin 81 Mg Enteric Tablet PO 81 mg QAM CHERY Administration Atorvastatin Calcium 40 mg 05/23/25 09:00 05/26/25 07:33 Atorvastatin 40 Mg Tablet PO 40 mg DAILY CHERY Administration Azithromycin 500 mg 05/26/25 16:00 Azithromycin 500 Mg Tablet PO 05/26/25 16:01 ONCE ONE Benzonatate 100 mg 05/22/25 16:11 Benzonatate 100 Mg Capsule PO TID PRN Cough Dextrose 12.5 gm 05/22/25 16:41 Dextrose 50% 25 Gm/50 Ml Syringe IV PUSH PRN PRN Hypoglycemia Protocol Furosemide 40 mg 05/26/25 17:00 Furosemide 40 Mg Tablet PO BID CHERY Glucagon 1 mg 05/22/25 16:41 Glucagon For Inj 1 Mg Vial IM PRN PRN Hypoglycemia Protocol Glucose 15 gm 05/22/25 16:41 Glucose Oral Gel 15 Gm Of Glucse In 37.5 Gm Tube PO PRN PRN Hypoglycemia Protocol Guaifenesin 600 mg 05/22/25 21:00 05/26/25 07:32 Guaifenesin 12 Hr 600 Mg Tabcr PO 600 mg Q12HR CHERY Administration Dextrose 1,000 mls @ 100 mls/hr 05/22/25 16:41 Dextrose 5% 1,000 Ml IVPB PRN PRN Hypoglycemia Protocol Insulin Aspart 4 - 8 units 05/22/25 17:00 05/26/25 12:02 Insulin Aspart (*Bkc) 100 Units/Ml SUB-Q Not Given TIDWM [facility] Protocol Metoprolol Tartrate 5 mg 05/23/25 18:20 05/23/25 21:45 Metoprolol Tartrate Inj 5 Mg/5 Ml Vial IV PUSH 5 mg Q6HR PRN Administration Tachycardia Metoprolol Tartrate 25 mg 05/24/25 09:00 05/26/25 07:33 Metoprolol Tartrate 25 Mg Tablet PO 25 mg Q6H CHERY Administration Nitroglycerin 0.4 mg 05/22/25 16:12 Nitroglycerin Sl 0.4 Mg Tablet SUBLINGUAL Q5M PRN Chest Pain Radiology Results: ITS Impressions Chest X-Ray 05/22/25 15:25 IMPRESSION: 1. Findings suggest multi lobar pneumonia. Findings should be followed radiographically until clear. Labs Labs: Laboratory Results - last 24 hr 05/25/25 05/25/25 05/26/25 16:04 21:49 04:07 WBC 6.1 RBC 4.47 L Hgb 12.6 L Hct 39.9 L MCV 89.3 MCH 28.2 MCHC 31.6 L RDW 14.0 Plt Count 198 MPV 11.7 H Immature Gran % (Auto) 0.5 Neut % (Auto) 60.3 Lymph % (Auto) 26.2 [place] % (Auto) 10.2 H Eos % (Auto) 2.3 Baso % (Auto) 0.5 Lymph # (Auto) 1.60 [place] # (Auto) 0.6 Eos # (Auto) 0.1 Baso # (Auto) 0.0 Abs Immat Gran (auto) 0.03 Absolute Neuts (auto) 3.7 Absolute Nucleated RBC 0.000 Nucleated RBC % 0.0 Sodium 137 Potassium 3.5 Chloride 105 Carbon Dioxide 27 Anion Gap 5 BUN 14 Creatinine 1.41 H Estim Creat Clear Calc 60 Estimated GFR 52 L Glucose 99 POC Capillary Glucose 112 H 105 Calcium 8.7 Magnesium 2.1 Total Bilirubin 0.8 AST 64 H ALT 14 Alkaline Phosphatase 74 Total Protein 6.5 Albumin 3.4 L 05/26/25 05/26/25 07:17 11:06 WBC RBC Hgb Hct MCV MCH MCHC RDW Plt Count MPV Immature Gran % (Auto) Neut % (Auto) Lymph % (Auto) [place] % (Auto) Eos % (Auto) Baso % (Auto) Lymph # (Auto) [place] # (Auto) Eos # (Auto) Baso # (Auto) Abs Immat Gran (auto) Absolute Neuts (auto) Absolute Nucleated RBC Nucleated RBC % Sodium Potassium Chloride Carbon Dioxide Anion Gap BUN Creatinine Estim Creat Clear Calc Estimated GFR Glucose POC Capillary Glucose 79 120 H Calcium Magnesium Total Bilirubin AST ALT Alkaline Phosphatase Total Protein Albumin Quality VTE Prophylaxis VTE prophylaxis: pharmacologic ordered
[2025-05-26] MEDS: FUROSEMIDE 40 MG TABLET PO (16:55)
[2025-05-26] MEDS: AZITHROMYCIN 500 MG TABLET PO (16:58)
[2025-05-27] VITALS (17 sets, daily range): BP systolic 100–134; BP diastolic 63–86; PULSE 64–92; RESP 16–22; TEMP 36.4–36.7; O2SAT 93–99
--- NOTE | 2025-05-27 | ECHO_ITS ---
Patient Info Name: Vishal Ray Age: 59 years : 1965 Gender: Male Ht: 66 in Wt: 267 lbs BSA: 2.44 m2 HR: 125 bpm BP: 114 / 84 mmHg Heart Rhythm: Atrial Fibrillation Technical Quality: Good Exam Date: 05/27/2025 11:00 AM Patient Status: I Admit Date: 05/23/2025 Exam Type: CA echo transesophageal Complete two-dimensional, color flow and Doppler transesophageal study is performed. Staff Referring Physician: René Quevedo MD [employer] Associate: Norberto French III Attending Provider: Fuad Noyola Summary 1. Left ventricular chamber dimension is moderately enlarged. 2. There is mild concentric increased left ventricular wall thickness. 3. Left ventricular systolic function is severely globally reduced with an ejection fraction of 20-25% by visual estimation. 4. The left ventricular diastolic function is indeterminate as it was not assessed. 5. Left atrial chamber dimension is severely enlarged. 6. The aortic valve is bicuspid. 7. There is mild aortic valve sclerosis. 8. There is trace aortic valve regurgitation. 9. There is mild mitral valve regurgitation. 10. There is trace tricuspid valve regurgitation. Procedure Details Risks/benefits/alternative to GAVI discuss with patient and he is agreeable to it. Patient monitored electrocardiographically, vital, pulse ox. He was in atrial fibrillation at 100 bpm, BP 140/90 mmHg, pulse ox 100%. Cetacaine spray x 1 to posterior oropharynx. Anesthesiology sedated patient. GAVI probe advanced into esophagus without incident. Multiple images obtained. GAVI probe withdrawn and no blood noted on GAVI probe tip. Patient tolerated procedure well with no complications. Left Ventricle Left ventricular chamber dimension is moderately enlarged. There is mild concentric increased left ventricular wall thickness. Left ventricular systolic function is severely globally reduced with an ejection fraction of 20-25% by visual estimation. The left ventricular diastolic function is indeterminate as it was not assessed. Right Ventricle Right ventricular chamber dimension is normal. Right ventricular systolic function is normal. Left Atria Left atrial chamber dimension is severely enlarged. Right Atria Right atrial chamber dimension is normal. Atrial Septum Intact interatrial septum visualized by 2D and color flow imaging. Atrial Appendage There is no thrombus visualized in the left atrial appendage. Aortic Valve The aortic valve is bicuspid. There is mild aortic valve sclerosis. There is no aortic valve stenosis and valve area is 3.0 cm by planimetry. There is trace aortic valve regurgitation. Pulmonic Valve There is no pulmonic regurgitation. Mitral Valve There is no mitral valve stenosis. There is mild mitral valve regurgitation. Tricuspid Valve There is trace tricuspid valve regurgitation. RVSP is not measured. Pericardium/Pleural There is no pericardial effusion. Inferior Vena Cava Inferior vena cava is not well visualized. Aorta The aortic root size at the sinus of Valsalva is normal. Aortic Valve Name Value Normal AV 2D/MM AV Area (Planimetry) 3.0 cm2 Report Signatures
[2025-05-27] MEDS: METOPROLOL TARTRATE 25 MG TABLET PO ×2 (01:54→08:37)
[2025-05-27 04:44] LABS: Hematocrit 40.3 % (42.0-52.0); Hemoglobin 13.1 g/dL (14.0-18.0); Immature Granulocyte Percent A 0.3 % (0-0.5); Lymphocytes Absolute Auto 1.85 K/mm3 (0.9-3.2); Mean Corpuscular HGB Conc 32.5 g/dl (32-36); Mean Corpuscular Hemoglobin 29.2 pg (26-34); Mean Corpuscular Volume 90.0 fl (80-100); Nucleated Red Blood Cells Absolute Auto 0.000 K/mm3 (0.0-0.012); Nucleated Red Blood Cells Perc 0.0 % (0.0-0.2); Platelet Count Result 207 k/mm3 (150-375); Red Blood Count 4.48 M/mm3 (4.6-6.20); White Blood Count 6.1 K/mm3 (4.5-10.0)
[2025-05-27 05:15] LABS: Alanine Aminotransferase 15 U/L (6-50); Albumin Level 3.3 g/dL (3.5-5.1); Alkaline Phosphatase 69 U/L (38-126); Anion Gap 6 mmol/L (4-12); Aspartate Amino Transferase 68 U/L (17-59); Bilirubin,Total 0.9 mg/dL (0.2-1.3); Blood Urea Nitrogen 16 mg/dL (9-20); Calcium 8.5 mg/dL (8.4-10.2); Carbon Dioxide 27 mmol/L (22-30); Chloride 105 mmol/L (98-107); Estimated CRCL calculation 55 ml/min; Estimated Glomerular Filt Rate 45; Glucose 93 mg/dL (65-110); Potassium 3.6 mmol/L (3.4-5.0); Sodium 138 mmol/L (137-145); Total Protein 6.3 g/dL (6.3-8.2)
[2025-05-27] MEDS: AMIODARONE HCL 200 MG TABLET 400 MG PO (08:36)
[2025-05-27] MEDS: ASPIRIN 81 MG ENTERIC TABLET PO (08:37)
[2025-05-27] MEDS: APIXABAN 5 MG TABLET PO (08:37)
[2025-05-27] MEDS: ATORVASTATIN 40 MG TABLET PO (08:37)
--- NOTE | 2025-05-27 09:40 | PM.PNCARD ---
Progress Note: A&P Assessment and Plan (1) Atrial fibrillation with rapid ventricular response: Code(s): I48.91 - Unspecified atrial fibrillation Status: Acute (2) Pneumonia: Qualifiers: Laterality: bilateral Lung location: unspecified part of lung Pneumonia type: due to unspecified organism Qualified Code(s): J18.9 - Pneumonia, unspecified organism Code(s): J18.9 - Pneumonia, unspecified organism Status: Acute (3) Hypertension: Qualifiers: Hypertension type: primary hypertension Qualified Code(s): I10 - Essential (primary) hypertension Code(s): I10 - Essential (primary) hypertension Status: Chronic (4) Hyperlipidemia: Qualifiers: Hyperlipidemia type: pure hypercholesterolemia Qualified Code(s): E78.00 - Pure hypercholesterolemia, unspecified Code(s): E78.5 - Hyperlipidemia, unspecified Status: Acute Plan -AFib with RVR -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 Patient presented to the hospital with shortness of breath, lower extremity edema and cough and cold-like symptoms.. Chest x-ray showed multilobar pneumonia. Echocardiogram during this admission ejection fraction 30-35% with possible severe aortic stenosis, based on mean gradient, can repeat on OP basis once afib better controlled. He was started on IV amiodarone drip and heart rate improved. Shifted to p.o. amiodarone last evening - 400mg b.i.d. for one week, followed by 200mg daily. Continue metoprolol 25 mg q.6 hours with holding parameters. can change Metoprolol to 50 mg BID at discharge. Continue Eliquis. Acute-combined systolic and diastolic heart failure exacerbation, improving. Looks euvolemic at this point. No on oral lasix -in regards to aortic stenosis, the echo that was done during this admission is of poor quality. It seems that there is significant aortic stenosis which needs to be reassessed as an outpatient home once the AFib is under control. Dr. Reynolds will follow up with this patient as an outpatient. -in regards to pneumonia, continue antibiotics. -regards to hypertension, re-evaluate after starting metoprolol after achieving adequate diuresis.. At home he takes amlodipine 10 mg daily and carvedilol 3.125 mg b.i.d.. Lisinopril 20 mg daily. would resume lisinopril at 10 mg daily for discharge and continue Metoprolol 50 mg BID. Hold coreg and norvasc at discharge. -in regards to diabetes at home he is on metformin and pioglitazone. Pioglitazone is contraindicated in CHF patients and would not restart it as an outpatient. Time Spent With Patient Time: plan GAVI/CV today possible discharge after if ok with others Subjective Date/time seen: 05/27/25 09:40 Interval history: 59-year-old patient with history of paroxysmal atrial fibrillation, hypertension, diabetes, hyperlipidemia presents to the hospital shortness of breath for 2-3 days. Associated with cold-like symptoms. Also lower extremity edema. Denies chest pain, syncope. Was found to be in AFib with RVR. He is on diltiazem drip 5 mg an hour and heart rates 120 he has. Feels better today.White cell count 6.7 Chest x-ray reviewed and denies months of reported as multilobar pneumonia.Creatinine 1.4, troponins 0.08, 0.073, 0.071.EKG reviewed as well esophageal fibrillation with RVR. Date of service 05/24/2025: Remains in AFib with RVR and tachycardic despite receiving IV amiodarone. 2 L nasal cannula. Date of service 05/25/2025: Remains in atrial fibrillation but heart rate is now controlled. Does have tachycardia with minimal activity, however. Shortness of breath has improved, now on room air. Swelling nearly resolved. Date of service 05/26/2025: Feeling well today. His heart rate has increased since shifting from IV to p.o. amiodarone. He does not feel palpitations or shortness of brath. Date of service 05/27/25: Patient sitting up in bed, his is at the bedside. He denies any chest pain, shortness of breath, or palpitations. HR is currently in 90s on monitor, but continues to have RVR on monitor. Planned for GAVI/CV today Review of Systems Review of Systems: All systems reviewed & are unremarkable except as noted in HPI and below Exam Const: General: comfortable and no acute distress Neck: Neck: supple and No no JVD Resp: Effort & Inspection: normal respiratory effort Auscultation: clear to auscultation bilaterally Cardio: Rate: tachycardic Rhythm: abnormal rhythm irregularly irregular Skin: General skin exam: normal color Neuro: Speech: normal speech Extrem: General: no edema Psych: Mental Status: mental status grossly normal Objective Data Vital Signs Vital Signs: Vital Signs - 24 hr 05/26/25 10:00 05/26/25 11:25 05/26/25 12:00 Temperature 36.8 C Pulse Rate 92 116 H 103 H Respiratory Rate 20 Blood Pressure 112/76 Pulse Oximetry 96 Oxygen Delivery 05/26/25 14:00 05/26/25 14:25 05/26/25 16:00 Temperature Pulse Rate 108 H 106 H 106 H Respiratory Rate Blood Pressure Pulse Oximetry Oxygen Delivery 05/26/25 16:00 05/26/25 16:10 05/26/25 17:56 Temperature 36.5 C Pulse Rate 92 123 H Respiratory Rate 20 Blood Pressure 119/85 Pulse Oximetry 99 Oxygen Delivery Room Air 05/26/25 20:00 05/26/25 20:00 05/26/25 20:06 Temperature Pulse Rate 107 H 96 Respiratory Rate Blood Pressure Pulse Oximetry Oxygen Delivery Room Air 05/26/25 20:06 05/26/25 20:25 05/26/25 21:11 Temperature 36.6 C Pulse Rate 96 100 Respiratory Rate 16 Blood Pressure 121/79 Pulse Oximetry 96 96 Oxygen Delivery Room Air 05/26/25 22:00 05/27/25 00:00 05/27/25 00:00 Temperature Pulse Rate 93 84 Respiratory Rate Blood Pressure Pulse Oximetry Oxygen Delivery Room Air 05/27/25 00:06 05/27/25 01:54 05/27/25 02:00 Temperature 36.7 C Pulse Rate 87 92 88 Respiratory Rate 18 Blood Pressure 100/63 Pulse Oximetry 95 Oxygen Delivery 05/27/25 03:57 05/27/25 04:00 05/27/25 05:02 Temperature 36.5 C Pulse Rate 90 72 Respiratory Rate 18 Blood Pressure 103/75 Pulse Oximetry 97 Oxygen Delivery Room Air 05/27/25 05:55 05/27/25 07:48 05/27/25 08:36 Temperature 36.6 C Pulse Rate 78 89 86 Respiratory Rate 16 Blood Pressure 128/86 Pulse Oximetry 95 Oxygen Delivery 05/27/25 08:37 Temperature Pulse Rate 86 Respiratory Rate Blood Pressure Pulse Oximetry Oxygen Delivery Intake/Output Intake/Output: Intake & Output 05/24/25 05/25/25 05/26/25 05/27/25 23:59 23:59 23:59 23:59 Intake Total 2271.0 1174.4 1890 550 Output Total 4386 7335 2900 1050 Balance 296.0 -6160.6 -1010 -500 Meds/Results Medications: Active Medications Generic Name Dose Route Start Last Admin Trade Name Freq PRN Reason Stop Dose Admin Acetaminophen 650 mg 05/22/25 16:11 Acetaminophen 325 Mg Tablet PO Q6H PRN Pain Rated 1-3, Fever Albuterol/Ipratropium 3 ml 05/22/25 16:11 05/22/25 20:47 Ipratropium 0.5 Mg/Albuterol Sulfate 2.5 Mg (Base) Ampul.Neb 3 Ml INHALATION 3 ml Q6HRT PRN Administration Shortness Of Breath Or Wheezing Amiodarone HCl 400 mg 05/25/25 21:00 05/27/25 08:36 Amiodarone Hcl 200 Mg Tablet PO 400 mg Q12HR NATHALY Administration Apixaban 5 mg 05/23/25 09:00 05/27/25 08:37 Apixaban 5 Mg Tablet PO 5 mg Q12HR NATHALY Administration Aspirin 81 mg 05/23/25 09:00 05/27/25 08:37 Aspirin 81 Mg Enteric Tablet PO 81 mg QAM NATHALY Administration Atorvastatin Calcium 40 mg 05/23/25 09:00 05/27/25 08:37 Atorvastatin 40 Mg Tablet PO 40 mg DAILY NATHALY Administration Benzonatate 100 mg 05/22/25 16:11 Benzonatate 100 Mg Capsule PO TID PRN Cough Dextrose 12.5 gm 05/22/25 16:41 Dextrose 50% 25 Gm/50 Ml Syringe IV PUSH PRN PRN Hypoglycemia Protocol Furosemide 40 mg 05/26/25 17:00 05/27/25 08:39 Furosemide 40 Mg Tablet PO Not Given BID NATHALY Glucagon 1 mg 05/22/25 16:41 Glucagon For Inj 1 Mg Vial IM PRN PRN Hypoglycemia Protocol Glucose 15 gm 05/22/25 16:41 Glucose Oral Gel 15 Gm Of Glucse In 37.5 Gm Tube PO PRN PRN Hypoglycemia Protocol Guaifenesin 600 mg 05/22/25 21:00 05/27/25 08:39 Guaifenesin 12 Hr 600 Mg Tabcr PO Not Given Q12HR NATHALY Dextrose 1,000 mls @ 100 mls/hr 05/22/25 16:41 Dextrose 5% 1,000 Ml IVPB PRN PRN Hypoglycemia Protocol Insulin Aspart 4 - 8 units 05/22/25 17:00 05/26/25 16:55 Insulin Aspart (*Bkc) 100 Units/Ml SUB-Q Not Given TIDWM [facility] Protocol Metoprolol Tartrate 5 mg 05/23/25 18:20 05/23/25 21:45 Metoprolol Tartrate Inj 5 Mg/5 Ml Vial IV PUSH 5 mg Q6HR PRN Administration Tachycardia Metoprolol Tartrate 25 mg 05/24/25 09:00 05/27/25 08:37 Metoprolol Tartrate 25 Mg Tablet PO 25 mg Q6H NATHALY Administration Nitroglycerin 0.4 mg 05/22/25 16:12 Nitroglycerin Sl 0.4 Mg Tablet SUBLINGUAL Q5M PRN Chest Pain Radiology Results: ITS Impressions Chest X-Ray 05/22/25 15:25 IMPRESSION: 1. Findings suggest multi lobar pneumonia. Findings should be followed radiographically until clear. Labs Labs: Laboratory Results - last 24 hr 05/26/25 05/26/25 05/26/25 11:06 15:39 20:30 WBC RBC Hgb Hct MCV MCH MCHC RDW Plt Count MPV Immature Gran % (Auto) Neut % (Auto) Lymph % (Auto) [place] % (Auto) Eos % (Auto) Baso % (Auto) Lymph # (Auto) [place] # (Auto) Eos # (Auto) Baso # (Auto) Abs Immat Gran (auto) Absolute Neuts (auto) Absolute Nucleated RBC Nucleated RBC % Sodium Potassium Chloride Carbon Dioxide Anion Gap BUN Creatinine Estim Creat Clear Calc Estimated GFR Glucose POC Capillary Glucose 120 H 109 H 106 H Calcium Total Bilirubin AST ALT Alkaline Phosphatase Total Protein Albumin 05/27/25 05/27/25 05/27/25 04:05 04:06 07:07 WBC 6.1 RBC 4.48 L Hgb 13.1 L Hct 40.3 L MCV 90.0 MCH 29.2 MCHC 32.5 RDW 13.9 Plt Count 207 MPV 11.5 H Immature Gran % (Auto) 0.3 Neut % (Auto) 56.5 Lymph % (Auto) 30.2 [place] % (Auto) 10.1 H Eos % (Auto) 2.4 Baso % (Auto) 0.5 Lymph # (Auto) 1.85 [place] # (Auto) 0.6 Eos # (Auto) 0.2 Baso # (Auto) 0.0 Abs Immat Gran (auto) 0.02 Absolute Neuts (auto) 3.5 Absolute Nucleated RBC 0.000 Nucleated RBC % 0.0 Sodium 138 Potassium 3.6 Chloride 105 Carbon Dioxide 27 Anion Gap 6 BUN 16 Creatinine 1.59 H Estim Creat Clear Calc 55 Estimated GFR 45 L Glucose 93 POC Capillary Glucose 97 Calcium 8.5 Total Bilirubin 0.9 AST 68 H ALT 15 Alkaline Phosphatase 69 Total Protein 6.3 Albumin 3.3 L
--- NOTE | 2025-05-27 10:00 | ECG_ITS ---
Test Date: 2025-05-27 11:02:36 Measurements Intervals [place] Rate: 107 P: 0 DE: 0 QRS: 37 QRSD: 90 T: 192 QT: 357 QTc: 478 Interpretive Statements ATRIAL FIBRILLATION WITH RAPID VENTRICULAR RESPONSE LEFT VENTRICULAR HYPERTROPHY WITH ST-T CHANGE BORDERLINE ST-T WAVE ABNORMALITY- ANT/INF LEADS BASELINE ARTIFACT- I, II, AVR, AVL ABNORMAL ECG Compared to ECG 05/22/2025 20:55:45 Possible ischemia no longer present Electronically Signed On 05-27-2025 12:18:32 [employer] by Aneudy Flor D.O.
--- NOTE | 2025-05-27 10:30 | ECG_ITS ---
Test Date: 2025-05-27 11:15:51 Measurements Intervals [place] Rate: 75 P: 50 NE: 169 QRS: 39 QRSD: 77 T: 138 QT: 417 QTc: 466 Interpretive Statements SINUS RHYTHM WITH OCCASIONAL SUPRAVENTRICULAR PREMATURE COMPLEXES LEFT VENTRICULAR HYPERTROPHY WITH ST-T CHANGE MODERATE T-WAVE ABNORMALITY, CONSIDER ANTERIOR ISCHEMIA ABNORMAL ECG Compared to ECG 05/27/2025 11:02:36 Atrial fibrillation no longer present POSSIBLE ISCHEMIA NOW PRESENT Electronically Signed On 05-27-2025 12:19:25 [employer]ICE BOOKKEEPER by Aneudy Flor D.O.
--- NOTE | 2025-05-27 10:45 | P.PNAN_ITS ---
Anes - Initial Pre Proc Eval Procedure: Operation Date: 05/27/25 11:00 Proposed Procedures p Electrical Cardioversion - Aneudy Flor DO s Trans Esophageal Echo - Aneudy Flor DO Date/Time: 05/27/25 10:45 Surgeon: Fuad Noyola MD Pre Op Diagnosis: Afib with RVR, elevated troponin, pneumonia Patient Data Age: 59 Gender: M Height: 1.68 m Weight: 116.9 kg Last Vital Signs Temp 36.6 C 05/27/25 07:48 Pulse 83 05/27/25 10:00 Resp 16 05/27/25 07:48 BP 128/86 05/27/25 07:48 Pulse Ox 95 05/27/25 07:48 O2 Del Method Room Air 05/27/25 08:23 O2 Flow Rate 1 05/25/25 08:14 FiO2 21 05/25/25 08:51 Allergies Allergy/AdvReac Type Severity Reaction Status Date / Time No Known Allergies Allergy Verified 05/22/25 18:50 Home Medications ?Medication ?Instructions ?Recorded ?Confirmed ?Type amlodipine 10 mg tablet 10 mg PO DAILY #90 tabs 12/0905/22/25 Rx apixaban 5 mg tablet (Eliquis) 5 mg PO BID #180 tabs 0 12/19/24 05/22/25 Rx atorvastatin 40 mg tablet 40 mg PO DAILY #90 tabs 12/0905/22/25 Rx carvedilol 3.125 mg tablet 3.125 mg PO Q12H #180 tabs 12/19/24 05/22/25 Rx lisinopril 20 mg tablet 20 mg PO DAILY #90 tabs 12/0905/22/25 Rx metformin 500 mg tablet,extended 1,000 mg (2 x 500 mg) PO DAILY 12/19/24 05/22/25 Rx release 24hr (osmotic) #180 tabs pioglitazone 30 mg tablet 30 mg PO DAILY #90 tabs 12/0905/22/25 Rx Laboratory Tests 05/26/25 05/26/25 05/26/25 11:06 15:39 20:30 WBC RBC Hgb Hct MCV MCH MCHC RDW Plt Count MPV Immature Gran % (Auto) Neut % (Auto) Lymph % (Auto) [place] % (Auto) Eos % (Auto) Baso % (Auto) Lymph # (Auto) [place] # (Auto) Eos # (Auto) Baso # (Auto) Abs Immat Gran (auto) Absolute Neuts (auto) Absolute Nucleated RBC Nucleated RBC % Sodium Potassium Chloride Carbon Dioxide Anion Gap BUN Creatinine Estim Creat Clear Calc Estimated GFR Glucose POC Capillary Glucose 120 H mg/dl 109 H mg/dl 106 H mg/dl (65-105) (65-105) (65-105) Calcium Total Bilirubin AST ALT Alkaline Phosphatase Total Protein Albumin 05/27/25 05/27/25 05/27/25 04:05 04:06 07:07 WBC 6.1 K/mm3 (4.5-10.0) RBC 4.48 L M/mm3 (4.6-6.20) Hgb 13.1 L g/dL (14.0-18.0) Hct 40.3 L % (42.0-52.0) MCV 90.0 fl (80-100) MCH 29.2 pg (26-34) MCHC 32.5 g/dl (32-36) RDW 13.9 % (11.5-14.5) Plt Count 207 k/mm3 (150-375) MPV 11.5 H fl (7.4-10.4) Immature Gran % (Auto) 0.3 % (0-0.5) Neut % (Auto) 56.5 % (45.5-73.1) Lymph % (Auto) 30.2 % (18.3-44.2) [place] % (Auto) 10.1 H % (2.6-8.5) Eos % (Auto) 2.4 % (0-4.4) Baso % (Auto) 0.5 % (0.2-1.2) Lymph # (Auto) 1.85 K/mm3 (0.9-3.2) [place] # (Auto) 0.6 K/mm3 (0.1-0.6) Eos # (Auto) 0.2 K/mm3 (0-0.3) Baso # (Auto) 0.0 K/mm3 (0.0-0.1) Abs Immat Gran (auto) 0.02 K/mm3 (0.00-0.031) Absolute Neuts (auto) 3.5 K/mm3 (1.3-6.7) Absolute Nucleated RBC 0.000 K/mm3 (0.0-0.012) Nucleated RBC % 0.0 % (0.0-0.2) Sodium 138 mmol/L (137-145) Potassium 3.6 mmol/L (3.4-5.0) Chloride 105 mmol/L (98-107) Carbon Dioxide 27 mmol/L (22-30) Anion Gap 6 mmol/L (4-12) BUN 16 mg/dL (9-20) Creatinine 1.59 H mg/dL (0.7-1.3) Estim Creat Clear Calc 55 ml/min Estimated GFR 45 L (59 - ) Glucose 93 mg/dL (65-110) POC Capillary Glucose 97 mg/dl (65-105) Calcium 8.5 mg/dL (8.4-10.2) Total Bilirubin 0.9 mg/dL (0.2-1.3) AST 68 H U/L (17-59) ALT 15 U/L (6-50) Alkaline Phosphatase 69 U/L (38-126) Total Protein 6.3 g/dL (6.3-8.2) Albumin 3.3 L g/dL (3.5-5.1) Patient hx anesthesia problems: none Family hx anesthesia problems: none Results Review: All pre-operative results and documents have been reviewed as part of the pre- operative evaluation. FORMERLY [facility], [facility] Past Medical History Medical History Type 2 diabetes mellitus without complications Benign essential hypertension Myelopathy History of cerebrovascular accident with current residual effects Morbid obesity Paroxysmal atrial fibrillation Hyperlipidemia Social History Social History Smoking packs per day: 2 Smoking cigarettes per day: 40.0 Years smoked: 20 Smoking pack-years: 40.00 Smoking status: Former smoker Tobacco type: cigarettes Second hand tobacco smoke exposure: No Smoking end date: 05/22/05 Alcohol intake: unknown Substance use: never Substance use type: does not use Lack of Transportation: No Lack of Food: Never True Current Housing: I Have Housing Concerned About Future Housing: No Difficulty Paying Gas/Electric Bills: No Difficulty Paying for Meds: No Currently Unemployed: No Education: High School Diploma/GED Difficulty w/ Childcare or Family Care: No Living arrangements: with family Occupation/Education: occupation 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 Gender identity (if verbalized by the patient): Male Sexual Orientation (if Verbalized by the Patient): Straight or Heterosexual Spiritual care concerns: No Anes - Eval Final PreProcedure Day of Procedure 05/27/25 10:45 Patient weight: obese Heart: irregular rhythm Lungs: decreased breath sounds Airway: Mallampati scale class II Neurological: alert and oriented Last oral intake: >/= 8 hours ASA classification: III Emergent: no Anesthetic plan: proceed Anesthesia type and monitoring: general GIVS and standard monitoring Results Review: All pre-operative results and documents have been reviewed as part of the pre- operative evaluation. Informed Consent: The patient's anesthetic plan and its attendant risks and benefits were discussed with the patient/family/POA. Questions were solicited and answers provided to the satisfaction of the patient/family/POA.
--- NOTE | 2025-05-27 11:51 | P.PNIM_ITS ---
Assessment and Plan Assessment and Plan (1) Sepsis: Qualifiers: Sepsis type: sepsis due to unspecified organism Sepsis acute organ dysfunction status: without acute organ dysfunction Qualified Code(s): A41.9 - Sepsis, unspecified organism Code(s): A41.9 - Sepsis, unspecified organism Status: Acute Assessment and Plan: Patient met sepsis criteria due to heart rate and respiratory rate. No leukocytosis. CXR concerning for multilobar pneumonia. Reporting SOB/cough. E xtremities well perfused and warm. No acute hypotension or hypoxia. - blood cultures obtained on 05/22, follow - check lactic and procalcitonin >> 1.2 and procal still pending - s/p IV fluids - monitor hemodynamic stability (2) Pneumonia: Qualifiers: Laterality: bilateral Lung location: unspecified part of lung Pneumonia type: due to unspecified organism Qualified Code(s): J18.9 - Pneumonia, unspecified organism Code(s): J18.9 - Pneumonia, unspecified organism Status: Acute Assessment and Plan: CXR concerning for multilobar pneumonia. Patient endorsing shortness of breath and cough x2 days prior to evaluation. Met sepsis criteria, see above. - check viral PCR - started on ceftriaxone and azithromycin on 05/22, continued inpatient - supportive care: Tylenol p.r.n., Mucinex chery, Tessalon Perles p.r.n., incentive spirometer - sputum culture if obtainable -patient switched to PO Augmentin and Azithromycin to complete 5 day course (3) Atrial fibrillation with rapid ventricular response: Code(s): I48.91 - Unspecified atrial fibrillation Status: Acute Assessment and Plan: Patient has history of paroxysmal AFib and AFib RVR. On Coreg and Eliquis outpatient. - continue apixaban - given diltiazem 20 mg IV, initially rate controlled. Started on metoprolol 25 mg b.i.d. in the ED given he was rate controlled, however post-transfer to the floor he is now back in AFib RVR. Will try metoprolol 5 mg IVP x3, if patient fails to be rate controlled with d/c oral metoprolol and transition back to Cardizem. Hold coreg. - no previous TSH on file, ordered - no previous echo on file and BNP elevated, ordered - telemetry monitoring - s/p cardizem drip - cardiology consulted -s/p IV digoxin -now on amiodarone drip - ECHO with EF 30-355 -patient has not remained rate controlled and plan is for cardioversion tomorrow AM per cardiology -patient NPO after midnight -AM labs (4) Elevated troponin: Code(s): R79.89 - Other specified abnormal findings of blood chemistry Status: Acute Assessment and Plan: Initial troponin elevated at 0.081 > 0.073. Given 324 of ASA in the ED, continued is 81 daily. Elevation in troponin likely secondary to AFib RVR/demand ischemia as well as demand secondary to active infection (multilobar pneumonia). Denies chest pain. - nitro SL p.r.n. - EKGs reviewed, no significant ST depressions or elevations. Does have T-wave inversions. - trend troponin (5) Diabetes: Qualifiers: Diabetes mellitus type: type 2 Diabetes mellitus long-term insulin use: without exterminator use Diabetes mellitus complication status: without complication Qualified Code(s): E11.9 - Type 2 diabetes mellitus without complications Code(s): E11.9 - Type 2 diabetes mellitus without complications Status: Chronic Assessment and Plan: - hypoglycemia protocol - POC blood glucose ACHS - home medication: hold metformin and pioglitazone - correct regimen ordered - high dose TIDWM, based off BMI - A1C 6.3% on 03/17/2025 (6) Hypertension: Qualifiers: Hypertension type: primary hypertension Qualified Code(s): I10 - Essential (primary) hypertension Code(s): I10 - Essential (primary) hypertension Status: Chronic Assessment and Plan: - chronic, currently 110/85 - hold home medications as his pressure has been intermittently soft. home medications include Lisinopril, Coreg, amlodipine - monitor (7) Hyperlipidemia: Qualifiers: Hyperlipidemia type: pure hypercholesterolemia Qualified Code(s): E78.00 - Pure hypercholesterolemia, unspecified Code(s): E78.5 - Hyperlipidemia, unspecified Status: Acute Assessment and Plan: - continue home medication: Atorvastatin 40 mg daily Subjective Date/time seen: 05/27/25 11:51 Interval history: 59 y/o M with PMH of pAfib, myelopathy, CVA, HLD, HTN, and diabetes on oral medications presents here with shortness of breath admitted to the hospital for further evaluation and treatment of AFib with RVR and sepsis secondary to pneumonia. Review of Systems Review of Systems: All systems reviewed & are unremarkable except as noted in HPI and below Exam Const: General: comfortable and no acute distress Other: , male, nontoxic appearance HENMT: Face/Nose/Sinus: Normal nares present Mouth: Yes moist mucous membranes Eyes: General: appearance normal, both eyes and all related structures Sclera: sclerae normal Pupils: Equal, round and reactive pupils present EOM: EOMs intact bilaterally Resp: Other: diminished breath sounds . No wheezing. No respiratory distress, mild tachypnea. Cardio: Rate: tachycardic Rhythm: abnormal rhythm (Consistent with AFib) Other: S1-S2 present without murmur, rub, ectopy GI: Other: Abdomen soft, nondistended, nontender. Normoactive bowel sounds in all quadrants. Skin: General skin exam: normal color and no rashes or lesions noted Wounds: no wounds Neuro: Cranial nerves: Yes Equal, round and reactive pupils present Speech: normal speech Motor exam (neuro): 5/5 motor strength present throughout Sensory Exam: normal sensation Other: A&O x4 Extrem: Other: trace edema BLE, improved Psych: Mental Status: mental status grossly normal Affect: normal affect Other: Good insight and judgment, very pleasant Objective Data Vital Signs Vital Signs: Vital Signs - 24 hr 05/26/25 12:00 05/26/25 14:00 05/26/25 14:25 Temperature Pulse Rate 103 H 108 H 106 H Respiratory Rate Blood Pressure Pulse Oximetry Oxygen Delivery Oxygen Flow Rate 05/26/25 16:00 05/26/25 16:00 05/26/25 16:10 Temperature 97.7 F Pulse Rate 106 H 92 Respiratory Rate 20 Blood Pressure 119/85 Pulse Oximetry 99 Oxygen Delivery Room Air Oxygen Flow Rate 05/26/25 17:56 05/26/25 20:00 05/26/25 20:00 Temperature Pulse Rate 123 H 107 H Respiratory Rate Blood Pressure Pulse Oximetry Oxygen Delivery Room Air Oxygen Flow Rate 05/26/25 20:06 05/26/25 20:06 05/26/25 20:25 Temperature 97.9 F Pulse Rate 96 96 100 Respiratory Rate 16 Blood Pressure 121/79 Pulse Oximetry 96 Oxygen Delivery Oxygen Flow Rate 05/26/25 21:11 05/26/25 22:00 05/27/25 00:00 Temperature Pulse Rate 93 Respiratory Rate Blood Pressure Pulse Oximetry 96 Oxygen Delivery Room Air Room Air Oxygen Flow Rate 05/27/25 00:00 05/27/25 00:06 05/27/25 01:54 Temperature 98.0 F Pulse Rate 84 87 92 Respiratory Rate 18 Blood Pressure 100/63 Pulse Oximetry 95 Oxygen Delivery Oxygen Flow Rate 05/27/25 02:00 05/27/25 03:57 05/27/25 04:00 Temperature Pulse Rate 88 90 Respiratory Rate Blood Pressure Pulse Oximetry Oxygen Delivery Room Air Oxygen Flow Rate 05/27/25 05:02 05/27/25 05:55 05/27/25 07:48 Temperature 97.7 F 97.8 F Pulse Rate 72 78 89 Respiratory Rate 18 16 Blood Pressure 103/75 128/86 Pulse Oximetry 97 95 Oxygen Delivery Oxygen Flow Rate 05/27/25 08:00 05/27/25 08:23 05/27/25 08:36 Temperature Pulse Rate 90 86 Respiratory Rate Blood Pressure Pulse Oximetry Oxygen Delivery Room Air Oxygen Flow Rate 05/27/25 08:37 05/27/25 10:00 05/27/25 11:24 Temperature Pulse Rate 86 83 64 Respiratory Rate 22 H Blood Pressure 114/84 Pulse Oximetry 99 Oxygen Delivery Nasal Cannula Oxygen Flow Rate 2 05/27/25 11:39 Temperature Pulse Rate 68 Respiratory Rate 20 Blood Pressure 123/77 Pulse Oximetry 97 Oxygen Delivery Room Air Oxygen Flow Rate Intake/Output Intake/Output: Intake & Output 05/24/25 05/25/25 05/26/25 05/27/25 23:59 23:59 23:59 23:59 Intake Total 2271.0 1174.4 1890 550 Output Total 1975 7335 2900 1050 Balance 296.0 -6160.6 -1010 -500 Meds/Results Medications: Active Medications Generic Name Dose Route Start Last Admin Trade Name Freq PRN Reason Stop Dose Admin Acetaminophen 650 mg 05/22/25 16:11 Acetaminophen 325 Mg Tablet PO Q6H PRN Pain Rated 1-3, Fever Albuterol/Ipratropium 3 ml 05/22/25 16:11 05/22/25 20:47 Ipratropium 0.5 Mg/Albuterol Sulfate 2.5 Mg (Base) Ampul.Neb 3 Ml INHALATION 3 ml Q6HRT PRN Administration Shortness Of Breath Or Wheezing Amiodarone HCl 400 mg 05/25/25 21:00 05/27/25 08:36 Amiodarone Hcl 200 Mg Tablet PO 400 mg Q12HR CHERY Administration Apixaban 5 mg 05/23/25 09:00 05/27/25 08:37 Apixaban 5 Mg Tablet PO 5 mg Q12HR CHERY Administration Aspirin 81 mg 05/23/25 09:00 05/27/25 08:37 Aspirin 81 Mg Enteric Tablet PO 81 mg QAM CHERY Administration Atorvastatin Calcium 40 mg 05/23/25 09:00 05/27/25 08:37 Atorvastatin 40 Mg Tablet PO 40 mg DAILY CHERY Administration Benzonatate 100 mg 05/22/25 16:11 Benzonatate 100 Mg Capsule PO TID PRN Cough Dextrose 12.5 gm 05/22/25 16:41 Dextrose 50% 25 Gm/50 Ml Syringe IV PUSH PRN PRN Hypoglycemia Protocol Furosemide 40 mg 05/26/25 17:00 05/27/25 08:39 Furosemide 40 Mg Tablet PO Not Given BID CHERY Glucagon 1 mg 05/22/25 16:41 Glucagon For Inj 1 Mg Vial IM PRN PRN Hypoglycemia Protocol Glucose 15 gm 05/22/25 16:41 Glucose Oral Gel 15 Gm Of Glucse In 37.5 Gm Tube PO PRN PRN Hypoglycemia Protocol Guaifenesin 600 mg 05/22/25 21:00 05/27/25 08:39 Guaifenesin 12 Hr 600 Mg Tabcr PO Not Given Q12HR [facility] Dextrose 1,000 mls @ 100 mls/hr 05/22/25 16:41 Dextrose 5% 1,000 Ml IVPB PRN PRN Hypoglycemia Protocol Insulin Aspart 4 - 8 units 05/22/25 17:00 05/27/25 10:05 Insulin Aspart (*Bkc) 100 Units/Ml SUB-Q Not Given TIDWM [facility] Protocol Metoprolol Tartrate 5 mg 05/23/25 18:20 05/23/25 21:45 Metoprolol Tartrate Inj 5 Mg/5 Ml Vial IV PUSH 5 mg Q6HR PRN Administration Tachycardia Metoprolol Tartrate 25 mg 05/24/25 09:00 05/27/25 08:37 Metoprolol Tartrate 25 Mg Tablet PO 25 mg Q6H CHERY Administration Nitroglycerin 0.4 mg 05/22/25 16:12 Nitroglycerin Sl 0.4 Mg Tablet SUBLINGUAL Q5M PRN Chest Pain Radiology Results: ITS Impressions Chest X-Ray 05/22/25 15:25 IMPRESSION: 1. Findings suggest multi lobar pneumonia. Findings should be followed radiographically until clear. Labs Labs: Laboratory Results - last 24 hr 05/26/25 05/26/25 05/27/25 15:39 20:30 04:05 WBC RBC Hgb Hct MCV MCH MCHC RDW Plt Count MPV Immature Gran % (Auto) Neut % (Auto) Lymph % (Auto) Cole % (Auto) Eos % (Auto) Baso % (Auto) Lymph # (Auto) Cole # (Auto) Eos # (Auto) Baso # (Auto) Abs Immat Gran (auto) Absolute Neuts (auto) Absolute Nucleated RBC Nucleated RBC % Sodium 138 Potassium 3.6 Chloride 105 Carbon Dioxide 27 Anion Gap 6 BUN 16 Creatinine 1.59 H Estim Creat Clear Calc 55 Estimated GFR 45 L Glucose 93 POC Capillary Glucose 109 H 106 H Calcium 8.5 Total Bilirubin 0.9 AST 68 H ALT 15 Alkaline Phosphatase 69 Total Protein 6.3 Albumin 3.3 L 05/27/25 05/27/25 04:06 07:07 WBC 6.1 RBC 4.48 L Hgb 13.1 L Hct 40.3 L MCV 90.0 MCH 29.2 MCHC 32.5 RDW 13.9 Plt Count 207 MPV 11.5 H Immature Gran % (Auto) 0.3 Neut % (Auto) 56.5 Lymph % (Auto) 30.2 Cole % (Auto) 10.1 H Eos % (Auto) 2.4 Baso % (Auto) 0.5 Lymph # (Auto) 1.85 Cole # (Auto) 0.6 Eos # (Auto) 0.2 Baso # (Auto) 0.0 Abs Immat Gran (auto) 0.02 Absolute Neuts (auto) 3.5 Absolute Nucleated RBC 0.000 Nucleated RBC % 0.0 Sodium Potassium Chloride Carbon Dioxide Anion Gap BUN Creatinine Estim Creat Clear Calc Estimated GFR Glucose POC Capillary Glucose 97 Calcium Total Bilirubin AST ALT Alkaline Phosphatase Total Protein Albumin Quality VTE Prophylaxis VTE prophylaxis: pharmacologic ordered
--- NOTE | 2025-05-27 12:08 | WPDCARDVER ---
Cardioversion Cardioversion Date of procedure: 05/27/25 Procedure: DC cardioversion Pre-op diagnosis: Symptomatic atrial fibrillation Post-op diagnosis: Same Description of procedure: After GAVI was performed which showed no left atrial appendage thrombus, then DC cardioversion was performed. Risks/benefits/alternative to DC cardioversion discuss with patient and he gave informed consent. Defibrillator pads placed on anterior and posterior chest. Anesthesiology provided general sedation. Cardioversion set at 200 J synchronized biphasic energy and with 1 shock he cardioverted to sinus rhythm. We did notice minor bleeding on bottom teeth after cardioversion. Patient tolerated procedure well with no immediate complications. Sedation: Provided by anesthesiology Conclusion: 1. Successful DC cardioversion from atrial fibrillation to sinus rhythm. [facility] Billing for Cardioversion: Cardioversion
--- NOTE | 2025-05-27 13:41 | P.DS_ITS ---
DS: Admitting Diagnosis Discharge Date 05/27/2025 Admitting Diagnosis Pneumonia/AFib with RVR DS: Discharge Diagnosis Discharge Diagnosis (1) Sepsis: Qualifiers: Sepsis acute organ dysfunction status: without acute organ dysfunction Sepsis type: sepsis due to unspecified organism Qualified Code(s): A41.9 - Sepsis, unspecified organism Code(s): A41.9 - Sepsis, unspecified organism Status: Inactive (2) Pneumonia: Qualifiers: Laterality: bilateral Lung location: unspecified part of lung Pneumonia type: due to unspecified organism Qualified Code(s): J18.9 - Pneumonia, unspecified organism Code(s): J18.9 - Pneumonia, unspecified organism Status: Acute (3) Atrial fibrillation with rapid ventricular response: Code(s): I48.91 - Unspecified atrial fibrillation Status: Acute (4) Elevated troponin: Code(s): R79.89 - Other specified abnormal findings of blood chemistry Status: Inactive (5) Diabetes: Qualifiers: Diabetes mellitus complication status: without complication Diabetes mellitus long filler cigar roller machine insulin use: without long filler cigar roller machine use Diabetes mellitus type: type 2 Qualified Code(s): E11.9 - Type 2 diabetes mellitus without complications Code(s): E11.9 - Type 2 diabetes mellitus without complications Status: Chronic (6) Hypertension: Qualifiers: Hypertension type: primary hypertension Qualified Code(s): I10 - Essential (primary) hypertension Code(s): I10 - Essential (primary) hypertension Status: Chronic (7) Hyperlipidemia: Qualifiers: Hyperlipidemia type: pure hypercholesterolemia Qualified Code(s): E78.00 - Pure hypercholesterolemia, unspecified Code(s): E78.5 - Hyperlipidemia, unspecified Status: Acute DS: Summary Hospital Course Reason for hospitalization: * Atrial fibrillation with rapid ventricular response * Acute combined systolic and diastolic heart failure exacerbation (EF 30?35%) * Multilobar pneumonia * Sepsis without acute organ dysfunction * Hypertension * Hyperlipidemia * Type 2 diabetes mellitus without complications * Chronic kidney disease stage IIIA * History of CVA * Possible severe aortic stenosis (requires outpatient reassessment) Hospital Course: The patient presented with 2?3 days of shortness of breath, cough, and palpitations. Initial evaluation revealed AFib with RVR, multilobar pneumonia on CXR, elevated BNP, and mildly elevated troponin consistent with demand ischemia. He met sepsis criteria based on tachycardia and tachypnea without hypotension or hypoxia. He was treated with IV ceftriaxone and azithromycin, later transitioned to oral Augmentin and azithromycin to complete a 5-day course. AFib with RVR required escalation from diltiazem and beta-blockade to IV amiodarone, then transition to oral amiodarone with improved rate control. Cardiology was consulted. Echocardiogram showed EF 30?35% with concern for significant aortic stenosis (poor image quality), to be reassessed outpatient once rhythm control improves. Patient was cardioverted back to SR.He was started on IV amiodarone drip and heart rate improved. Shifted to p.o. amiodarone last evening - 400mg b.i.d. for one week, followed by 200mg daily. Continue metoprolol 25 mg q.6 hours with holding parameters. can change Metoprolol to 50 mg BID at discharge. Continue Eliquis. Heart failure exacerbation improved with diuresis; the patient appeared euvolemic prior to discharge. Troponins trended down, and there was no evidence of acute coronary syndrome. Renal function remained near baseline. Symptoms resolved, and the patient was stable on room air at discharge. Discharge Condition Stable, ambulatory, hemodynamically stable, on room air, tolerating oral medications. Status at Discharge Functional status at discharge: independent ambulation Time Spent with Patient Time attestation: Total time spent providing and/or coordinating discharge services: Time spent: Greater than 30 minutes Exam Const: Other: , male, nontoxic appearance Resp: Other: diminished breath sounds . No wheezing. No respiratory distress, mild tachypnea. Cardio: Other: S1-S2 present without murmur, rub, ectopy GI: Other: Abdomen soft, nondistended, nontender. Normoactive bowel sounds in all quadrants. Neuro: Other: A&O x4 Extrem: Other: trace edema BLE, improved Psych: Other: Good insight and judgment, very pleasant DS: Data Data Completed and Pending Labs on day of discharge: Labs from last 24 hours 05/27/25 05/27/2525 12:06 07:07 04:06 WBC 6.1 RBC 4.48 L Hgb 13.1 L Hct 40.3 L MCV 90.0 MCH 29.2 MCHC 32.5 RDW 13.9 Plt Count 207 MPV 11.5 H Immature Gran % (Auto) 0.3 Neut % (Auto) 56.5 Lymph % (Auto) 30.2 Cecil % (Auto) 10.1 H Eos % (Auto) 2.4 Baso % (Auto) 0.5 Lymph # (Auto) 1.85 Cecil # (Auto) 0.6 Eos # (Auto) 0.2 Baso # (Auto) 0.0 Abs Immat Gran (auto) 0.02 Absolute Neuts (auto) 3.5 Absolute Nucleated RBC 0.000 Nucleated RBC % 0.0 Sodium Potassium Chloride Carbon Dioxide Anion Gap BUN Creatinine Estim Creat Clear Calc Estimated GFR Glucose POC Capillary Glucose 89 97 Calcium Total Bilirubin AST ALT Alkaline Phosphatase Total Protein Albumin 05/27/25 05/26/25 05/26/25 04:05 20:30 15:39 WBC RBC Hgb Hct MCV MCH MCHC RDW Plt Count MPV Immature Gran % (Auto) Neut % (Auto) Lymph % (Auto) Cecil % (Auto) Eos % (Auto) Baso % (Auto) Lymph # (Auto) Cecil # (Auto) Eos # (Auto) Baso # (Auto) Abs Immat Gran (auto) Absolute Neuts (auto) Absolute Nucleated RBC Nucleated RBC % Sodium 138 Potassium 3.6 Chloride 105 Carbon Dioxide 27 Anion Gap 6 BUN 16 Creatinine 1.59 H Estim Creat Clear Calc 55 Estimated GFR 45 L Glucose 93 POC Capillary Glucose 106 H 109 H Calcium 8.5 Total Bilirubin 0.9 AST 68 H ALT 15 Alkaline Phosphatase 69 Total Protein 6.3 Albumin 3.3 L Preliminary micro results at discharge 05/22/25 16:43 Blood Culture - Preliminary Blood 05/22/25 17:03 Blood Culture - Preliminary Blood Discharge Plan Discharge Attending physician on discharge: René Cohen Consulting providers: Bal Reynolds; Aneudy Flor; Kelyl Yanez; Gina Edwards; Lidia Dickson; Abelardo Vogt; Sophia Sanchez; Raina Lowe; Flaco Campoverde; Zackery Rowland Discharging Clinician: Roro Palma Anticipated Discharge Date/Time: 05/27/25 13:06 Patient Disposition: Home Activity: may shower and as tolerated Diet: heart healthy Discharge Instructions: 1). AFIB * I have prescribed 400mg b.i.d. for one week, followed by 200mg daily and Metoprolol to 50 mg BID per the Supervisory Aide * I have continued your Eliquis. 2). Aortic Stenosis * Follow-up with Dr. Reynolds 3). Hypertension * resume lisinopril at 10 mg daily at discharge and continue Metoprolol 50 mg BID. Hold coreg and norvasc 4). Pneumonia * You completed your antibiotic while hospitalized 5). Diabetes * Pioglitazone is contraindicated in CHF patients and would not restart it as an outpatient. * Hold metformin for 2 to 3 days post discharge How can you care for yourself at home? ? Keep track of any new symptoms or changes in your symptoms. ? Rest until you feel better. ? Be safe with medicines. Take your medicines exactly as prescribed. Call your doctor if you think you are having a problem with your medicine. ? Do not drive after taking a prescription pain medicine. ? Ensure to follow-up with primary care physician as indicated and provide updated medication list provided to you at discharge. When should you call for help? Call 911 anytime you think you may need emergency care. For example, call if: ? You passed out (lost consciousness). Call your doctor now or seek immediate medical care if: ? You have new symptoms like fever, difficulty breathing, Chest pain, vomiting, or rash. ? You have new or different pain. ? You are confused and are having trouble thinking clearly. ? Your symptoms are getting worse. Watch closely for changes in your health, and be sure to contact your doctor if: ? You do not get better as expected. Patient Instructions: Antibiotic Form, Apixaban (By mouth), Heart Failure (GEN), A-fib (Atrial Fibrillation) (DC), Community Acquired Pneumonia (DC) Patient Language: Greek Stand Alone Forms: General Discharge Information Follow-up/Referrals: Bal Reynolds MD [Physician, Cardiology] - Call for Appointment Referral Note: Aortic Stenosis Peterson Oneal MD [Primary Care Provider, [facility]] - 3 Weeks Discharge Medications: New aspirin 81 mg Tablet,Delayed Release (Dr/Ec) 81 mg PO QAM Qty: 30 0RF metoprolol tartrate 50 mg tablet 50 mg PO BID Qty: 60 0RF amiodarone 200 mg tablet 400 mg PO DAILY Qty: 30 0RF Rx Instructions: Take 2 tablets twice a day for 7 days amiodarone 200 mg tablet 200 mg PO DAILY Qty: 30 0RF Continued Eliquis 5 mg tablet 5 mg PO BID Qty: 180 1RF Held metformin 500 mg tablet extended release 24hr 1,000 mg PO DAILY Qty: 180 1RF Hold Instructions: Resume on 05/30/25. Discontinued amlodipine 10 mg tablet 10 mg PO DAILY Qty: 90 1RF carvedilol 3.125 mg tablet 3.125 mg PO Q12H Qty: 180 1RF Rx Instructions: must administer with a meal/food pioglitazone 30 mg tablet 30 mg PO DAILY Qty: 90 1RF No Action atorvastatin 40 mg tablet 40 mg PO DAILY Qty: 90 1RF empagliflozin 10 mg tablet 10 mg PO DAILY Qty: 90 1RF lisinopril 10 mg tablet 10 mg PO DAILY Qty: 90 1RF Date of admission: 05/23/25 10:36 Primary Care Provider: Peterson Oneal Admitting Provider: Fuad Noyola Attending physician on admission: Roro Palma Condition: Stable Quality VTE Prophylaxis VTE prophylaxis: pharmacologic ordered Hospitalist MIPS Heart Failure (Exclusion) Patient has history of Heart Transplant or Left Ventricular Assistive Device?: No IF YES, STOP HERE Heart Failure (Qualifier) Patient has current or prior documentation of LVEF less than or equal to 40%, or mod/servere depressed LVSF?: Yes IF NO, STOP HERE If Yes, Heart Failure (Qualifier) Patient was prescribed or already taking an Angiotensin-Converting Enzyme (FRANSISCO) Inhibitor, or Antiotensin Receptor Racquel (ARB): Yes Patient was prescribed or already taking bisoprolol, carvedilol, or sustained release metoprolol succinate: Yes
== END 2025-05-27 14:12 | disposition home or self-care (01) | DRG 871 ==
LOC: ANHED 15:51 → ANHIMU 17:40
PROVIDERS: Internal Medicine Cardiovascular Disease; Nurse Practitioner Adult Health; Student in an Organized Health Care Education/Training Program; Admitting Provider Internal Medicine; Emergency Provider Emergency Medicine; PCP Family Medicine; Visit Provider Nurse Practitioner Family
PROC: 5A2204Z Restoration of Cardiac Rhythm, Single (ICD-10-PCS; principal; 2025-05-27 11:00)
PROC: B24BZZ4 Ultrasonography of Heart with Aorta, Transesophageal (ICD-10-PCS; CPT 93312; 2025-05-27 11:00)
DX: A41.9 Sepsis, unspecified organism (principal); I50.43 Acute on chronic combined systolic (congestive) and diastolic (congestive) heart failure; J18.9 Pneumonia, unspecified organism; I13.0 Hypertensive heart and chronic kidney disease with heart failure and stage 1 through stage 4 chronic kidney disease, or unspecified chronic kidney disease; I48.20 Chronic atrial fibrillation, unspecified; G95.9 Disease of spinal cord, unspecified; I24.89 Other forms of acute ischemic heart disease; I35.0 Nonrheumatic aortic (valve) stenosis; N18.30 Chronic kidney disease, stage 3 unspecified; E11.22 Type 2 diabetes mellitus with diabetic chronic kidney disease; E78.5 Hyperlipidemia, unspecified; E66.09 Other obesity due to excess calories; R79.89 Other specified abnormal findings of blood chemistry; Z20.822 Contact with and (suspected) exposure to COVID-19; Z87.891 Personal history of nicotine dependence; Z79.01 Long term (current) use of anticoagulants
CPT/HCPCS: 36415; 71045; 80048; 80053; 82948; 83605; 83690; 83735; 83880; 84145; 84443; 84484; 85025; 85610; 85730; 87040; 87637; 92960; 93005; 93312; 93320; 93325; 94640; 96365; 96366; 96375; 96376; 99285; A4565; A9270; C8929; G0378; J0283; J0456; J0616; J0696; J1160; J1163; J1938; J7040; J7050; J7120; Q9957

== ENCOUNTER 2025-06-10 07:50 | Outpatient (CLI) | payer OTHER, SELFPAY ==
--- NOTE | ~2025-06-10 | XR_ITS ---
XR chest 2V 06/10/2025 08:07 Indication: Chest palpitations and shortness of breath Procedure: 2 view chest Comparison: 05/22/2025 Findings: Heart size normal. Small pleural effusions. Left upper lobe pneumonia. No acute osseous abnormality. Impression: 1: Left upper lobe pneumonia. 2: Small pleural effusions. Reviewed, dictated and finalized at location O. ER OPERATORS SUPERVISOR Impression: 1: Left upper lobe pneumonia. 2: Small pleural effusions.
--- OUTSIDE RECORDS SUMMARY | 2025-06-10 07:54 | XMS_ITS | Clinical Summary ---
Author Organization [facility] [address] Address [address] [place] [address] Care Team Providers Care [place] Management Specialist Name Role Phone Peterson Oneal MD Primary Care Provider Allergies No known active allergies Medications metFORMIN [...] 3.125 mg tabletIndicatio ns:PAF (paroxysmal atrial fibrillation) Take 1 tablet (3.125 mg total) by mouth 2 (two) times a day with meals 180 tablet 1 11/25/2020 Active Active Problems Problem Noted Date Diagnosed Date Nonrheumatic aortic valve stenosis 11/01/2020 Essential hypertension 09/26/2020 Obesity, Class III, BMI 40-49.9 (morbid obesity) 09/26/2020 Hyperlipidemia associated with type 2 diabetes m nicole 09/26/2020 PAF (paroxysmal atrial fibrillation) 09/20/2020 Encounters Date Type Department Care Team Description 06/08/2025 Orders Only [facility] Cardiology [address] [place] [address] Bal Reynolds MD 05/27/2025 Orders Only [facility] [address] [place] [address] Keron Orr MD 05/27/2025 Telephone Cardiology Raina Lowe NP from Last 3 Months Medical History Medical History Date Comments Hypertension Diabetes mellitus Stroke (HCC) Family History Medical History Relation [...] on file Legal 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 Gender Identity Not on file Sexual Orientation [...] CDT Plan of Treatment Not on file Procedures Procedure Name Priority Date/Time Associated Diagnosis Comments CARDIOLOGY DOCUMENT SCAN Routine 05/27/2025 9:17 AM RAILWAY SIGNAL ELECTRICIAN CARDIOLOGY DOCUMENT SCAN 05/27/2025 CARDIOLOGY DOCUMENT SCAN Routine 05/26/2025 8:58 AM RAILWAY SIGNAL ELECTRICIAN CARDIOLOGY DOCUMENT SCAN Routine 05/25/2025 8:55 AM RAILWAY SIGNAL ELECTRICIAN CARDIOLOGY DOCUMENT SCAN Routine 05/24/2025 8:41 AM RAILWAY SIGNAL ELECTRICIAN CARDIOLOGY DOCUMENT SCAN Routine 05/23/2025 8:30 AM RAILWAY SIGNAL ELECTRICIAN from Last 3 Months Results * Cardiology Document Scan (05/27/2025 9:17 AM RAILWAY SIGNAL ELECTRICIAN) Anatomical Region Laterality Modality Other Raina Lowe NP CV CARDIAC SERVICE S PROCEDURES Final Result * Cardiology Document Scan (05/27/2025) Anatomical Region Laterality Modality Other Keron Orr MD CV CARDIAC SERVICES PROCE DURES Final Result * Cardiology Document Scan (05/26/2025 8:58 AM RAILWAY SIGNAL ELECTRICIAN) Anatomical Region Laterality Modality Other Lidia Dickson NP CV CARDIAC SERVICES PROCEDUR ES Final Result * Cardiology Document Scan (05/25/2025 8:55 AM RAILWAY SIGNAL ELECTRICIAN) Anatomical Region Laterality Modality Other Lidia Dickson NP CV CARDIAC SERVICES PROCEDUR ES Final Result * Cardiology Document Scan (05/24/2025 8:41 AM RAILWAY SIGNAL ELECTRICIAN) Anatomical Region Laterality Modality Other Bal Reynolds MD CV CARDIAC SERVICES PROCEDURES Final Result * Cardiology Document Scan (05/23/2025 8:30 AM RAILWAY SIGNAL ELECTRICIAN) Anatomical Region Laterality Modality Other Bal Reynolds MD CV CARDIAC SERVICES PROCEDURES Final Result from Last 3 Months Insurance [facility] Care Teams [place] Management Specialist Relationship Specialty Start Date End Date Peterson Oneal MD [address] [place] [id number] PCP - General Family Medicine 09/15/20
--- OUTSIDE RECORDS SUMMARY | 2025-06-10 07:54 | XMS_ITS | Clinical Summary ---
Author Organization [facility] Address [address] [place] [id number] Care Team Providers Care Csr Retail Name Role Phone None, Provider MD Primary Care Provider Unavaila ble Allergies No known active allergies Social History Tobacco Use Types Packs/Day Years [...] of 2) 2016 COVID-19 Vaccine (3 - 2024-2 6 season) 2025 05/15/2021, 08/15/2020 Influenza Adult (#1) 2025 03/17/2020, 04/01/2018, 03/11/2014 DTaP, Tdap and Td Vaccines ( 3 - Td or Tdap) 05/01/2028 05/01/2018, 04/30/2008 Hepatitis A Vaccines Aged Out No long er eligible based on patient's age to complete this topic Meningococcal B Vaccine Aged Out No l onger eligible based on patient's age to complete this topic Meningococcal Vaccine Aged Out No tank gisela eligible based on patient's age to complete this topic RSV Immunizations Under 20 Months Aged Out No longer eligible b ased on patient's age to complete this topic Insurance [facility] Care Teams Csr Retail Relationship Specialty Start Date End Date None, Provider, MD PCP - General UNKNOWN PHYSICIAN SPECIALTY 11/21/24
--- OUTSIDE RECORDS SUMMARY | 2025-06-10 07:54 | XMS_ITS | Encounter Summary ---
Author Organization [facility] Healthcare Address [address] [place] [address] Care Team Providers Care Conference Translator Name Role Phone Peterson Oneal MD Primary Care Provider [phone] Encounter Details Date Type Department Care Team (Late st Contact Info) Description 06/08/2025 Orders Only [facility] Medical Group Cardiology [address] [place] [address] [facility] MD [address] [address] Social History Tobacco Use Types Packs/Day Years Used Date Smoking Tobacco: Never Smokeless Tobacco: Never Personal Safety Answer Date Recorded Getting School Help Needed Not on file 08/05 Sex and Gender Information Value Date Recorded Sex Assigned at Not on file 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 Gender Identity Not on file Sexual Orientation Not on file documented as of this encounter Plan of Treatment Not on file documented as of this encounter Procedures Procedure Name Priority Date/Time Associated Diagnosis Comments CARDIOLOGY DOCUMENT SCAN Routine 05/27/2025 9:17 AM DEHYDROGENATION CONVERTER OPERATOR CARDIOLOGY DOCUMENT SCAN Routine 05/26/2025 8:58 AM DEHYDROGENATION CONVERTER OPERATOR CARDIOLOGY DOCUMENT SCAN Routine 05/25/2025 8:55 AM DEHYDROGENATION CONVERTER OPERATOR CARDIOLOGY DOCUMENT SCAN Routine 05/24/2025 8:41 AM DEHYDROGENATION CONVERTER OPERATOR CARDIOLOGY DOCUMENT SCAN Routine 05/23/2025 8:30 AM DEHYDROGENATION CONVERTER OPERATOR documented in this encounter Results * Cardiology Document Scan (05/27/2025 9:17 AM DEHYDROGENATION CONVERTER OPERATOR) Anatomical Region Laterality Modality Other Raina Lowe NP CV CARDIAC SERVICE S PROCEDURES Final Result * Cardiology Document Scan (05/26/2025 8:58 AM DEHYDROGENATION CONVERTER OPERATOR) Anatomical Region Laterality Modality Other Lidia Dyson Yessi WILLIS CV CARDIAC SERVICES PROCEDUR ES Final Result * Cardiology Document Scan (05/25/2025 8:55 AM DEHYDROGENATION CONVERTER OPERATOR) Anatomical Region Laterality Modality Other Lidia Anne Yessi WILLIS CV CARDIAC SERVICES PROCEDUR ES Final Result * Cardiology Document Scan (05/24/2025 8:41 AM DEHYDROGENATION CONVERTER OPERATOR) Anatomical Region Laterality Modality Other Bal Reynolds MD CV CARDIAC SERVICES PROCEDURES Final Result * Cardiology Document Scan (05/23/2025 8:30 AM DEHYDROGENATION CONVERTER OPERATOR) Anatomical Region Laterality Modality Other Bal Reynolds MD CV CARDIAC SERVICES PROCEDURES Final Result documented in this encounter Visit Diagnoses Not on filedocumented in this encounter Care Teams Conference Translator Relationship Specialty Start Date End Date Peterson Oneal MD [address] [place] [id number] PCP - General Family Medicine 09/15/20 documented as of this encounter
== END 2025-06-10 07:51 | disposition home or self-care (01) ==
PROVIDERS: PCP Family Medicine
DX: J18.9 Pneumonia, unspecified organism (principal); J90 Pleural effusion, not elsewhere classified
CPT/HCPCS: 71046